=== PATIENT | female | born 1990 | race Caucasian/White ===

== ENCOUNTER → 2018-04-08 09:55 | Outpatient (CLI) | payer OTHER, MEDICAID, SELFPAY | PROVIDERS: Visit Provider Family Medicine | DX: Z34.90 Encounter for supervision of normal pregnancy, unspecified, unspecified trimester (principal) | CPT/HCPCS: 86787 ==

== ENCOUNTER → 2018-05-25 12:26 | Outpatient (CLI) | payer OTHER, MEDICAID, SELFPAY ==
[2018-05-25 16:15] LABS: Vitamin D 25 Hydroxy (D3) 29.2 ng/mL (30.0-100.0)
[2018-06-01 09:59] LABS: AFP, Serum 40.4 ng/mL; Calc Gestational Age 16.9; Cigarette Smoker Y; Donated Egg NOT GIVEN; Donor Egg Age NOT GIVEN; Estriol, Free 1.27 ng/mL; Inhibin A, Dimeric 113 pg/mL; Maternal Weight 189 lbs; Number of Fetuses 1; Previous Pregnancy Down Syndro NOT GIVEN; hCG, MoM 0.47
== END ==
PROVIDERS: Visit Provider Family Medicine
DX: Z34.90 Encounter for supervision of normal pregnancy, unspecified, unspecified trimester (principal); Z3A.14 14 weeks gestation of pregnancy
CPT/HCPCS: 36415; 82105; 82306; 82677; 84702; 86336

== ENCOUNTER → 2018-06-02 10:41 | Outpatient (CLI) | payer OTHER, MEDICAID, SELFPAY ==
[2018-06-02 13:13] LABS: TSH w/ Reflex to FT4 0.64 uIU/mL (0.47-4.68)
== END ==
PROVIDERS: Visit Provider Family Medicine
DX: Z86.39 Personal history of other endocrine, nutritional and metabolic disease (principal); Z3A.14 14 weeks gestation of pregnancy
CPT/HCPCS: 36415; 84443

== ENCOUNTER → 2018-06-10 09:00 | Outpatient (CLI) | payer OTHER, MEDICAID, SELFPAY ==
--- NOTE | 2018-06-10 09:02 | DI.US.S_ITS ---
PROCEDURE: US OB >= 14 WEEKS FETUS INDICATIONS: Anatomy Survey OUTSIDE/PRIOR DATING DATA: Last menstrual period (LMP): Not available. LMP-based estimated date of delivery (EDILIA): Not available. First dating scan (date and location): 03/25/18. Estimated date of delivery (EDILIA) from first dating scan: 11/02/18, plus or -5 days. TECHNIQUE: Real-time scanning was performed of the fetus, with image documentation and biometric measurements. Endovaginal scanning: Not needed for this study COMPARISON: None. FINDINGS: General: A single living intrauterine gestation is present. Presentation: Breech. Placenta: Placental position is posterior, without previa. Amniotic fluid index: 17.1 cm, normal range is 5-24 cm. heart rate: 155 beats per minute. Maternal cervical canal: 5.0 cm long. Normal lower limit is 2.5 cm. biometrics: Biparietal diameter: 4.7 cm, 20 weeks 2 days Head circumference: 17.3 cm, 19 weeks 6 days Abdominal circumference: 14.9 cm, 20 weeks 1 day Femur length: 3.2 cm, 19 weeks 6 days Estimated gestational age from initial scan: 19 weeks 2 days Composite gestational age from present scan: 20 weeks 0 days Estimated weight and percentile: 324 g, 83rd percentile Measurement variability for biometric dating: +/- 7 days from 14 weeks to 15 weeks 6 days gestation, +/- 10 days from 16 weeks to 21 weeks 6 days gestation, +/- 2 weeks from 22 weeks to 27 weeks 6 days gestation, +/- 3 weeks for 28 weeks gestation or later. weight reference: 4500 g or EFW >90/95% is considered macrosomia or large for gestational age. EFW <10% is small for gestational age. EFW 5% or less is considered intra-uterine growth restriction. Anatomic survey: Neuro: Ventricles are non-dilated at less than 10 mm. Cisterna magna is normal at 3-11 mm. Cerebellum is normal in size and morphology. Nuchal skin fold: Normal at less than 6 mm between 14-21 weeks gestational age. Face: Nose and lips, facial profile are normal. Spine: No evidence for spina bifida. Heart: 4-chambered heart is present, with normal ventricular outflow tracts. Note is made of an echogenic focus at the left ventricle, considered an incidental finding in the absence of any additional abnormality elsewhere. Diaphragm: Diaphragm is intact. Stomach: Left-sided stomach is present. Kidneys: No hydronephrosis. Normal is less than 5 mm in 2nd trimester, less than 7 mm in 3rd trimester. Cord: 3-vessel cord has orthotopic insertion. Bladder: Normal in size. Extremities: All 4 extremities identified. IMPRESSION: Appropriate interval growth, no anomaly found. The delivery date is projected to be centered on 11/02/18, plus or -5 days, based on the first OB ultrasound that was performed 03/25/18. Dictated by: Eulogio Lock M.D. on 06/10/2018 at 12:29 Approved by: Eulogio Lock M.D. on 06/10/2018 at 12:32
== END ==
PROVIDERS: PCP Family Medicine; Visit Provider Family Medicine
DX: Z34.02 Encounter for supervision of normal first pregnancy, second trimester (principal); Z3A.20 20 weeks gestation of pregnancy
CPT/HCPCS: 76811

== ENCOUNTER → 2018-08-07 15:30 | Outpatient (CLI) | payer OTHER, MEDICAID, SELFPAY ==
[2018-08-07 17:45] LABS: Hematocrit 33.4 % (36-46); Hemoglobin 11.4 g/dL (12.0-16.0)
[2018-08-07 18:12] LABS: GTT (PREG) 1 Hour PP 50gm Dose 125 mg/dL (76-139)
[2018-08-07 18:43] LABS: TSH w/ Reflex to FT4 0.57 uIU/mL (0.47-4.68)
== END ==
PROVIDERS: PCP Family Medicine; Visit Provider Family Medicine
DX: Z3A.26 26 weeks gestation of pregnancy (principal); E05.90 Thyrotoxicosis, unspecified without thyrotoxic crisis or storm; O99.280 Endocrine, nutritional and metabolic diseases complicating pregnancy, unspecified trimester
CPT/HCPCS: 36415; 82950; 84443; 85014; 85018

== ENCOUNTER → 2018-10-06 08:10 | Outpatient (CLI) | payer OTHER, MEDICAID, SELFPAY ==
--- NOTE | 2018-10-06 08:12 | DI.US.S_ITS ---
PROCEDURE: US OB LIMITED INDICATIONS: size greater than dates OUTSIDE/PRIOR DATING DATA: Last menstrual period (LMP): Unknown. LMP-based estimated date of delivery (EDILIA): Unknown. First dating scan (date and location): 03/25/18. Estimated date of delivery (EDILIA) from first dating scan: 11/02/18. TECHNIQUE: Real-time scanning was performed of the fetus, with image documentation and biometric measurements. COMPARISON: [facility], OB >= 14 WEEKS FETUS, 06/10/2018, 9:34. [facility], OB <= 14 WEEKS FETUS, 03/25/2018, 10:49. [facility], OB < 14 WEEKS + OB TRANSVAG, 03/13/2018, 12:13. FINDINGS: General: A single living intrauterine gestation is present. Presentation: Cephalic Placenta: Placental position is posterior Amniotic fluid index: 15.6 cm heart rate: 135 beats per minute. Maternal cervical canal: Not definitely seen related to positioning. biometrics: Biparietal diameter: 9.5 cm, 38 weeks 4 days Head circumference: 35.1 cm, 40 weeks 6 days Abdominal circumference: 35.0 cm, 30 weeks 6 days Femur length: 7.3 cm, 37 weeks 1 day Estimated gestational age from initial scan: 36 weeks 1 day Composite gestational age from present scan: 38 weeks 6 days Estimated weight and percentile: 3569 g (98 percentile) Measurement variability for biometric dating: +/- 7 days from 14 weeks to 15 weeks 6 days gestation, +/- 10 days from 16 weeks to 21 weeks 6 days gestation, +/- 2 weeks from 22 weeks to 27 weeks 6 days gestation, +/- 3 weeks for 28 weeks gestation or later. weight reference: 4500 g or EFW >90/95% is considered macrosomia or large for gestational age. EFW <10% is small for gestational age. EFW 5% or less is considered intra-uterine growth restriction. Other: Not applicable. IMPRESSION: Single live intrauterine at 38 weeks 6 days (current sonographic EDILIA 10/14/18) is discordant with the estimated due dates based on the previous 2 ultrasounds by greater than 2 weeks. Given the estimated weight of the 98th percentile, the possibility of developing macrosomia is difficult to exclude and clinical correlation is recommended. Dictated by: Tai Balderas M.D. on 10/06/2018 at 9:13 Approved by: Tai Balderas M.D. on 10/06/2018 at 9:17
== END ==
PROVIDERS: PCP Family Medicine; Visit Provider Family Medicine
DX: O36.63X0 Maternal care for excessive fetal growth, third trimester, not applicable or unspecified (principal); Z3A.38 38 weeks gestation of pregnancy
CPT/HCPCS: 76815

== ENCOUNTER → 2018-10-07 15:53 | Outpatient (CLI) | payer OTHER, MEDICAID, SELFPAY ==
[2018-10-08 14:23] LABS: Strep Grp B PCR NEG for Grp B Strep
== END ==
PROVIDERS: PCP Family Medicine; Visit Provider Family Medicine
DX: Z3A.36 36 weeks gestation of pregnancy (principal)
CPT/HCPCS: 87653

== ENCOUNTER → 2018-10-14 15:41 | Outpatient (CLI) | payer OTHER, MEDICAID, SELFPAY | PROVIDERS: PCP Family Medicine; Visit Provider Family Medicine | DX: N89.8 Other specified noninflammatory disorders of vagina (principal); O26.899 Other specified pregnancy related conditions, unspecified trimester | CPT/HCPCS: 87210 ==

== ENCOUNTER → 2018-10-22 12:13 | Outpatient (CLI) | payer OTHER, MEDICAID, SELFPAY ==
--- NOTE | 2018-10-22 12:37 | DI.US.S_ITS ---
PROCEDURE: US OB LIMITED INDICATIONS: SIZE >DATES OUTSIDE/PRIOR DATING DATA: Last menstrual period (LMP): Unknown. LMP-based estimated date of delivery (EDILIA): Unknown. First dating scan (date and location): 03/25/18. Estimated date of delivery (EDILIA) from first dating scan: 11/02/18. TECHNIQUE: Real-time scanning was performed of the fetus, with image documentation and biometric measurements. Endovaginal scanning: No COMPARISON: [facility], OB LIMITED, 10/06/2018, 8:41. FINDINGS: General: A single living intrauterine gestation is present. Presentation: Vertex. Placenta: Placental position is posterior, without previa. Amniotic fluid index: 12.4 cm, normal range is 5-24 cm. heart rate: 131 beats per minute. Maternal cervical canal: Not visualized. biometrics: Biparietal diameter: 40 weeks 2 days Head circumference: 41 weeks 4 days Abdominal circumference: 39 weeks 3 days Femur length: 38 weeks 5 days Estimated gestational age from initial scan: 30 weeks 3 days Composite gestational age from present scan: 40 weeks 0 days Estimated weight and percentile: 3833 g; 89th percentile Measurement variability for biometric dating: +/- 7 days from 14 weeks to 15 weeks 6 days gestation, +/- 10 days from 16 weeks to 21 weeks 6 days gestation, +/- 2 weeks from 22 weeks to 27 weeks 6 days gestation, +/- 3 weeks for 28 weeks gestation or later. weight reference: 4500 g or EFW >90/95% is considered macrosomia or large for gestational age. EFW <10% is small for gestational age. EFW 5% or less is considered intra-uterine growth restriction. Other: Not applicable. IMPRESSION: Single living IUP redemonstrated and interval growth is upper limits of normal. Dictated by: Adán SHEARER Interpreted: Yvette Rcihter MD on 10/22/2018 at 14:48 Approved by: Solitario Henry M.D. on 10/27/2018 at 10:35
== END ==
PROVIDERS: PCP Family Medicine; Visit Provider Family Medicine
DX: O36.63X0 Maternal care for excessive fetal growth, third trimester, not applicable or unspecified (principal); Z3A.40 40 weeks gestation of pregnancy
CPT/HCPCS: 76815

== ENCOUNTER 2018-11-03 09:45 | Inpatient (IN) | payer OTHER, MEDICAID, SELFPAY ==
--- NOTE | 2018-11-03 10:38 | P.HPOB_ITS ---
OB HPI Date/Time Date of admission: 11/03/18 Date Patient Seen: 11/03/18 Time Patient Seen: 12:30 History of Present Condition Chief complaint: labor & delivery : 1 Para: 0 Estimated Date of Delivery: 11/01/18 Estimated Gestational Age (weeks): 40w2d Narrative: Iveth Gutierres is a 28 year old at 40+2 weeks gestation. Patient was measuring larger than dates so US was completed at 36 weeks which gave EFW at 98%. Follow up US two weeks later gave EFW at 89%. No GDM. Patient has been taking prophylactic acyclovir due to h/o genital herpes. No outbreaks this . Pap early in was abnormal, LGSIL with +HPV. Colposcopy done early in , needs cervical biopsy . Indications Indication for induction OB: maternal discomfort and other (concern for macrosomia) History of Present care: good care, initiated at week # (10), number of visits (13) and pounds weight gain (30 lbs) Dating criteria: LMP confirmed by 2nd trimester US Ultrasounds: normal mid trimester US Obstetrical complications: none Medical complications: none Preadmission Labs Blood type: O (+) positive -: Antibody screen: negative, GBS status: negative, HBsAG: negative, HIV: negative, HSV 1: positive, HSV 2: positive and RPR/VDLR: negative -: Chlamydia screen: not detected and Gonorrhea screen: not detected -: Rubella: not immune and Varicella: immune HCT: 35 HCAB: negative PAP: Abnormal (LGSIL, needs biopsy ) Quad screen: Normal Urine: Negative Fasting blood glucose: 125 Evaluation Evaluation Baseline heart rate: 139 Variability: Average (6-10) monitor accelerations: Present monitor decelerations: Absent Uterine Contraction Intensity: Mild Category of Tracing: I Cervical dilation (cm): 2 Cervical effacement (%): 75 station: -1 Comments: Pitocin at 9 milliunits PFS Medical History Hyperthyroidism (Resolved) Goiter (Chronic) Hiatal hernia (Chronic) Surgical History History of appendectomy (Resolved) [place] teeth extracted (Resolved) Family History Other Adopted Social History marital status: occupational status: employed Smoking Status: Former smoker alcohol intake: former substance use type: marijuana Meds Home Medications Medication Instructions Recorded Confirmed Type 1 tab PO DAILY 04/07/18 04/07/18 History vitamin,calcium,dbecfykz-vden-ojfrk acid tablet acyclovir 400 mg tablet 400 mg PO BID #60 tab 09/23/18 Rx Allergies Allergy/AdvReac Type Severity Reaction Status Date / Time cetirizine [From [facility]] Allergy Mild Verified 04/07/18 14:48 some pain meds AdvReac Mild vomiting Uncoded 04/07/18 14:48 Review of Systems Review of Systems All systems reviewed & are unremarkable except as noted in HPI and below Exam Const General: cooperative, healthy appearing and comfortable HENMT Head: normal to inspection Nose: external nose normal Mouth: oral mucosae normal Eyes General: appearance normal, both eyes and all related structures Neck Neck: normal visual inspection and No lymphadenopathy Resp Effort & Inspection: normal respiratory effort Auscultation: clear to auscultation bilaterally Cardio Rate: regular rate Rhythm: regular rhythm Heart Sounds: S1 normal and S2 normal External Female Exam: external appearance normal Presentation: vertex Estimated Weight (lbs): 9 Back/Spine/Pelvis Back: normal to inspection Neuro General: alert, awake, oriented x3 and no focal motor deficits Extrem General: normal to inspection and no pedal edema Objective Labs Result Diagrams: 11/03/18 09:59 Assessment and Plan (1) 40 weeks gestation of : Current visit: Yes Status: Acute 28 year old at 40+2 weeks gestation here for elective induction for maternal discomfort and suspected macrosomina. Cowan score of 8. Risks and benefits of induction reviewed. Consent signed. Plan - GBS negative - Pitocin induction - AROM when able - Epidural upon request
[2018-11-03 10:47] LABS: Add Manual Diff / Slide Review NO; Basophils Percent Auto 0.2 % (0-2); Eosinophils Percent Auto 0.1 % (2-4); Lymphocytes Percent Auto 14.1 % (25-40); Mean Corpuscular HGB Conc 34.3 % (30-36); Mean Corpuscular Hemoglobin 28.6 PG (26-34); Mean Corpuscular Volume 83.4 fL (80-100); Monocytes Percent Auto 5.9 % (3-14); Neutrophils Absolute Auto 8300 /uL (3000-5900); Neutrophils Percent Auto 79.7 % (50-75); Platelet Count 189 X10^3/uL (150-400); White Blood Cell Count 10.4 X10^3/uL (4.5-11.0)
[2018-11-03] MEDS: LACTATED RINGERS 1,000 ML 100 ML IV (10:57)
[2018-11-03] MEDS: OXYTOCIN PREMIX 30 UNIT/500 ML PLAST..BAG IV (10:58)
[2018-11-03 12:06] VITALS: BP 142/83
--- NOTE | 2018-11-03 17:22 | PM.OBPNLAB ---
Date/Time Date Patient Seen: 11/03/18 Time Patient Seen: 17:00 Pain Control Pain control: tolerating well Pelvic Exam Dilation (cm): 2 Effacement (%): 90 station: -1 Contractions Monitor mode: External Pitocin rate (mU/min): 12 Contraction frequency (min): 2 Contraction pattern: Regular Contraction intensity: Moderate Status status: Category l Heart Rate Baseline: 120 Monitor Accelerations: Present Monitor Decelerations: Absent Monitor Variability: Moderate Comments: Assessment and Plan Assessment: induction ongoing Comments: Minimal change with pitocin all day. Will shut off pitocin, allow patient to eat and shower then give Cytotec overnight.
[2018-11-03] MEDS: ONDANSETRON 4 MG/2 ML INJ IV (20:22)
[2018-11-04] MEDS: ONDANSETRON 4 MG/2 ML INJ IV ×4 (01:11→14:14)
[2018-11-04] MEDS: miSOPROStol 25 MCG TABLET VAG (01:45)
--- NOTE | 2018-11-04 07:27 | PM.OBPNLAB ---
Date/Time Date Patient Seen: 11/04/18 Time Patient Seen: 07:09 Pain Control Pain control: tolerating well Comments: Patient had nausea and vomiting overnight. Nausea relieved with zofran. Pelvic Exam Dilation (cm): 2 Effacement (%): 90 station: -1 Amniotic membrane status: Intact Comments: 2.5 cm with cervix midline compared to very anterior yesterday Contractions Monitor mode: External Pitocin rate (mU/min): 4 Contraction frequency (min): 2 Contraction pattern: Irregular Contraction intensity: Moderate Status status: Category l Heart Rate Baseline: 120 Monitor Accelerations: Present Monitor Decelerations: Absent Monitor Variability: Moderate Assessment and Plan Assessment: induction ongoing Plan: continuous present management Comments: S/p one dose of Cytotec overnight. Restarted pitocin at 6 AM. Continue pitocin. Epidural upon request.
[2018-11-04] MEDS: LACTATED RINGERS 1,000 ML 100 ML IV ×2 (09:11→14:32)
[2018-11-04] MEDS: ACYCLOVIR 400 MG TABLET PO (12:33)
--- NOTE | 2018-11-04 14:54 | PM.OBPNLAB ---
Date/Time Date Patient Seen: 11/04/18 Time Patient Seen: 12:45 Pain Control Pain control: tolerating well and epidural Pelvic Exam Dilation (cm): 4 Effacement (%): 100 station: 0 Amniotic membrane status: Ruptured Contractions Monitor mode: External Pitocin rate (mU/min): 6 Contraction frequency (min): 2 Contraction pattern: Regular Contraction intensity: Moderate Status status: Category l Heart Rate Baseline: 120 Monitor Accelerations: Present Monitor Decelerations: Absent Monitor Variability: Moderate Assessment and Plan Assessment: active labor and induction ongoing Plan: continuous present management
[2018-11-04] MEDS: CITRIC ACID/SODIUM CITRATE 15 ML SOLUTION 30 ML PO (16:14)
--- NOTE | 2018-11-04 17:03 | PM.OBPNLAB ---
Date/Time Date Patient Seen: 11/04/18 Time Patient Seen: 17:00 Pain Control Pain control: epidural Comments: Was having right pelvic pain, epidural just redosed Pelvic Exam Dilation (cm): 10 Effacement (%): 100 station: 0 Amniotic membrane status: Ruptured Contractions Monitor mode: External Pitocin rate (mU/min): 8 Contraction frequency (min): 2 Contraction pattern: Regular Contraction intensity: Strong/Firm Status status: Category ll Heart Rate Baseline: 130 Monitor Accelerations: Present Monitor Decelerations: Variable (and early decels) Monitor Variability: Moderate Assessment and Plan Assessment: active labor Comments: Patient complete and having intermittent early and variable decelerations. Start pushing.
--- NOTE | 2018-11-04 19:55 | PM.OBPNLAB ---
Date/Time Date Patient Seen: 11/04/18 Time Patient Seen: 19:55 Pain Control Pain control: epidural (complaining of pain on the right side of the abdomen) Pelvic Exam Dilation (cm): 10 Effacement (%): 100 station: +1 Amniotic membrane status: Ruptured Contractions Monitor mode: External Pitocin rate (mU/min): 8 Contraction frequency (min): 2 Contraction pattern: Regular Contraction intensity: Strong/Firm Status status: Category ll Heart Rate Baseline: 150 Monitor Accelerations: Present Monitor Decelerations: Variable Monitor Variability: Moderate Assessment and Plan Assessment: active labor and induction ongoing Comments: Patient pushing for 2.5 hours with minimal progress. Consulted Dr. Moseley for possible forceps and she will come evaluate the patient.
--- NOTE | 2018-11-04 20:38 | PM.CN ---
History of Present Illness Date Patient Seen: 11/04/18 Time Patient Seen: 20:39 Chief complaint: labor & delivery Reason for consult: Forceps assist for vaginal delivery Requesting provider: Inez Morocho [facility] Medical History Hyperthyroidism (Resolved) Goiter (Chronic) Hiatal hernia (Chronic) Surgical History History of appendectomy (Resolved) [place] teeth extracted (Resolved) Family History Other Adopted Social History marital status: occupational status: employed Smoking Status: Former smoker alcohol intake: former substance use type: marijuana Meds Home Medications Medication Instructions Recorded Confirmed Type 1 tab PO DAILY 04/07/18 11/04/18 History vitamin,calcium,vyebscsg-yare-qklak acid tablet acyclovir 400 mg tablet 400 mg PO BID #60 tab 09/23/18 11/04/18 Rx Allergies Allergy/AdvReac Type Severity Reaction Status Date / Time cetirizine [From Zyrtec] Allergy Mild Verified 04/07/18 14:48 some pain meds AdvReac Mild vomiting Uncoded 04/07/18 14:48 Review of Systems Review of Systems Patient is requesting forceps attempt rather than proceeding with section for failure to progress. Patient is aware of the increased risk of vaginal tears including tears into the rectum with forceps. Small risk of force on the baby's head. Increased risk of shoulder dystocia. Exam Narrative Exam Narrative: The baby head was at +1 station. There was significant molding to the head. The baby was determined to be in the ARLINE position. heart tones baseline 150 with variables to the 60s with contractions and pushing. The forceps were placed without difficulty. With the 1st contraction the infant's head was brought to the hymenal ring. With the 2nd contraction the 's head was brought to . The forceps were removed and Dr. Morocho proceeded with delivery of the infant's head followed by the shoulders without significant dystocia. A nuchal cord was released. The was placed on maternal abdomen. The infant did not and immediately respond to stimulation so the cord was clamped cut and infant taken to maternal warmer. Objective Labs Result Diagrams: 11/03/18 09:59 Assessment & Plan (1) Maternal exhaustion complicating labor and delivery: Current visit: Yes Status: Acute (2) 40 weeks gestation of : Current visit: Yes Status: Acute Plan: Assessment/Plan Narrative: Primigravida at 40 weeks with maternal exhaustion with successful forceps to expedite delivery. Both mother and are doing well.
--- NOTE | 2018-11-04 20:45 | P.CONS_ITS ---
History of Present Illness Date Patient Seen: 11/04/18 Time Patient Seen: 20:39 Chief complaint: labor & delivery Reason for consult: Forceps assist for vaginal delivery Requesting provider: Inez Morocho [facility] Medical History Hyperthyroidism (Resolved) Goiter (Chronic) Hiatal hernia (Chronic) Surgical History History of appendectomy (Resolved) [place] teeth extracted (Resolved) Family History Other Adopted Social History marital status: occupational status: employed Smoking Status: Former smoker alcohol intake: former substance use type: marijuana Meds Home Medications Medication Instructions Recorded Confirmed Type 1 tab PO DAILY 04/07/18 11/04/18 History vitamin,calcium,mxcfhifj-nswu-awvvi acid tablet acyclovir 400 mg tablet 400 mg PO BID #60 tab 09/23/18 11/04/18 Rx Allergies Allergy/AdvReac Type Severity Reaction Status Date / Time cetirizine [From Zyrtec] Allergy Mild Verified 04/07/18 14:48 some pain meds AdvReac Mild vomiting Uncoded 04/07/18 14:48 Review of Systems Review of Systems Patient is requesting forceps attempt rather than proceeding with section for failure to progress. Patient is aware of the increased risk of vaginal tears including tears into the rectum with forceps. Small risk of force on the baby's head. Increased risk of shoulder dystocia. Exam Narrative Exam Narrative: The baby head was at +1 station. There was significant molding to the head. The baby was determined to be in the ARLINE position. heart tones baseline 150 with variables to the 60s with contractions and pushing. The forceps were placed without difficulty. With the 1st contraction the infant' s head was brought to the hymenal ring. With the 2nd contraction the 's head was brought to . The forceps were removed and Dr. Morocho proceeded with delivery of the 's head followed by the shoulders without significant dystocia. A nuchal cord was released. The infant was placed on maternal abdomen. The did not and immediately respond to stimulation so the cord was clamped cut and taken to maternal warmer. Objective Labs Result Diagrams: 11/03/18 09:59 Assessment & Plan (1) Maternal exhaustion complicating labor and delivery: Current visit: Yes Status: Acute (2) 40 weeks gestation of : Current visit: Yes Status: Acute Plan: Assessment/Plan Narrative: Primigravida at 40 weeks with maternal exhaustion with successful forceps to expedite delivery. Both mother and infant are doing well.
--- NOTE | 2018-11-04 21:17 | PM.OBPRVD ---
Delivery date: 11/04/18 Intrapartal events: Prolonged 2nd Stage > 2.5 hours Induction method: per pitocin protocol Delivery monitor: external FHT Route of delivery: forceps Indication for instrumentation: other (failure to descend, maternal exhaustion) Laceration description: Vaginal - 2nd Degree Delivery repair: vicryl Estimated blood loss (mL): 400 Anesthesia type: Epidural Narrative: VAGINAL DELIVERY NOTE BRIEF HISTORY: Patient is a 28-year-old at 40+3 weeks who gave on 11/04/18 at 20:30. EDILIA: 11/01/18 Hospital problems: 40 weeks of Epidural anesthesia STAGE I: Labor The patient labored for 7 hours and 41 minutes. Labor onset: 11/04/18 at 0915 Indications for Induction: Elective, maternal discomfort, suspected macrosomia Induction agents: Cytotec, pitocin Spontaneous rupture of membranes occurred at 0915 on 11/04/18. Amniotic fluid: clear though was meconium stained at delivery. She reached full dilation at 1657. Analgesia for labor was with epidural. STAGE II: Delivery The second stage of labor lasted 3 hours and 33 minutes. Due to prolonged second stage with minimal progress, Dr. Moseley was consulted and successfully brought the infant to with forceps. Delivery occurred at 2030 after reduction of a nuchal cord. was ARLINE. Infant initially placed on mother's abdomen however was pale without spontaneous respirations so was taken to the warmer. Initial was 2. rapidly improved with two minutes of PPV. 5 and 10 minute apgars were 7 and 9 respectfully. STAGE III: Placenta/Cord The third stage of labor lasted 5 minutes. Placental delivered after active management and it appeared intact with a 3 vessel cord. Pitocin bolus given after delivery of placenta. Labial laceration: Left labial first degree Vaginal laceration: Second degree Repair: 4-0 vicryl in usual fashion Complications: None. Fundus below firm at umbilicus EBL: 400 mL. Needle and sponge counts were correct. The vagina was inspected and no items were left in situ.
--- NOTE | 2018-11-05 07:47 | PM.OBPN.1 ---
Subjective - OB Patient comments: no complaints and tolerating diet baby status: doing well [place] feeding status: exclusively breast feeding Narrative: Bleeding is heavier than a period though not excessive. Patient denies pain. Ambulating and voiding without difficulty. Date Patient Seen: 11/05/18 Time Patient Seen: 08:00 Exam Vital Signs (past 8 hours): Temperature 99.4? blood pressure 127/71 heart rate 109 Narrative Exam Narrative: General: Awake and alert, no acute distress. HEENT: NCAT, EOMI, moist oral mucosa CV: Regular rate and rhythm, no murmurs, rubs or gallops Lungs: CTAB, no wheezes, rales, or rhonchi Abdomen: Soft, nontender; bowel tones active; uterus firm 1 cm below umbilicus Extremities: Warm, no edema, 2+ pedal pulses bilaterally Objective Labs Result Diagrams: 11/03/18 09:59 Assessment & Plan (1) 40 weeks gestation of : Status: Acute Current Visit: Yes (2) Maternal exhaustion complicating labor and delivery: Status: Acute Current Visit: Yes Plan day: 1 plan OB: routine care Comments: day 1 after forceps assisted vaginal delivery. Patient doing well. Anticipate discharge home tomorrow. Time Spent With Patient Total time spent is greater than 50% in coordination of care (as documented) at patient's floor/unit and/or counseling patient: less than 15 minutes
[2018-11-05] MEDS: DOCUSATE 250 MG CAPSULE PO (08:56)
--- NOTE | 2018-11-06 11:30 | PM.OBDS.1 ---
Discharge Providers Date of admission: 11/03/18 09:45 Primary care physician: Inez Morocho DO Consults: 11/04/18 21:59 Consult to Material Handling Technician Routine Comment: Discharge provider: Inez Morocho DO Discharge Date: 11/06/18 Summary Date Patient Seen: 11/06/18 Time Patient Seen: 09:45 Hospital Course: Patient is a 28-year-old G1 now P1 who delivered at 40 and 3 weeks gestation on 11/04/18 via forceps assisted vaginal delivery for lack of descent and maternal exhaustion. Infant required two minutes of PPV immediately after delivery with rapid improvement. Second-degree vaginal and labial tears were repaired in the usual fashion. She was brought in for induction due to concern for macrosomia and maternal discomfort. Infant weighed 9 pounds. course has been uncomplicated. Bleeding is moderate. Pain well controlled without any medication. Patient is ambulating, eating and voiding without difficulty. Working on breast feeding with support. Counseled patient to call for fevers, severe pain or bleeding through more than a pad an hour. Follow up with Dr. Morocho in 6 weeks. Exam Temperature 97.6 Blood pressure 125/80 Heart rate 91 General: Awake and alert, no acute distress. HEENT: NCAT, EOMI, moist oral mucosa CV: Regular rate and rhythm, no murmurs, rubs or gallops Lungs: CTAB, no wheezes, rales, or rhonchi Abdomen: Soft, nontender; bowel tones active; uterus firm 1 cm below umbilicus Extremities: Warm, no edema, 2+ pedal pulses bilaterally Peripartum Data Infant Delivery Method: Assisted Delivery (Forceps) Laceration description: Vaginal - 2nd Degree complications: none Discharge Diagnosis (1) 40 weeks gestation of : Status: Acute (2) Maternal exhaustion complicating labor and delivery: Status: Acute (3) Forceps delivery: Status: Acute Status at Discharge Functional status at discharge: independent ambulation Overall status at discharge: patient is back to baseline Time Spent with Patient Total time spent providing and/or coordinating discharge services: Less than 30 minutes Objective Labs Result Diagrams: 11/03/18 09:59 Discharge Plan Discharge Plan Patient Disposition: Home Discharge Med Rec/Prescriptions Prescriptions: New docusate sodium 250 mg Capsule 250 mg PO DAILY Qty: 30 RF: 0 Continue prenat.vits,janeth,feg-nmem-tsvgy [ Vitamin] tablet 1 tab PO DAILY RF: 0 Discontinued acyclovir 400 mg tablet 400 mg PO BID Qty: 60 RF: 0 Follow up/Referrals: Inez Morocho DO [Primary Care Provider] - 6 Weeks (November 09Friday, at 2:00pm with Mylene Browning December 04Friday, at 11:00am with Dr Morocho) Provider Discharge Instructions Diet: Diet as Tolerated Visit Report/Discharge Packet Stand Alone Forms: Discharge: Care Visit Report Forms: Stroke Signs & Symptoms Discharge Data Primary Care Provider: Inez Morocho Attending Provider: Inez Morocho Admit Date/Time: 11/03/18 09:45
[2018-11-06] MEDS: IBUPROFEN 600 MG TABLET PO (11:50)
[2018-11-06 11:51] VITALS: BP 141/76; PULSE 97; RESP 16; TEMP 36.6
== END 2018-11-06 14:50 | disposition home or self-care (01) | DRG 560 ==
PROVIDERS: Admitting Provider Family Medicine; PCP Family Medicine; Visit Provider Family Medicine
DX: O36.63X0 Maternal care for excessive fetal growth, third trimester, not applicable or unspecified (principal); Z3A.40 40 weeks gestation of pregnancy; Z37.0 Single live birth; O75.81 Maternal exhaustion complicating labor and delivery; O70.1 Second degree perineal laceration during delivery; O69.1XX0 Labor and delivery complicated by cord around neck, with compression, not applicable or unspecified
CPT/HCPCS: 01967; 59050; 59409; 85025; 86850; 86900; 86901; G0379; J2405; J2590

== ENCOUNTER 2019-04-03 17:59 | Emergency (ER) | payer OTHER, MEDICAID, SELFPAY ==
--- NOTE | 2019-04-03 18:13 | DI.RAD.S_ITS ---
PROCEDURE: XR CHEST 2V INDICATIONS: Productive cough TECHNIQUE: 2 views of the chest were acquired. COMPARISON: None. FINDINGS: Surgical changes and devices: None. Lungs and pleura: Lungs are clear. No pleural effusions or pneumothorax. Mediastinum: Mediastinal contours are normal. Heart size is normal. Bones and chest wall: No suspicious bony abnormalities. Soft tissues appear unremarkable. IMPRESSION: No acute disease. Dictated by: Miguel Carroll M.D. on 04/03/2019 at 18:55 Approved by: Miguel Carroll M.D. on 04/03/2019 at 18:56
[2019-04-03 19:01] VITALS: BP 112/73; PULSE 78; RESP 18; TEMP 37.2; O2SAT 99; BMI 34.3
[2019-04-03 21:18] VITALS: BP 115/68; PULSE 82; RESP 18; TEMP 36.9; O2SAT 98
--- NOTE | 2019-04-03 22:41 | ED.URI ---
HPI - URI/Sore Throat <NOMI FraustoBC - Last Filed: 04/03/19 22:43> General Chief Complaint: Upper Respiratory Symptoms Stated Complaint: productive cough x3 weeks Time Seen by Provider: 04/03/19 20:53 Source: patient Mode of arrival: ambulatory Limitations: no limitations History of Present Illness HPI Narrative: The patient is a 29-year-old female who presents with her son for chief complaint of a cough. She is a former smoker and has history of forceps delivery. She states that she has not had any fever, nausea, vomiting or diarrhea. She states that she does not have any ear pain. She complains of sore throat a few days ago. She states she started with laryngitis. She is now able to speak. She is concerned she feels her and her son are passing the same illness back and forth. She is eating and drinking well. Related Data Home Medications Medication Instructions Recorded Confirmed 1 tab PO DAILY 04/07/18 11/04/18 vitamin,calcium,oztfeewn-kbpb-pnvav acid tablet Previous Rx's Medication Instructions Recorded docusate sodium 250 mg PO DAILY #30 cap 11/06/18 metoclopramide 10 mg tablet 10 mg PO QID #120 tab 12/16/18 levonorgestrel 1.5 mg tablet 1.5 mg PO ONCE #1 tab 01/07/19 norethindrone (contraceptive) 0.35 0.35 mg PO DAILY #28 tab 01/07/19 mg tablet Allergies Allergy/AdvReac Type Severity Reaction Status Date / Time cetirizine [From Zyrtec] AdvReac Mild Verified 04/03/19 19:01 hydrocodone [From Vicodin] AdvReac Verified 04/03/19 19:01 Review of Systems <LEANNA Frausto - Last Filed: 04/03/19 22:43> Review of Systems GENERAL: Denies chills, fatigue, malaise, fever, sweats. HEENT: See HPI RESPIRATORY: See HPI CARDIOVASCULAR: Denies chest pain, palpitations, orthopnea, edema, GASTROINTESTINAL: Denies nausea, vomiting, abdominal pain, diarrhea, constipation, melena. : Denies dysuria, frequency, incontinence, hematuria, urinary retention. MUSCULOSKELETAL: denies weakness, joint pain, or bony pain SKIN: Denies rash, skin lesions, or other NEUROLOGIC: Denies weakness, headache, numbness, change in speech, confusion, seizures, incoordination. PSYCHIATRIC: No concerning psychosocial issues. 12 point review of systems is negative except for those stated above PFSH <LEANNA Frausto - Last Filed: 04/03/19 22:43> Medical History Abnormal Pap smear of cervix (Acute) Goiter (Chronic) Hiatal hernia (Chronic) Hyperthyroidism (Resolved) Surgical History History of appendectomy (Resolved) [place] teeth extracted (Resolved) Family History Other Adopted Social History (Updated 11/03/18 @ 13:18 by Inez Morocho DO) marital status: occupational status: employed Smoking Status: Former smoker alcohol intake: former substance use type: marijuana Family History Other Adopted Social History marital status: occupational status: employed Smoking Status: Former smoker alcohol intake: former substance use type: marijuana Exam <LEANNA Frausto - Last Filed: 04/03/19 22:43> Narrative Exam Narrative: GENERAL: This is a well-nourished, well-developed patient, no acute distress walking around exam room HEAD: Atraumatic. Normocephalic. No temporal or scalp tenderness. EYES: Pupils equal round and reactive. Extraocular motions intact. No scleral icterus. No injection or drainage. ENT: Nose without bleeding, purulent drainage or septal hematoma. Throat without erythema, tonsillar hypertrophy or exudate. Uvula midline. Airway patent. NECK: Trachea midline. No JVD or lymphadenopathy. Supple, nontender, no meningeal signs. CARDIOVASCULAR: Regular rate and rhythm. RESPIRATORY: Clear to auscultation. Breath sounds equal bilaterally. No wheezes, rales, or rhonchi. Single dry cough noted on exam. No accessory muscle use. No productive cough. No stridor. GASTROINTESTINAL: Abdomen soft, non-tender, nondistended. No hepato-splenomegaly, or palpable masses. No guarding. EXTREMITIES: No clubbing, cyanosis, or edema. No joint tenderness, effusion, or edema noted. BACK: Nontender without deformity or crepitance. No flank tenderness. NEURO: AOx3. SKIN: No rash or erythema. Initial Vital Signs Initial Vital Signs: Vital Signs Temperature 98.9 F 04/03/19 19:01 Pulse Rate 78 04/03/19 19:01 Respiratory Rate 18 04/03/19 19:01 Blood Pressure 112/73 04/03/19 19:01 Pulse Oximetry 99 04/03/19 19:01 <Demario Bonilla DO - Last Filed: 04/04/19 01:04> Initial Vital Signs Initial Vital Signs: Vital Signs Temperature 98.9 F 04/03/19 19:01 Pulse Rate 78 04/03/19 19:01 Respiratory Rate 18 04/03/19 19:01 Blood Pressure 112/73 04/03/19 19:01 Pulse Oximetry 99 04/03/19 19:01 Course <LEANNA Frausto - Last Filed: 04/03/19 22:43> Orders Ordered: ED Orders 04/03/19 18:13 XR chest 2V Stat Vital Signs - 8 hr 04/03/19 19:01 04/03/19 21:18 Temperature 98.9 F 98.4 F Pulse Rate 78 82 Respiratory Rate 18 18 Blood Pressure 112/73 Blood Pressure [Left Arm] 115/68 Pulse Oximetry 99 98 <DO Linsey Waldrop Last Filed: 04/04/19 01:04> Orders Ordered: ED Orders 04/03/19 18:13 XR chest 2V Stat Vital Signs - 8 hr 04/03/19 19:01 04/03/19 21:18 Temperature 98.9 F 98.4 F Pulse Rate 78 82 Respiratory Rate 18 18 Blood Pressure 112/73 Blood Pressure [Left Arm] 115/68 Pulse Oximetry 99 98 MDM - URI/Sore Throat <LEANNA Frausto - Last Filed: 04/03/19 22:43> Imaging Data Chest x-ray: Radiologist's impression: Iveth Gutierres 29 F [address] [address] XRay Report Signed Patient: Parish Gutierres#: [id number] : 1990Acct:[id number] Age/Sex: 29 / FDate of Service: 04/03/19 Loc: ED Accession Number: [id number] Procedure: XR chest 2V Ordering Provider: Demario Bonilla D.O. PROCEDURE: XR CHEST 2V INDICATIONS: Productive cough TECHNIQUE: 2 views of the chest were acquired. COMPARISON: None. FINDINGS: Surgical changes and devices: None. Lungs and pleura: Lungs are clear. No pleural effusions or pneumothorax. Mediastinum: Mediastinal contours are normal. Heart size is normal. Bones and chest wall: No suspicious bony abnormalities. Soft tissues appear unremarkable. IMPRESSION: No acute disease. Dictated by: Miguel Carroll M.D. on 04/03/2019 at 18:55 Approved by: Miguel Carroll M.D. on 04/03/2019 at 18:56 MDM Narrative Medical decision making narrative: The patient has a negative x-ray and an overall benign exam. I discussed at length continued use of ussb-vsw-ynicyft medications as needed and able. Discussed follow-up primary care provider. Discussed return precautions of shortness of breath, chest pain or acute concerns. Patient has no questions or concerns upon discharge. Discharge Plan Departure Patient Disposition: Home Clinical Impression: Upper respiratory infection Qualifiers: URI type: unspecified viral URI Qualified Code(s): J06.9 - Acute upper respiratory infection, unspecified Discharge Date/Time: 04/03/19 21:26 Interventions: ED Discharge Assessment Last Done: 04/03/19 21:25 Instructions: DI for Viral Upper Respiratory Infection -- Adult Activity Restrictions/Additional Instructions: Your x-ray is normal today. I suggested mvex-xsn-pfmklvo medications as needed for cough and congestion. Please follow up with primary care provider for new or worsening symptoms. Please come back to emergency department for any acute concerns such as chest pain shortness of breath etc.. Please flush fluids and rest. Please and be sure to do hand hygiene. The Prescriptions: No Action norethindrone (contraceptive) 0.35 mg tablet 0.35 mg PO DAILY Qty: 28 RF: 11 levonorgestrel [Plan B One-Step] 1.5 mg tablet 1.5 mg PO ONCE Qty: 1 RF: 0 prenat.vits,janeth,twp-ceyl-oeooz [ Vitamin] tablet 1 tab PO DAILY RF: 0 metoclopramide HCl [Reglan] 10 mg tablet 10 mg PO QID Qty: 120 RF: 2 docusate sodium 250 mg Capsule 250 mg PO DAILY Qty: 30 RF: 0 Referrals: Inez Morocho DO [Primary Care Provider] - <Demario Bonilla DO - Last Filed: 04/04/19 01:04> Cosign ED Attending Elizabeth Attestation: I was available for consultation during this patient's emergency department encounter
== END 2019-04-03 21:26 | disposition home or self-care (01) ==
PROVIDERS: Emergency Provider Nurse Practitioner Family; PCP Family Medicine
DX: J06.9 Acute upper respiratory infection, unspecified (principal)
CPT/HCPCS: 71046; 99282; 99283

== ENCOUNTER 2019-07-08 13:45 | Day surgery (SDC) | payer OTHER, MEDICAID, SELFPAY ==
[2019-06-23 08:13] VITALS: BMI 34.0
[2019-07-08] VITALS (7 sets, daily range): BP systolic 98–131; BP diastolic 59–82; PULSE 55–80; RESP 14–76; TEMP 36.5–37.3; O2SAT 94–98; BMI 31.8
--- NOTE | 2019-07-08 | PATH_ITS ---
[facility] Accession Number: [id number] . 01 Material submitted: . PART A: body - NO SITE DESIGNATED PART B: endocervix - ENDOCERVICAL CURETTINGS . 02 Diagnosis: A. Presumed Cervix, LEEP Cone: High-grade squamous intraepithelial lesion/MARTIN-2 with focal gland neck involvement and adjacent regions of low-grade squamous intraepithelial lesion/MARTIN-1. The apparent ectocervical margin is negative for dysplasia. The intact, apparent endocervical margin is negative for dysplasia. No invasive tumor identified. Changes consistent with previous instrumentation are present. . B. Endocervical Curettings: Portions of poorly proliferative endometrium with prominent vessels suggestive of polyp; negative for glandular hyperplasia, cytologic atypia, and malignancy. Strips of glandular epithelium, possibly from endocervix. Please see comment. MRV/07/12/2019 . 02 Comment: Part B: Due to the scant nature of possible endocervical tissue in this biopsy, it may not be entirely claims service representative of this patient's endocervix. Additional sampling could be considered, if clinically appropriate. Some strips of glandular epithelium suggest possible origin from endocervix; however, the fragmented nature of the tissue precludes definitive assessment. . This biopsy correlates with Pap smear [id number]. . 02 Electronically signed: . Elise Oliveira MD, Pathologist NPI- [id number] . 01 Gross description: . (A) Received in formalin, labeled LEEP cone, is an unoriented cervical LEEP excision (diameter-1.7 x 1.5 cm, 0.5 cm in depth) with yates-rios, smooth, shiny mucosa. No nodules, masses, or lesions are identified. The possible endocervical margin is inked orange, and the possible ectocervical and stromal margins are inked blue. Radially sectioned and entirely submitted in cassettes A1-A3. (B) Received in formalin, labeled endocervical curettings, are multiple fragments of yates-rios tissue (2.5 x 1.0 x 0.1 cm in aggregate). Filtered and entirely submitted in cassette B1. ([id number]) /FRR . 02 Pathologist provided ICD-10: N87.1 . 02 CPT . 415791, [id number] Performed at: 01 [facility] [address] [id number] MD Ki Carnes MD Phone: [phone] Performed at: 02 [facility] [address] [place] [id number] MD Emelina Soto MD Phone: [phone]
[2019-07-08] MEDS: LACTATED RINGERS 1,000 ML 100 ML IV (14:43)
--- NOTE | 2019-07-08 14:49 | PM.PREOP ---
Pre-operative Note Interval Note History & Physical reviewed/Exam performed by Physician: Yes Changes to H&P: No H&P completed within 30 days and has changed as indicated here:: See outpatient note from 06/11/2019
--- NOTE | 2019-07-08 14:50 | SUR.OPER ---
Lithotomy on padded OR bed, head on pillow, arms secured on padded arm boards at <90 degrees abduction. Legs secured in padded yellow fins stirrups.
[2019-07-08] MEDS: BUPIVACAINE 0.5% W/ EPI (PF) VIAL 30 ML INJ (15:27)
[2019-07-08] MEDS: POTASSIUM IODIDE/IODINE 473 ML SOLUTION TOP (15:27)
--- NOTE | 2019-07-08 15:40 | PM.OP.1 ---
Operative Date/Time/Diagnoses Date of procedure: 07/08/19 Time of procedure: 15:40 Pre-op diagnosis: MARTIN 3 of the cervix Post-op diagnosis: same Procedure & Clinicians Procedure: LEEP procedure Same procedure as scheduled: Yes Indications: MARTIN 3 of the cervix Surgeon: Marry Moseley Click Yes if Unassisted: Yes Anesthesia Type: General Operative Notes Findings: Normal exam under anesthesia. Dime-size nonstaining area of the cervix with Lugol's circumferentially around the cervical os Closure Type: not applicable Specimen(s): other (LEEP of the cervix and ECC) Estimated Blood Loss (mL): 2 Blood products transfused: none Procedure in detail: Patient was brought to the operating room she underwent general. She was placed in low stirrups. A coated bivalve speculum was placed into the vagina. The cervix was injected with 0.5% Marcaine with epinephrine. A coated single-tooth tenaculum was placed on the anterior lip of the cervix. The cervix was stained with Lugol's. The loop set at 60 W of cutting was used to remove the entire squamocolumnar junction. An ECC was performed. The tissue was cauterized external to the LEEP with ball cautery to extend the treatment zone. Monsel's was placed. The patient went to recovery room in good condition. Counts of instruments and sponges were correct. The tissue was sent for pathology. Complications: none Condition: stable Disposition: same day surgery Plan for aftercare: Home when awake and stable. Treatment and follow-up based on biopsy results
== END 2019-07-08 16:23 | disposition home or self-care (01) ==
PROVIDERS: PCP Family Medicine; Visit Provider Specialist
PROC: 0UBC7ZZ Excision of Cervix, Via Natural or Artificial Opening (ICD-10-PCS; CPT 57522; principal; 2019-07-08 15:00)
DX: D06.9 Carcinoma in situ of cervix, unspecified (principal); Z87.891 Personal history of nicotine dependence
CPT/HCPCS: 57522; J2250; J3010

== ENCOUNTER 2019-08-19 11:22 | Emergency (ER) | payer OTHER, MEDICAID, SELFPAY ==
[2019-08-19 11:29] VITALS: BP 135/83; PULSE 79; RESP 16; TEMP 36.9; O2SAT 99; BMI 24.1
--- NOTE | 2019-08-19 11:39 | DI.RAD.S_ITS ---
PROCEDURE: XR CHEST 2V INDICATIONS: cough TECHNIQUE: 2 views of the chest were acquired. COMPARISON: [facility], CR, XR CHEST 2V, 04/03/2019, 18:48. FINDINGS: Surgical changes and devices: None. Lungs and pleura: Lungs are clear. No pleural effusions or pneumothorax. Mediastinum: Mediastinal contours are normal. Heart size is normal. Bones and chest wall: No suspicious bony abnormalities. Soft tissues appear unremarkable. IMPRESSION: Negative chest. No acute cardiopulmonary process is evident. Dictated by: Tai Balderas M.D. on 08/19/2019 at 11:12 Approved by: Tai Balderas M.D. on 08/19/2019 at 11:15
--- NOTE | 2019-08-19 11:46 | ED.ABDPAIN ---
HPI - Abdominal Pain <LEANNA Frausto - Last Filed: 08/19/19 18:21> General Chief Complaint: Abdominal Pain Stated Complaint: vomiting x3 days,back pain,cough Time Seen by Provider: 08/19/19 11:28 Source: patient Mode of arrival: Ambulatory History of Present Illness HPI narrative: The patient is a 21-year-old female nonsmoker with a history of gastroenteritis and bipolar depression who presents with a chief complaint of cough for the past week, vomiting, nausea and back pain. She states she started with cold symptoms a week ago, but then her cough became so bad that she cannot sleep. She states that she is coughing so much she vomits. She states she cannot keep fluids down. She denies any abdominal pain other than when she is vomiting. Denies any diarrhea. Concerned about dehydration. She states she has muscle aches, chills, sweats and feels like she has the flu. She denies any chest pain. She complains of sore throat with coughing and vomiting. She has taken ibuprofen to feel better, has not had anything today. She denies any dysuria urgency or frequency. She denies any ear pain. Related Data Previous Rx's Medication Instructions Recorded ondansetron 4 mg PO Q6H PRN #20 tab 08/19/19 Allergies Allergy/AdvReac Type Severity Reaction Status Date / Time cetirizine [From Zyrtec] AdvReac Mild Verified 08/19/19 11:29 hydrocodone [From Vicodin] AdvReac Nausea Verified 08/19/19 11:29 Review of Systems <LEANNA Frausto - Last Filed: 08/19/19 18:21> Review of Systems Narrative: GENERAL: HPI HEENT: Denies sinus pain, ear pain, sore throat, difficulty swallowing, dizziness. RESPIRATORY: See HPI CARDIOVASCULAR: Denies chest pain, palpitations, orthopnea, edema, GASTROINTESTINAL: See HPI : Denies dysuria, frequency, incontinence, hematuria, urinary retention. MUSCULOSKELETAL: denies weakness, joint pain, or bony pain SKIN: Denies rash, skin lesions, or other NEUROLOGIC: Denies weakness, headache, numbness, change in speech, confusion, seizures, incoordination. PSYCHIATRIC: No concerning psychosocial issues. 12 point review of systems is negative except for those stated above PFSH <LEANNA Frausto - Last Filed: 08/19/19 18:21> Medical History Abnormal Pap smear of cervix (Acute) Forceps delivery (Inactive) Goiter (Chronic) Hiatal hernia (Chronic) Hyperthyroidism (Resolved) Surgical History History of appendectomy (Resolved) S/P LEEP (Acute ~07/12/19) [place] teeth extracted (Resolved) Family History Other Adopted Social History marital status: household members: spouse lives independently: Yes occupational status: employed Smoking Status: Former smoker alcohol intake: former substance use type: marijuana Family History Other Adopted Social History marital status: household members: spouse lives independently: Yes occupational status: employed Smoking Status: Former smoker alcohol intake: former substance use type: marijuana Exam <LEANNA Frausto - Last Filed: 08/19/19 18:21> Narrative Exam Narrative: GENERAL: This is a well-nourished, well-developed patient, lying on stretcher during mass HEAD: Atraumatic. Normocephalic. No temporal or scalp tenderness. EYES: Pupils equal round and reactive. Extraocular motions intact. No scleral icterus. No injection or drainage. ENT: Nose without bleeding, purulent drainage or septal hematoma. Throat without erythema, tonsillar hypertrophy or exudate. Uvula midline. Airway patent. Cobblestoning noted in back of throat. Dry mucous membranes. NECK: Trachea midline. No JVD or lymphadenopathy. Supple, nontender, no meningeal signs. CARDIOVASCULAR: Regular rate and rhythm without murmurs, gallops, or rubs. RESPIRATORY: Clear to auscultation. Breath sounds equal bilaterally. No wheezes, rales, or rhonchi. Dry cough on exam. No accessory muscle use. No retractions. No stridor. GASTROINTESTINAL: Abdomen soft, non-tender, nondistended. No hepato-splenomegaly, or palpable masses. No guarding. Active bowel sounds all 4 quadrants. EXTREMITIES: No clubbing, cyanosis, or edema. No joint tenderness, effusion, or edema noted. BACK: Nontender without deformity or crepitance. No flank tenderness. NEURO: AOx3. SKIN: No rash or erythema. Initial Vital Signs Initial Vital Signs: Vital Signs Temperature 98.4 F 08/19/19 11:29 Pulse Rate 79 08/19/19 11:29 Respiratory Rate 16 08/19/19 11:29 Blood Pressure 135/83 08/19/19 11:29 Pulse Oximetry 99 08/19/19 11:29 <Demario Bonilla DO - Last Filed: 08/19/19 18:22> Initial Vital Signs Initial Vital Signs: Vital Signs Temperature 98.4 F 08/19/19 11:29 Pulse Rate 79 08/19/19 11:29 Respiratory Rate 16 08/19/19 11:29 Blood Pressure 135/83 08/19/19 11:29 Pulse Oximetry 99 08/19/19 11:29 Course <LEANNA Frausto - Last Filed: 08/19/19 18:21> Orders Ordered: ED Orders 08/19/19 11:39 XR chest 2V Stat Amylase Stat Complete Blood Count AUTO DIFF Stat Comprehensive Metabolic Panel Stat Lipase Stat Test Serum,Qual Stat 08/19/19 11:55 Influenza A and B by PCR Rapid Stat 08/19/19 13:23 US abdomen limited Stat 08/19/19 13:39 HCG Quantitative Stat 08/19/19 14:11 Urinalysis and Microscopic Stat Urine Drug Screen, Rapid Stat Discontinued Medications Sodium Chloride (Normal Saline 0.9%) 1,000 mls @ 1,000 mls/hr IV BOLUS ONE Stop: 08/19/19 12:38 Last Infusion: 08/19/19 12:51 Dose: 0 mls/hr Documented by: Admin: 08/19/19 11:51 Dose: 1,000 mls/hr Documented by: LEOONEChiquis Sodium Chloride (Normal Saline 0.9%) 1,000 mls @ 1,000 mls/hr IV BOLUS PRN PRN Reason: Fluid replacement Last Infusion: 08/19/19 15:46 Dose: 0 mls/hr Documented by: Admin: 08/19/19 14:50 Dose: 1,000 mls/hr Documented by: MISSY Ketorolac Tromethamine (Toradol) 30 mg IV NOW ONE Stop: 08/19/19 12:21 Last Admin: 08/19/19 12:25 Dose: 30 mg Documented by: MISSY Lorazepam (Ativan) 1 mg IV NOW ONE Stop: 08/19/19 13:50 Last Admin: 08/19/19 14:04 Dose: 1 mg Documented by: MISSY Metoclopramide HCl (Reglan) 10 mg IV NOW ONE Stop: 08/19/19 12:54 Last Admin: 08/19/19 13:12 Dose: 10 mg Documented by: MISSY Ondansetron HCl (Zofran) 4 mg IV NOW ONE Stop: 08/19/19 11:40 Last Admin: 08/19/19 11:50 Dose: 4 mg Documented by: BELL Ondansetron HCl (Zofran) 4 mg IV NOW ONE Stop: 08/19/19 12:54 Last Admin: 08/19/19 17:02 Dose: Not Given Documented by: MISSY Pantoprazole Sodium (Protonix) 40 mg IV NOW ONE Stop: 08/19/19 12:21 Last Admin: 08/19/19 12:25 Dose: 40 mg Documented by: MISSY Vital Signs Vital signs: Vital Signs - 8 hr 08/19/19 11:29 08/19/19 16:56 Temperature 98.4 F Pulse Rate 79 62 Respiratory Rate 16 14 Blood Pressure 135/83 Blood Pressure [Left Arm] 139/66 Pulse Oximetry 99 100 <Demario Bonilla, - Last Filed: 08/19/19 18:22> Orders Ordered: ED Orders 08/19/19 11:39 XR chest 2V Stat Amylase Stat Complete Blood Count AUTO DIFF Stat Comprehensive Metabolic Panel Stat Lipase Stat Test Serum,Qual Stat 08/19/19 11:55 Influenza A and B by PCR Rapid Stat 08/19/19 13:23 US abdomen limited Stat 08/19/19 13:39 HCG Quantitative Stat 08/19/19 14:11 Urinalysis and Microscopic Stat Urine Drug Screen, Rapid Stat Discontinued Medications Sodium Chloride (Normal Saline 0.9%) 1,000 mls @ 1,000 mls/hr IV BOLUS ONE Stop: 08/19/19 12:38 Last Infusion: 08/19/19 12:51 Dose: 0 mls/hr Documented by: Admin: 08/19/19 11:51 Dose: 1,000 mls/hr Documented by: BELL Sodium Chloride (Normal Saline 0.9%) 1,000 mls @ 1,000 mls/hr IV BOLUS PRN PRN Reason: Fluid replacement Last Infusion: 08/19/19 15:46 Dose: 0 mls/hr Documented by: Admin: 08/19/19 14:50 Dose: 1,000 mls/hr Documented by: MISSY Ketorolac Tromethamine (Toradol) 30 mg IV NOW ONE Stop: 08/19/19 12:21 Last Admin: 08/19/19 12:25 Dose: 30 mg Documented by: MISSY Lorazepam (Ativan) 1 mg IV NOW ONE Stop: 08/19/19 13:50 Last Admin: 08/19/19 14:04 Dose: 1 mg Documented by: MISSY Metoclopramide HCl (Reglan) 10 mg IV NOW ONE Stop: 08/19/19 12:54 Last Admin: 08/19/19 13:12 Dose: 10 mg Documented by: MISSY Ondansetron HCl (Zofran) 4 mg IV NOW ONE Stop: 08/19/19 11:40 Last Admin: 08/19/19 11:50 Dose: 4 mg Documented by: BELL Ondansetron HCl (Zofran) 4 mg IV NOW ONE Stop: 08/19/19 12:54 Last Admin: 08/19/19 17:02 Dose: Not Given Documented by: MISSY Pantoprazole Sodium (Protonix) 40 mg IV NOW ONE Stop: 08/19/19 12:21 Last Admin: 08/19/19 12:25 Dose: 40 mg Documented by: MISSY Vital Signs Vital signs: Vital Signs - 8 hr 08/19/19 11:29 08/19/19 16:56 Temperature 98.4 F Pulse Rate 79 62 Respiratory Rate 16 14 Blood Pressure 135/83 Blood Pressure [Left Arm] 139/66 Pulse Oximetry 99 100 MDM - Abdominal Pain <LEANNA Frausto - Last Filed: 08/19/19 18:21> Lab Data Result diagrams: 08/19/19 11:39 08/19/19 11:39 Labs: Lab Results 08/19/19 08/19/19 08/19/19 Range/Units 11:39 11:39 11:39 WBC 7.5 (4.5-11.0) X10^3/uL RBC 5.16 (4.0-5.2) X10^6/uL Hgb 13.8 (12.0-16.0) g/dL Hct 41.7 (36-46) % MCV 80.8 (80-100) fL MCH 26.8 (26-34) PG MCHC 33.2 (30-36) % RDW 14.9 H (11.6-14.8) % Plt Count 262 (150-400) X10^3/uL Neut % (Auto) 74.2 (50-75) % Lymph % (Auto) 19.2 L (25-40) % [place] % (Auto) 6.2 (3-14) % Eos % (Auto) 0.1 L (2-4) % Baso % (Auto) 0.3 (0-2) % Neut # (Auto) 5600 (0774-5454) /uL Lymph # (Auto) 1400 (1330-1751) /uL [place] # (Auto) 500 (0-900) /uL Eos # (Auto) 0 (0-450) /uL Baso # (Auto) 0 (0-100) /uL Sodium 142 (137-145) mmol/L Potassium 3.9 (3.4-5.1) mmol/L Chloride 103 (98-107) mmol/L Carbon Dioxide 24 (22-32) mmol/L BUN 9 (7-17) mg/dL Creatinine 0.70 (0.52-1.04) mg/dL Estimated GFR > 60.0 (>60) mL/min BUN/Creatinine Ratio 12.9 (6-22) Glucose 111 H (70-100) mg/dL Calcium 10.3 H (8.4-10.2) mg/dL Total Bilirubin 0.9 (0.2-1.3) mg/dL AST 23 (14-36) IU/L ALT 31 (9-52) IU/L Alkaline Phosphatase 69 (38-126) U/L Total Protein 8.7 H (6.3-8.2) g/dL Albumin 5.1 H (3.5-5.0) g/dL Globulin 3.6 (1.7-4.1) g/dL Albumin/Globulin Ratio 1.4 (1.0-2.8) Amylase 94 (30-110) U/L Lipase 175 (23-300) U/L HCG, Quant mIU/mL Serum , Qual Positive H (Negative) Urine Color Urine Appearance Urine pH (4.5-8.0) Ur Specific [place] (1.000-1.035) Urine Protein (Negative) Urine Glucose (UA) (Negative) g/dL Urine Ketones (NEGATIVE) Urine Occult Blood (Negative) Urine Nitrate (Negative) Urine Bilirubin (NEGATIVE) Urine Urobilinogen (0.2) E.U./dL Ur Leukocyte Esterase (NEGATIVE) Urine RBC (0-5/HPF) Urine WBC (0-5/HPF) Urine Bacteria (None) Urine Mucus (Negative) Ur Culture Indicated? Urine Opiates Screen POC Urine Buprenorphine U Morph 300 ng/mL cutoff (Negative) Ur Oxycodone Screen (Negative) Urine Methadone Screen (Negative) Ur Barbiturates Screen (Negative) U Tricyclic Antidepress (Negative) Ur Phencyclidine Scrn (Negative) Ur Amphetamines Screen (Negative) U Methamphetamines Scrn (Negative) Ur MDMA Scrn (Ecstasy) (Negative) U Benzodiazepines Scrn (Negative) Urine Cocaine Screen (Negative) U Marijuana (THC) Screen (Negative) Influenza A & B (PCR) (Negative) 08/19/19 08/19/19 08/19/19 Range/Units 11:55 13:39 14:11 WBC (4.5-11.0) X10^3/uL RBC (4.0-5.2) X10^6/uL Hgb (12.0-16.0) g/dL Hct (36-46) % MCV (80-100) fL MCH (26-34) PG MCHC (30-36) % RDW (11.6-14.8) % Plt Count (150-400) X10^3/uL Neut % (Auto) (50-75) % Lymph % (Auto) (25-40) % [place] % (Auto) (3-14) % Eos % (Auto) (2-4) % Baso % (Auto) (0-2) % Neut # (Auto) (3651-0566) /uL Lymph # (Auto) (1860-1333) /uL [place] # (Auto) (0-900) /uL Eos # (Auto) (0-450) /uL Baso # (Auto) (0-100) /uL Sodium (137-145) mmol/L Potassium (3.4-5.1) mmol/L Chloride (98-107) mmol/L Carbon Dioxide (22-32) mmol/L BUN (7-17) mg/dL Creatinine (0.52-1.04) mg/dL Estimated GFR (>60) mL/min BUN/Creatinine Ratio (6-22) Glucose (70-100) mg/dL Calcium (8.4-10.2) mg/dL Total Bilirubin (0.2-1.3) mg/dL AST (14-36) IU/L ALT (9-52) IU/L Alkaline Phosphatase (38-126) U/L Total Protein (6.3-8.2) g/dL Albumin (3.5-5.0) g/dL Globulin (1.7-4.1) g/dL Albumin/Globulin Ratio (1.0-2.8) Amylase (30-110) U/L Lipase (23-300) U/L HCG, Quant 272.07 mIU/mL Serum , Qual (Negative) Urine Color Yellow Urine Appearance Clear Urine pH 7.0 (4.5-8.0) Ur Specific [place] 1.015 (1.000-1.035) Urine Protein 2+ H (Negative) Urine Glucose (UA) Negative (Negative) g/dL Urine Ketones 2+ H (NEGATIVE) Urine Occult Blood Trace-intact (Negative) Urine Nitrate Negative (Negative) Urine Bilirubin Negative (NEGATIVE) Urine Urobilinogen 1.0 (0.2) E.U./dL Ur Leukocyte Esterase Negative (NEGATIVE) Urine RBC 1-5/hpf (0-5/HPF) Urine WBC None seen (0-5/HPF) Urine Bacteria None seen (None) Urine Mucus 2+ H (Negative) Ur Culture Indicated? Cult not indicated Urine Opiates Screen POC Urine Buprenorphine U Morph 300 ng/mL cutoff (Negative) Ur Oxycodone Screen (Negative) Urine Methadone Screen (Negative) Ur Barbiturates Screen (Negative) U Tricyclic Antidepress (Negative) Ur Phencyclidine Scrn (Negative) Ur Amphetamines Screen (Negative) U Methamphetamines Scrn (Negative) Ur MDMA Scrn (Ecstasy) (Negative) U Benzodiazepines Scrn (Negative) Urine Cocaine Screen (Negative) U Marijuana (THC) Screen (Negative) Influenza A & B (PCR) Negative (Negative) 08/19/19 Range/Units 14:11 WBC (4.5-11.0) X10^3/uL RBC (4.0-5.2) X10^6/uL Hgb (12.0-16.0) g/dL Hct (36-46) % MCV (80-100) fL MCH (26-34) PG MCHC (30-36) % RDW (11.6-14.8) % Plt Count (150-400) X10^3/uL Neut % (Auto) (50-75) % Lymph % (Auto) (25-40) % [place] % (Auto) (3-14) % Eos % (Auto) (2-4) % Baso % (Auto) (0-2) % Neut # (Auto) (1445-4751) /uL Lymph # (Auto) (5154-7367) /uL [place] # (Auto) (0-900) /uL Eos # (Auto) (0-450) /uL Baso # (Auto) (0-100) /uL Sodium (137-145) mmol/L Potassium (3.4-5.1) mmol/L Chloride (98-107) mmol/L Carbon Dioxide (22-32) mmol/L BUN (7-17) mg/dL Creatinine (0.52-1.04) mg/dL Estimated GFR (>60) mL/min BUN/Creatinine Ratio (6-22) Glucose (70-100) mg/dL Calcium (8.4-10.2) mg/dL Total Bilirubin (0.2-1.3) mg/dL AST (14-36) IU/L ALT (9-52) IU/L Alkaline Phosphatase (38-126) U/L Total Protein (6.3-8.2) g/dL Albumin (3.5-5.0) g/dL Globulin (1.7-4.1) g/dL Albumin/Globulin Ratio (1.0-2.8) Amylase (30-110) U/L Lipase (23-300) U/L HCG, Quant mIU/mL Serum , Qual (Negative) Urine Color Urine Appearance Urine pH (4.5-8.0) Ur Specific [place] (1.000-1.035) Urine Protein (Negative) Urine Glucose (UA) (Negative) g/dL Urine Ketones (NEGATIVE) Urine Occult Blood (Negative) Urine Nitrate (Negative) Urine Bilirubin (NEGATIVE) Urine Urobilinogen (0.2) E.U./dL Ur Leukocyte Esterase (NEGATIVE) Urine RBC (0-5/HPF) Urine WBC (0-5/HPF) Urine Bacteria (None) Urine Mucus (Negative) Ur Culture Indicated? Urine Opiates Screen Not Reportable POC Urine Buprenorphine Not Reportable U Morph 300 ng/mL cutoff Negative (Negative) Ur Oxycodone Screen Negative (Negative) Urine Methadone Screen Negative (Negative) Ur Barbiturates Screen Negative (Negative) U Tricyclic Antidepress Negative (Negative) Ur Phencyclidine Scrn Negative (Negative) Ur Amphetamines Screen Negative (Negative) U Methamphetamines Scrn Negative (Negative) Ur MDMA Scrn (Ecstasy) Negative (Negative) U Benzodiazepines Scrn Negative (Negative) Urine Cocaine Screen Negative (Negative) U Marijuana (THC) Screen Positive H (Negative) Influenza A & B (PCR) (Negative) Imaging Data US - abdomen: Radiologist's impression: [place] [address] Ultrasound Report Signed Patient: Iveth Gutierres [facility]#: [id number] : 1990Acct:[id number] Age/Sex: 29 / FDate of Service: 08/19/19 Loc: ED Accession Number: [id number] Procedure: US abdomen limited Ordering Provider: Carmelita Galeana PROCEDURE: US ABDOMEN LIMITED INDICATIONS: RUQ, EPIGASTRIC PAIN TECHNIQUE: Real-time scanning was performed of the abdominal and retroperitoneal organs, with image documentation. COMPARISON: None. FINDINGS: Liver: Liver is normal in size and homogeneous in echotexture. Gallbladder: There is no gallstone. No gallbladder wall thickening or pericholecystic fluid. No sonographic Mccoy's sign. Biliary ducts: Intrahepatic bile ducts are non-dilated. Extrahepatic bile duct caliber measures 2 mm. Normal is 6-7 mm or less in diameter, or 10 mm or less post-cholecystectomy. Pancreas: Visualized portions of the pancreas are sonographically normal. Miscellaneous: No free abdominal fluid. IMPRESSION: Unremarkable ultrasound examination of right upper quadrant abdomen. Dictated by: Solitario Henry M.D. on 08/19/2019 at 14:03 Approved by: Solitario Henry M.D. on 08/19/2019 at 14:04 Chest x-ray: Radiologist's impression: [address] [address] XRay Report Signed Patient: Iveth Gutierres [facility]#: [id number] : 1990Acct:[id number] Age/Sex: te of Service: 08/19/19 Loc: ED Accession Number: [id number] Procedure: XR chest 2V Ordering Provider: Carmelita Galeana PROCEDURE: XR CHEST 2V INDICATIONS: cough TECHNIQUE: 2 views of the chest were acquired. COMPARISON: [facility], , XR CHEST 2V, 04/03/2019, 18:48. FINDINGS: Surgical changes and devices: None. Lungs and pleura: Lungs are clear. No pleural effusions or pneumothorax. Mediastinum: Mediastinal contours are normal. Heart size is normal. Bones and chest wall: No suspicious bony abnormalities. Soft tissues appear unremarkable. IMPRESSION: Negative chest. No acute cardiopulmonary process is evident. Dictated by: Tai Balderas M.D. on 08/19/2019 at 11:12 Approved by: Tai Balderas M.D. on 08/19/2019 at 11:15 [facility] Narrative Medical decision making narrative: The patient is a 29-year-old female current marijuana smoker presents with a chief complaint of cough, nausea and vomiting. She initially states she is on her menses and cannot be . She states that she has had previous visits to [facility] with nausea and vomiting related to dabbing, but states she has only been smoking marijuana since previous emergency department visit. Exam is initially benign, with her lab work benign with, no leukocytosis. Abdominal ultrasound showed no acute etiology. However test came back positive, which the patient was not aware of. Beta HCG was elevated at 2 7 2. However this is too low to find anything on ultrasound. She was given several IV fluid L, Zofran. She was able to pass a p.o. trial and was discharged on Zofran. I discussed at length follow up with her PCP as well as her OBGYN. This is especially concerning as she lost 30 lb during her 1st trimester of with her previous . She is 9 months at this point time. She was able to pass a p.o. trial, keep down ice and water. I discussed at length coming back to the emergency department for any acute concerns such as inability keep down fluids. No questions or concerns upon discharge. <Demario Bonilla, DO - Last Filed: 08/19/19 18:22> Lab Data Labs: Lab Results 08/19/19 08/19/19 08/19/19 Range/Units 11:39 11:39 11:39 WBC 7.5 (4.5-11.0) X10^3/uL RBC 5.16 (4.0-5.2) X10^6/uL Hgb 13.8 (12.0-16.0) g/dL Hct 41.7 (36-46) % MCV 80.8 (80-100) fL MCH 26.8 (26-34) PG MCHC 33.2 (30-36) % RDW 14.9 H (11.6-14.8) % Plt Count 262 (150-400) X10^3/uL Neut % (Auto) 74.2 (50-75) % Lymph % (Auto) 19.2 L (25-40) % [place] % (Auto) 6.2 (3-14) % Eos % (Auto) 0.1 L (2-4) % Baso % (Auto) 0.3 (0-2) % Neut # (Auto) 5600 (5724-4651) /uL Lymph # (Auto) 1400 (6479-6240) /uL [place] # (Auto) 500 (0-900) /uL Eos # (Auto) 0 (0-450) /uL Baso # (Auto) 0 (0-100) /uL Sodium 142 (137-145) mmol/L Potassium 3.9 (3.4-5.1) mmol/L Chloride 103 (98-107) mmol/L Carbon Dioxide 24 (22-32) mmol/L BUN 9 (7-17) mg/dL Creatinine 0.70 (0.52-1.04) mg/dL Estimated GFR > 60.0 (>60) mL/min BUN/Creatinine Ratio 12.9 (6-22) Glucose 111 H (70-100) mg/dL Calcium 10.3 H (8.4-10.2) mg/dL Total Bilirubin 0.9 (0.2-1.3) mg/dL AST 23 (14-36) IU/L ALT 31 (9-52) IU/L Alkaline Phosphatase 69 (38-126) U/L Total Protein 8.7 H (6.3-8.2) g/dL Albumin 5.1 H (3.5-5.0) g/dL Globulin 3.6 (1.7-4.1) g/dL Albumin/Globulin Ratio 1.4 (1.0-2.8) Amylase 94 (30-110) U/L Lipase 175 (23-300) U/L HCG, Quant mIU/mL Serum , Qual Positive H (Negative) Urine Color Urine Appearance Urine pH (4.5-8.0) Ur Specific [place] (1.000-1.035) Urine Protein (Negative) Urine Glucose (UA) (Negative) g/dL Urine Ketones (NEGATIVE) Urine Occult Blood (Negative) Urine Nitrate (Negative) Urine Bilirubin (NEGATIVE) Urine Urobilinogen (0.2) E.U./dL Ur Leukocyte Esterase (NEGATIVE) Urine RBC (0-5/HPF) Urine WBC (0-5/HPF) Urine Bacteria (None) Urine Mucus (Negative) Ur Culture Indicated? Urine Opiates Screen POC Urine Buprenorphine U Morph 300 ng/mL cutoff (Negative) Ur Oxycodone Screen (Negative) Urine Methadone Screen (Negative) Ur Barbiturates Screen (Negative) U Tricyclic Antidepress (Negative) Ur Phencyclidine Scrn (Negative) Ur Amphetamines Screen (Negative) U Methamphetamines Scrn (Negative) Ur MDMA Scrn (Ecstasy) (Negative) U Benzodiazepines Scrn (Negative) Urine Cocaine Screen (Negative) U Marijuana (THC) Screen (Negative) Influenza A & B (PCR) (Negative) 08/19/19 08/19/19 08/19/19 Range/Units 11:55 13:39 14:11 WBC (4.5-11.0) X10^3/uL RBC (4.0-5.2) X10^6/uL Hgb (12.0-16.0) g/dL Hct (36-46) % MCV (80-100) fL MCH (26-34) PG MCHC (30-36) % RDW (11.6-14.8) % Plt Count (150-400) X10^3/uL Neut % (Auto) (50-75) % Lymph % (Auto) (25-40) % [place] % (Auto) (3-14) % Eos % (Auto) (2-4) % Baso % (Auto) (0-2) % Neut # (Auto) (5585-3469) /uL Lymph # (Auto) (5794-6527) /uL [place] # (Auto) (0-900) /uL Eos # (Auto) (0-450) /uL Baso # (Auto) (0-100) /uL Sodium (137-145) mmol/L Potassium (3.4-5.1) mmol/L Chloride (98-107) mmol/L Carbon Dioxide (22-32) mmol/L BUN (7-17) mg/dL Creatinine (0.52-1.04) mg/dL Estimated GFR (>60) mL/min BUN/Creatinine Ratio (6-22) Glucose (70-100) mg/dL Calcium (8.4-10.2) mg/dL Total Bilirubin (0.2-1.3) mg/dL AST (14-36) IU/L ALT (9-52) IU/L Alkaline Phosphatase (38-126) U/L Total Protein (6.3-8.2) g/dL Albumin (3.5-5.0) g/dL Globulin (1.7-4.1) g/dL Albumin/Globulin Ratio (1.0-2.8) Amylase (30-110) U/L Lipase (23-300) U/L HCG, Quant 272.07 mIU/mL Serum , Qual (Negative) Urine Color Yellow Urine Appearance Clear Urine pH 7.0 (4.5-8.0) Ur Specific [place] 1.015 (1.000-1.035) Urine Protein 2+ H (Negative) Urine Glucose (UA) Negative (Negative) g/dL Urine Ketones 2+ H (NEGATIVE) Urine Occult Blood Trace-intact (Negative) Urine Nitrate Negative (Negative) Urine Bilirubin Negative (NEGATIVE) Urine Urobilinogen 1.0 (0.2) E.U./dL Ur Leukocyte Esterase Negative (NEGATIVE) Urine RBC 1-5/hpf (0-5/HPF) Urine WBC None seen (0-5/HPF) Urine Bacteria None seen (None) Urine Mucus 2+ H (Negative) Ur Culture Indicated? Cult not indicated Urine Opiates Screen POC Urine Buprenorphine U Morph 300 ng/mL cutoff (Negative) Ur Oxycodone Screen (Negative) Urine Methadone Screen (Negative) Ur Barbiturates Screen (Negative) U Tricyclic Antidepress (Negative) Ur Phencyclidine Scrn (Negative) Ur Amphetamines Screen (Negative) U Methamphetamines Scrn (Negative) Ur MDMA Scrn (Ecstasy) (Negative) U Benzodiazepines Scrn (Negative) Urine Cocaine Screen (Negative) U Marijuana (THC) Screen (Negative) Influenza A & B (PCR) Negative (Negative) 08/19/19 Range/Units 14:11 WBC (4.5-11.0) X10^3/uL RBC (4.0-5.2) X10^6/uL Hgb (12.0-16.0) g/dL Hct (36-46) % MCV (80-100) fL MCH (26-34) PG MCHC (30-36) % RDW (11.6-14.8) % Plt Count (150-400) X10^3/uL Neut % (Auto) (50-75) % Lymph % (Auto) (25-40) % [place] % (Auto) (3-14) % Eos % (Auto) (2-4) % Baso % (Auto) (0-2) % Neut # (Auto) (7710-2537) /uL Lymph # (Auto) (9735-1668) /uL Independence # (Auto) (0-900) /uL Eos # (Auto) (0-450) /uL Baso # (Auto) (0-100) /uL Sodium (137-145) mmol/L Potassium (3.4-5.1) mmol/L Chloride (98-107) mmol/L Carbon Dioxide (22-32) mmol/L BUN (7-17) mg/dL Creatinine (0.52-1.04) mg/dL Estimated GFR (>60) mL/min BUN/Creatinine Ratio (6-22) Glucose (70-100) mg/dL Calcium (8.4-10.2) mg/dL Total Bilirubin (0.2-1.3) mg/dL AST (14-36) IU/L ALT (9-52) IU/L Alkaline Phosphatase (38-126) U/L Total Protein (6.3-8.2) g/dL Albumin (3.5-5.0) g/dL Globulin (1.7-4.1) g/dL Albumin/Globulin Ratio (1.0-2.8) Amylase (30-110) U/L Lipase (23-300) U/L HCG, Quant mIU/mL Serum , Qual (Negative) Urine Color Urine Appearance Urine pH (4.5-8.0) Ur Specific [place] (1.000-1.035) Urine Protein (Negative) Urine Glucose (UA) (Negative) g/dL Urine Ketones (NEGATIVE) Urine Occult Blood (Negative) Urine Nitrate (Negative) Urine Bilirubin (NEGATIVE) Urine Urobilinogen (0.2) E.U./dL Ur Leukocyte Esterase (NEGATIVE) Urine RBC (0-5/HPF) Urine WBC (0-5/HPF) Urine Bacteria (None) Urine Mucus (Negative) Ur Culture Indicated? Urine Opiates Screen Not Reportable POC Urine Buprenorphine Not Reportable U Morph 300 ng/mL cutoff Negative (Negative) Ur Oxycodone Screen Negative (Negative) Urine Methadone Screen Negative (Negative) Ur Barbiturates Screen Negative (Negative) U Tricyclic Antidepress Negative (Negative) Ur Phencyclidine Scrn Negative (Negative) Ur Amphetamines Screen Negative (Negative) U Methamphetamines Scrn Negative (Negative) Ur MDMA Scrn (Ecstasy) Negative (Negative) U Benzodiazepines Scrn Negative (Negative) Urine Cocaine Screen Negative (Negative) U Marijuana (THC) Screen Positive H (Negative) Influenza A & B (PCR) (Negative) Discharge Plan Departure Patient Disposition: Home Clinical Impression: Acute dehydration Qualifiers: Weeks of gestation: less than 8 weeks Qualified Code(s): Z3A.01 - Less than 8 weeks gestation of Nausea & vomiting Qualifiers: Vomiting type: unspecified Vomiting Intractability: non-intractable Qualified Code(s): R11.2 - Nausea with vomiting, unspecified Discharge Date/Time: 08/19/19 17:14 Instructions: DI for Dehydration -- Adult, DI for Nausea -- Adult, DI for Vomiting -- Adult, DI for Abdominal Pain -- Early , Nausea and Vomiting-Adult Activity Restrictions/Additional Instructions: Today we did lab work, urine tests and an ultrasound. The ultrasound of your right upper quadrant had no acute findings. However we did find that you are today. Please follow up with primary care provider and OBGYN. I have given you a prescription of Zofran for nausea. Please come to the emergency department for any acute concerns such as inability keep down fluids. Prescriptions: New ondansetron 4 mg tablet,disintegrating 4 mg PO Q6H PRN (Reason: nausea and vomiting) Qty: 20 RF: 0 Referrals: Inez Morocho DO [Primary Care Provider] - <Demario Bonilla DO - Last Filed: 08/19/19 18:22> Sign Out Provider Sign Out Attestation: I was available for consultation during this patient's emergency department encounter
[2019-08-19 11:49] LABS: Add Manual Diff / Slide Review NO; Basophils Absolute Auto 0 /uL (0-100); Basophils Percent Auto 0.3 % (0-2); Eosinophils Absolute Auto 0 /uL (0-450); Eosinophils Percent Auto 0.1 % (2-4); Hematocrit 41.7 % (36-46); Hemoglobin 13.8 g/dL (12.0-16.0); Lymphocytes Absolute Auto 1400 /uL (1100-4500); Lymphocytes Percent Auto 19.2 % (25-40); Mean Corpuscular HGB Conc 33.2 % (30-36); Mean Corpuscular Hemoglobin 26.8 PG (26-34); Mean Corpuscular Volume 80.8 fL (80-100); Monocytes Absolute Auto 500 /uL (0-900); Monocytes Percent Auto 6.2 % (3-14); Neutrophils Absolute Auto 5600 /uL (1500-7000); Neutrophils Percent Auto 74.2 % (50-75); Platelet Count 262 X10^3/uL (150-400); Red Blood Cell Count 5.16 X10^6/uL (4.0-5.2); Red Cell Distribution Width 14.9 % (11.6-14.8); White Blood Cell Count 7.5 X10^3/uL (4.5-11.0)
[2019-08-19] MEDS: ONDANSETRON 4 MG/2 ML INJ IV (11:50)
[2019-08-19] MEDS: SODIUM CHLORIDE 0.9% 1,000 ML 1000 ML IV ×2 (11:51→14:50)
[2019-08-19 11:58] LABS: Alanine Aminotransferase 31 IU/L (9-52); Albumin 5.1 g/dL (3.5-5.0); Albumin Globulin Ratio 1.4 (1.0-2.8); Alkaline Phosphatase 69 U/L (38-126); Amylase 94 U/L (30-110); Aspartate Aminotransferase 23 IU/L (14-36); BUN Creatinine Ratio 12.9 (6-22); Bilirubin Total 0.9 mg/dL (0.2-1.3); Blood Urea Nitrogen 9 mg/dL (7-17); Calcium 10.3 mg/dL (8.4-10.2); Carbon Dioxide 24 mmol/L (22-32); Chloride 103 mmol/L (98-107); Estimated Glomerular Filt Rate > 60.0 mL/min (>60); Globulin 3.6 g/dL (1.7-4.1); Glucose 111 mg/dL (70-100); HEMOLYSIS < 15 (0-50); Lipase 175 U/L (23-300); Potassium 3.9 mmol/L (3.4-5.1); Sodium 142 mmol/L (137-145); Total Protein 8.7 g/dL (6.3-8.2)
[2019-08-19 12:24] LABS: Influenza A and B by PCR Rapid Negative (Negative)
[2019-08-19] MEDS: PANTOPRAZOLE 40 MG VIAL IV (12:25)
[2019-08-19] MEDS: KETOROLAC 60 MG/2 ML VIAL 30 MG IV (12:25)
[2019-08-19] MEDS: METOCLOPRAMIDE 10 MG/2 ML INJ IV (13:12)
--- NOTE | 2019-08-19 13:23 | DI.US.S_ITS ---
PROCEDURE: US ABDOMEN LIMITED INDICATIONS: RUQ, EPIGASTRIC PAIN TECHNIQUE: Real-time scanning was performed of the abdominal and retroperitoneal organs, with image documentation. COMPARISON: None. FINDINGS: Liver: Liver is normal in size and homogeneous in echotexture. Gallbladder: There is no gallstone. No gallbladder wall thickening or pericholecystic fluid. No sonographic Mccoy's sign. Biliary ducts: Intrahepatic bile ducts are non-dilated. Extrahepatic bile duct caliber measures 2 mm. Normal is 6-7 mm or less in diameter, or 10 mm or less post-cholecystectomy. Pancreas: Visualized portions of the pancreas are sonographically normal. Miscellaneous: No free abdominal fluid. IMPRESSION: Unremarkable ultrasound examination of right upper quadrant abdomen. Dictated by: Solitario Henry M.D. on 08/19/2019 at 14:03 Approved by: Solitario Henry M.D. on 08/19/2019 at 14:04
[2019-08-19] MEDS: LORazepam 2 MG/ML INJ 1 MG IV (14:04)
[2019-08-19 14:08] LABS: Pregnancy Test Serum,Qual Positive (Negative)
[2019-08-19 14:13] LABS: Bacteria Urine None Seen; WBC Urine None Seen (0-5/HPF)
[2019-08-19 14:14] LABS: Appearance Urine UA CLEAR; Bilirubin Urine UA NEGATIVE (NEGATIVE); Color Urine UA YELLOW; Glucose Urine UA NEGATIVE (Negative); Ketones Urine UA 2+ (NEGATIVE); Leukocyte Esterase Urine UA NEGATIVE (NEGATIVE); Nitrite Urine UA NEGATIVE (Negative); Occult Blood Urine UA TRACE-INTACT (Negative); Protein Urine UA 2+ (Negative); Specific Gravity Urine UA 1.015 (1.000-1.035)
[2019-08-19 14:19] LABS: UR Morphine/Opiate cutoff 300 Negative (Negative); Urine Cocaine Negative (Negative); Urine Tetrahydrocannabinol Positive (Negative)
[2019-08-19 14:20] LABS: Urine Amphetamines Negative (Negative); Urine Barbiturates Negative (Negative); Urine Benzodiazepines Negative (Negative); Urine MDMA Negative (Negative); Urine Methadone Negative (Negative); Urine Methamphetamines Negative (Negative); Urine Oxycodone Negative (Negative); Urine Phencyclidine Negative (Negative); Urine Tricyclic Antidepressant Negative (Negative)
[2019-08-19 14:24] LABS: Culture Indicated Urine Cult Not Indicated; Mucus Urine 2+ (Negative); RBC Urine 1-5/HPF (0-5/HPF)
[2019-08-19 14:46] LABS: HCG Quantitative /Beta subunit 272.07 mIU/mL
--- NOTE | 2019-08-19 15:45 | PC.NURSE ---
provided patient with Ice chips.
[2019-08-19 16:56] VITALS: BP 139/66; PULSE 62; RESP 14; O2SAT 100
== END 2019-08-19 17:14 | disposition home or self-care (01) ==
PROVIDERS: Emergency Provider Nurse Practitioner Family; PCP Family Medicine
DX: O26.891 Other specified pregnancy related conditions, first trimester (principal); E86.0 Dehydration; R11.2 Nausea with vomiting, unspecified; R10.11 Right upper quadrant pain; Z3A.01 Less than 8 weeks gestation of pregnancy
CPT/HCPCS: 36415; 71046; 76705; 80053; 80305; 81001; 82150; 83690; 84702; 84703; 85025; 87400; 87502; 96361; 96374; 96375; 99283; 99284; C9113; J1885; J2060; J2405; J2765

== ENCOUNTER → 2019-09-03 11:42 | Outpatient (CLI) | payer OTHER, MEDICAID, SELFPAY ==
--- NOTE | 2019-09-03 11:43 | DI.US.S_ITS ---
PROCEDURE: US OB <= 14 WEEKS FETUS INDICATIONS: INITIAL DATING AND VIABILITY OUTSIDE/PRIOR DATING DATA: Last menstrual period (LMP): 07/19/19. LMP-based estimated date of delivery (EDILIA): 04/24/20. First dating scan (date and location): This study, 09/03/19. Estimated date of delivery (EDILIA) from first dating scan: 04/25/20, plus or -5 days.. TECHNIQUE: Real-time scanning was performed of the fetus and maternal pelvic organs, with image documentation. Endovaginal scanning was also performed to better visualize the fetus and maternal ovaries. COMPARISON: [facility], OB <= 14 WEEKS FETUS, 03/25/2018, 10:49. FINDINGS: Embryo: [place]-rump length 6 mm correlates with a gestational age of 6 weeks 3 days and heart rate of 113 beats per minute was observed. Measurement variability in dating: +/- 4 weeks by LMP, +/- 7 days by mean sac diameter (use before 6 weeks gestation if crown-rump length not able to be measured), +/- 5 days by crown-rump length (up to 8 weeks 6 days gestation), +/- 7 days by crown-rump length (up to 13 weeks 6 days gestation). Maternal organs: Ovaries normal considering gestational status. Limited images through the kidneys demonstrate no hydronephrosis. IMPRESSION: Single living intrauterine gestation currently measuring 6 weeks 3 days in gestational age and with delivery date projected to be centered on 04/25/20, plus or -5 days. Followup anatomic survey at 20 weeks gestation is recommended. Dictated by: Eulogio Lock M.D. on 09/03/2019 at 15:15 Approved by: Eulogio Lock M.D. on 09/03/2019 at 15:17
== END ==
PROVIDERS: PCP Family Medicine; Visit Provider Family Medicine
DX: Z34.81 Encounter for supervision of other normal pregnancy, first trimester (principal); Z3A.01 Less than 8 weeks gestation of pregnancy
CPT/HCPCS: 76801; 76817

== ENCOUNTER → 2019-09-17 15:22 | Outpatient (CLI) | payer OTHER, MEDICAID, SELFPAY ==
[2019-09-17 15:43] LABS: Add Manual Diff / Slide Review NO; Basophils Absolute Auto 0 /uL (0-100); Basophils Percent Auto 0.3 % (0-2); Eosinophils Absolute Auto 0 /uL (0-450); Eosinophils Percent Auto 0.4 % (2-4); Hematocrit 37.8 % (36-46); Hemoglobin 12.5 g/dL (12.0-16.0); Lymphocytes Absolute Auto 2000 /uL (1100-4500); Lymphocytes Percent Auto 16.5 % (25-40); Mean Corpuscular Hemoglobin 27.5 PG (26-34); Mean Corpuscular Volume 83.2 fL (80-100); Monocytes Absolute Auto 700 /uL (0-900); Monocytes Percent Auto 5.9 % (3-14); Neutrophils Absolute Auto 9100 /uL (1500-7000); Neutrophils Percent Auto 76.9 % (50-75); Platelet Count 259 X10^3/uL (150-400); Red Blood Cell Count 4.54 X10^6/uL (4.0-5.2); Red Cell Distribution Width 15.8 % (11.6-14.8); White Blood Cell Count 11.8 X10^3/uL (4.5-11.0)
[2019-09-17 15:46] LABS: Appearance Urine UA SL CLOUDY; Bilirubin Urine UA NEGATIVE (NEGATIVE); Color Urine UA YELLOW; Glucose Urine UA NEGATIVE (Negative); Ketones Urine UA NEGATIVE (NEGATIVE); Leukocyte Esterase Urine UA NEGATIVE (NEGATIVE); Nitrite Urine UA NEGATIVE (Negative); Occult Blood Urine UA NEGATIVE (Negative); Protein Urine UA TRACE (Negative); Specific Gravity Urine UA 1.015 (1.000-1.035); Urobilinogen Urine UA 0.2 E.U./dL (0.2)
[2019-09-17 15:47] LABS: pH Urine UA 6.5 (4.5-8.0)
[2019-09-17 16:43] LABS: Hepatitis B Surface Antigen NEGATIVE s/c (NEGATIVE); Rubella Antibody IgG 20.5 IU/mL (>15)
[2019-09-17 17:02] LABS: HIV 1 & 2 Ab/Ag 4th Gen Combo NEGATIVE (NEGATIVE); Hep C Virus Ab w/Reflex Quant NEGATIVE s/c (NEGATIVE)
[2019-09-20 22:05] LABS: RPR Screen Nonreactive (Nonreactive)
[2019-09-22 08:55] LABS: HSV 2 IGG AB 9.11 index (< 0.90)
== END ==
PROVIDERS: PCP Family Medicine; Visit Provider Family Medicine
DX: Z34.91 Encounter for supervision of normal pregnancy, unspecified, first trimester (principal); Z3A.08 8 weeks gestation of pregnancy
CPT/HCPCS: 36415; 80055; 81003; 86695; 86696; 86787; 86803; 86850; 86900; 86901; 87086; 87389

== ENCOUNTER → 2019-11-11 14:57 | Oncology outpatient (ONC) | payer OTHER, MEDICAID, SELFPAY ==
[2019-11-11] MEDS: SODIUM CHLORIDE 0.9% 1,000 ML 1000 ML IV (15:30)
== END ==
LOC: ONC 14:59
PROVIDERS: PCP Family Medicine; Visit Provider Family Medicine
DX: O21.0 Mild hyperemesis gravidarum (principal)
CPT/HCPCS: 96360

== ENCOUNTER → 2019-12-03 15:04 | Outpatient (CLI) | payer OTHER, MEDICAID, SELFPAY ==
--- NOTE | 2019-12-03 15:05 | DI.US.S_ITS ---
PROCEDURE: OB >= 14 WEEKS FETUS INDICATIONS: ANATOMY SCREENING OUTSIDE/PRIOR DATING DATA: Last menstrual period (LMP): 07/19/19. LMP-based estimated date of delivery (EDILIA): 04/24/20. First dating scan (date and location): This study, 09/03/19. Estimated date of delivery (EDILIA) from first dating scan: 04/25/20, plus or -5 days. TECHNIQUE: Real-time scanning was performed of the fetus, with image documentation and biometric measurements. COMPARISON: [facility], OB <= 14 WEEKS FETUS, 09/03/2019, 12:27. [facility], OB >= 14 WEEKS FETUS, 06/10/2018, 9:34. FINDINGS: General: A single living intrauterine gestation is present. Presentation: Vertex. Placenta: Placental position is anterior, without previa. Amniotic fluid index: 14.4 cm, normal range is 5-24 cm. heart rate: 152 beats per minute. Maternal cervical canal: 3.2 cm long. Normal lower limit is 2.5 cm. biometrics: Biparietal diameter: 20 weeks 5 days Head circumference: 20 weeks 3 days Abdominal circumference: 21 weeks 4 days Femur length: 19 weeks 4 days Estimated gestational age from initial scan: 19 weeks 3 days Composite gestational age from present scan: 20 weeks 3 days Estimated weight and percentile: 360 g; 97 percentile Measurement variability for biometric dating: +/- 7 days from 14 weeks to 15 weeks 6 days gestation, +/- 10 days from 16 weeks to 21 weeks 6 days gestation, +/- 2 weeks from 22 weeks to 27 weeks 6 days gestation, +/- 3 weeks for 28 weeks gestation or later. weight reference: 4500 g or EFW >90/95% is considered macrosomia or large for gestational age. EFW <10% is small for gestational age. EFW 5% or less is considered intra-uterine growth restriction. Anatomic survey: Neuro: Ventricles are non-dilated at less than 10 mm. Cisterna magna is normal at 3-11 mm. Cerebellum is normal in size and morphology. Nuchal skin fold: Normal at less than 6 mm between 14-21 weeks gestational age. Face: Nose and lips, facial profile are normal. Spine: No evidence for spina bifida. Heart: 4-chambered heart is present, with normal ventricular outflow tracts. Diaphragm: Diaphragm is intact. Stomach: Left-sided stomach is present. Kidneys: No hydronephrosis. Normal is less than 5 mm in 2nd trimester, less than 7 mm in 3rd trimester. Cord: 3-vessel cord has orthotopic insertion. Bladder: Normal in size. Extremities: All 4 extremities identified. IMPRESSION: 1. Single living IUP redemonstrated and interval growth is greater than expected with estimated weight 97th percentile. Recommend attention on followup. 2. Normal anatomic survey. Dictated by: Adán Perry [facility] Interpreted: Ki Bermudez MD on 12/03/2019 at 16:49 Approved by: Ki Bermudez M.D. on 12/07/2019 at 8:15
== END ==
PROVIDERS: PCP Family Medicine; Visit Provider Family Medicine
DX: Z36.89 Encounter for other specified antenatal screening (principal); Z3A.20 20 weeks gestation of pregnancy
CPT/HCPCS: 76811

== ENCOUNTER → 2020-01-28 14:43 | Outpatient (CLI) | payer OTHER, MEDICAID, SELFPAY ==
[2020-01-28 18:06] LABS: Hematocrit 33.2 % (36-46); Hemoglobin 11.3 g/dL (12.0-16.0)
[2020-01-28 18:10] LABS: GTT (PREG) 1 Hour PP 50gm Dose 102 mg/dL (76-139)
== END ==
PROVIDERS: PCP Family Medicine; Referring Provider Family Medicine; Visit Provider Family Medicine
DX: Z34.90 Encounter for supervision of normal pregnancy, unspecified, unspecified trimester (principal); Z3A.26 26 weeks gestation of pregnancy
CPT/HCPCS: 36415; 82950; 85014; 85018

== ENCOUNTER → 2020-03-21 14:24 | Outpatient (CLI) | payer OTHER, MEDICAID, SELFPAY ==
--- NOTE | 2020-03-21 14:26 | DI.US.S_ITS ---
PROCEDURE: US OB FOLLOW UP INDICATIONS: EFW OUTSIDE/PRIOR DATING DATA: Last menstrual period (LMP): 07/19/19. LMP-based estimated date of delivery (EDILIA): 04/24/20. First dating scan (date and location): 09/03/19. Estimated date of delivery (EDILIA) from first dating scan: 04/25/20. TECHNIQUE: Real-time scanning was performed of the fetus, with image documentation. Endovaginal scanning: Not needed COMPARISON: None. FINDINGS: A single living intrauterine gestation is present. Presentation: Vertex. Placenta: Placental position is anterior, without previa. Amniotic fluid index: 13.6 cm, normal range is 5-24 cm. heart rate: 120 beats per minute. shaped funneling.>> Estimated gestational age from initial scan: 35 weeks 0 days. The growth parameters yield a composite gestational age today of 36 weeks 5 days and there has been appropriate interval growth with the estimated current weight of 3033 g, at the 91st percentile. IMPRESSION: Appropriate interval growth, estimated current weight is 3033 g. Delivery date is projected to be centered on 04/25/20, plus or -5 days, from first OB ultrasound. Dictated by: Eulogio Lock M.D. on 03/21/2020 at 15:06 Approved by: Eulogio Lock M.D. on 03/21/2020 at 15:09
== END ==
PROVIDERS: PCP Family Medicine; Referring Provider Family Medicine; Visit Provider Family Medicine
DX: Z36.2 Encounter for other antenatal screening follow-up (principal); Z3A.35 35 weeks gestation of pregnancy
CPT/HCPCS: 76816

== ENCOUNTER → 2020-03-27 14:17 | Outpatient (CLI) | payer OTHER, MEDICAID, SELFPAY ==
[2020-03-28 11:49] LABS: Strep Grp B PCR NEG for Grp B Strep
== END ==
PROVIDERS: PCP Family Medicine; Visit Provider Family Medicine
DX: Z34.90 Encounter for supervision of normal pregnancy, unspecified, unspecified trimester (principal); Z3A.36 36 weeks gestation of pregnancy
CPT/HCPCS: 87653

== ENCOUNTER 2020-04-11 12:19 | Outpatient (CLI) | payer OTHER, MEDICAID, SELFPAY ==
[2020-04-11] MEDS: LACTATED RINGERS 1,000 ML 1000 ML IV (12:30)
--- NOTE | 2020-04-11 13:07 | PM.OBTRLD ---
Visit Information Visit Information Date of evaluation: 04/11/20 Primary OB Provider: Inez Morocho Reason for Evaluation: Yes non-stress test non-stress test reason: other (vomiting, dehydration) Vital Signs Vital Signs: T 36.4 BP 133/80 P 62 PFSH Social History marital status: household members: spouse lives independently: Yes occupational status: employed Smoking Status: Former smoker alcohol intake: former substance use type: marijuana Evaluation Evaluation Baseline heart rate: 130 Variability: Moderate (11-25) monitor accelerations: Present monitor decelerations: Absent Uterine Contraction Intensity: Mild Category of Tracing: I Diagnosis, Plan/Disposition Final Diagnosis (1) 38 weeks gestation of : Current Visit: Yes Status: Acute (2) Vomiting: Current Visit: Yes Status: Acute Plan/Disposition Plan: 30 year old at 38 weeks with two days of vomiting, unable to keep more than sips of water down. Received 1 L LR and zofran in the center with improvement in symptoms. NST reactive. F/u in one week for induction as scheduled or soon if needed. OB Disposition: home
[2020-04-11] MEDS: ONDANSETRON 4 MG/2 ML INJ IV (13:20)
== END 2020-04-11 13:45 | disposition home or self-care (01) ==
LOC: OB 04-12 12:38
PROVIDERS: PCP Family Medicine; Referring Provider Family Medicine; Visit Provider Family Medicine
DX: O21.9 Vomiting of pregnancy, unspecified (principal); R63.4 Abnormal weight loss; Z3A.38 38 weeks gestation of pregnancy
CPT/HCPCS: 59025; 96360; G0378; G0379; J2405

== ENCOUNTER → 2020-04-15 11:04 | Outpatient (CLI) | payer OTHER, MEDICAID, SELFPAY ==
[2020-04-16 08:20] LABS: COVID19 Sendout Not Detected (Not Detect)
== END ==
PROVIDERS: PCP Family Medicine; Visit Provider Physician Assistant
DX: Z34.90 Encounter for supervision of normal pregnancy, unspecified, unspecified trimester (principal)
CPT/HCPCS: 87635

== ENCOUNTER 2020-04-18 05:47 | Inpatient (IN) | payer OTHER, MEDICAID, SELFPAY ==
[2020-04-18] MEDS: LACTATED RINGERS 1,000 ML 100 ML IV ×2 (06:05→10:10)
--- NOTE | 2020-04-18 06:37 | PM.OBHP.1 ---
OB HPI Date/Time Date of admission: 04/18/20 Date Patient Seen: 04/18/20 Time Patient Seen: 06:30 History of Present Condition Chief complaint: Labor & Delivery : 2 Para: 1 Estimated Date of Delivery: 04/24/20 Estimated Gestational Age (weeks): 39w1d Narrative: Iveth Gutierres is a 30 year old at 39 weeks and 1 day gestation. She was scheduled for induction (for h/o forceps, macrosomia, maternal discomfort) today however came to the center in active labor. complicated by hyperemesis with minimal weight gain however concern for macrosomia by ultrasound. Estimated weight was at the ninety-first percentile at 35 weeks. Patient has been taking prophylactic acyclovir due to a history HSV. History of Present care: good care, initiated at week # (8) and pounds weight gain (-3) Dating criteria: LMP confirmed by 1st trimester US Ultrasounds: normal mid trimester US (Normal anatomy, estimated weight at the 97th%) Obstetrical complications: hyperemesis Medical complications: none Preadmission Labs Blood type: O (+) positive -: Antibody screen: negative, GBS status: negative, HBsAG: negative, HIV: negative, HSV 1: positive, HSV 2: positive and RPR/VDLR: negative -: Rubella: immune and Varicella: immune HCT: 37.8 HCAB: negative PAP: Abnormal (LEEP 06/2019 with MARTIN 1/MARTIN 2 with negative margins) Quad screen: Normal Urine: Negative 1 hr GTT: 102 Prior (ies) History: 11/04/18 forceps assisted vaginal delivery of 40 weeks, 9 lb male Evaluation Evaluation Baseline heart rate: 140 Variability: Moderate (11-25) monitor accelerations: Absent monitor decelerations: Early Contraction Frequency (minutes): 2 Category of Tracing: II Cervical dilation (cm): 9 Cervical effacement (%): 100 station: -1 [facility] Medical History Abnormal Pap smear of cervix (Acute) Body piercing (Acute) Borderline hypertension (Acute) Forceps delivery (Inactive) Goiter (Chronic) Hiatal hernia (Chronic) HPV (human papilloma virus) infection (Acute) HSV infection (Acute) Hyperemesis gravidarum (Acute) Hyperthyroidism (Resolved) Pneumonia (Acute) Seasonal allergies (Acute) Ulcer (Acute) Surgical History History of appendectomy (Resolved) S/P LEEP (Acute ~07/12/19) Mather teeth extracted (Resolved) Family History Mother Endometrial cancer Other Adopted Social History marital status: household members: spouse lives independently: Yes occupational status: employed Smoking Status: Current some day smoker alcohol intake: former substance use type: marijuana Meds Home Medications and Allergies Home Medications Medication Instructions Recorded Confirmed Type ondansetron 4 mg PO Q6H PRN #20 tab 08/19/19 09/17/19 Rx prenat.vits,janeth,[id number] 1 tab PO DAILY 09/13/19 09/17/19 History lorazepam 0.5 mg tablet 0.5 mg PO DAILY PRN #20 tab 11/12/19 11/12/19 Rx metoclopramide HCl 10 mg tablet 10 mg PO Q6H PRN #30 tab 11/12/19 11/12/19 Rx acyclovir 400 mg tablet 400 mg PO TID #90 tab 03/27/20 03/27/20 Rx Allergies Allergy/AdvReac Type Severity Reaction Status Date / Time cetirizine [From Zyrtec] AdvReac Mild Verified 09/17/19 14:42 hydrocodone [From Vicodin] AdvReac Nausea Verified 09/17/19 14:42 Exam Vital Signs (past 8 hours): Temperature 36.0? Blood pressure 117/69 Heart rate 83 Const General: healthy appearing and comfortable [facility] Head: normal to inspection Ears: hearing grossly normal bilaterally Nose: external nose normal Face and sinus: normal facial exam Mouth: oral mucosae normal Eyes General: appearance normal, both eyes and all related structures Neck Neck: normal visual inspection Resp Effort & Inspection: normal respiratory effort Auscultation: clear to auscultation bilaterally Cardio Rate: regular rate Rhythm: regular rhythm Heart Sounds: no murmurs GI Other: Gravid External Female Exam: external appearance normal Manual OB Exam: dilated 9, effaced fully and station -1 Presentation: vertex Estimated Weight (lbs): 8 Back/Spine/Pelvis Back: normal to inspection Skin General: no rashes or lesions noted Extrem General: normal to inspection and no pedal edema Objective Labs Result Diagrams: 04/18/20 06:00 Assessment and Plan Assessment and Plan Assessment and Plan narrative: 30-year-old 39 weeks and 1 day gestation in active labor. She was scheduled for induction today for history of macrosomia, forceps delivery and maternal discomfort but was 9 cm upon arrival. complicated by hyperemesis as well as history of HSV on prophylactic acyclovir the last few weeks the . COVID-19 testing negative. Plan Admit for labor, patient comfortable with epidural now Anticipate vaginal delivery
[2020-04-18 06:39] LABS: Add Manual Diff / Slide Review NO; Basophils Absolute Auto 0 /uL (0-100); Basophils Percent Auto 0.2 % (0-2); Eosinophils Absolute Auto 0 /uL (0-450); Eosinophils Percent Auto 0.1 % (2-4); Hematocrit 37.5 % (36-46); Hemoglobin 12.7 g/dL (12.0-16.0); Lymphocytes Absolute Auto 1200 /uL (1100-4500); Mean Corpuscular HGB Conc 33.9 % (30-36); Mean Corpuscular Volume 85.5 fL (80-100); Monocytes Absolute Auto 700 /uL (0-900); Monocytes Percent Auto 4.7 % (3-14); Neutrophils Absolute Auto 13300 /uL (1500-7000); Platelet Count 212 X10^3/uL (150-400); Red Blood Cell Count 4.39 X10^6/uL (4.0-5.2); Red Cell Distribution Width 14.4 % (11.6-14.8); White Blood Cell Count 15.3 X10^3/uL (4.5-11.0)
--- NOTE | 2020-04-18 08:20 | PM.OBPRVD ---
Labor & Delivery Delivery date: 04/18/20 Delivery augmentation: rupture of membranes Delivery monitor: external FHT Route of delivery: L&D Laceration Description: None Estimated blood loss (mL): 200 Anesthesia type: Epidural Narrative: Patient is a 30-year-old [id number] at 39 weeks 2 days who gave on 04/18/20 at 7:52 a.m.. EDILIA: 04/24/20 Hospital problems: 39 weeks STAGE I: Labor Regular contractions began at approximately 9:00 p.m. on 04/17/20. Upon arrival to the center patient was found to be 9 cm with a bulging bag. She received an epidural with adequate pain control. Artificial rupture of membranes occurred at 7:07 a.m. with clear fluid. heart tones were category 1 throughout stage I. She was complete at 7:32 a.m.. Stage I duration 10 hours and 32 minutes. STAGE II: Delivery Patient pushed for 17 minutes and went on to deliver a vigorous male at 7:49 a.m.. Infant was vertex and ERWIN. He was immediately placed on mother's abdomen. Cord was clamped and cut after 2 minute delay. Apgars were 9 and 9. No resuscitation of the required. STAGE III: Placenta/Cord Placenta delivered at 7:55 a.m. after active management and appeared intact with a three-vessel cord. Pitocin given after delivery of placenta. Fundus was firm after delivery. There were no lacerations. Hemostasis assured. EBL: 200 mL. Needle and sponge counts were correct. The vagina was inspected and no items were left in situ. Patient was doing well with [place], her and at bedside. [place] Baby 1: gender: Male Presentation: vertex position: Right Occiput Anterior Placenta delivery description: Spontaneous cord vessel description: 3 Vessels score (1 min): 9 score (5 min): 9
[2020-04-18 09:50] VITALS: BP 126/84
[2020-04-19 06:05] LABS: Hematocrit 34.8 % (36-46); Hemoglobin 11.8 g/dL (12.0-16.0)
--- NOTE | 2020-04-19 08:21 | PM.OBDS.1 ---
Discharge Providers Provider Date of admission: 04/18/20 05:47 Discharge Date: 04/19/20 Primary care physician: Inez Morocho DO Consults: 04/19/20 08:20 Consult to Nursing Service Director Routine Comment: Discharge provider: Inez Morocho DO Summary Hospital Course Date Patient Seen: 04/19/20 Time Patient Seen: 07:45 Procedures: Spontaneous vaginal delivery Epidural analgesia Hospital Course: Patient is a 30-year-old G2 now P2 after uncomplicated spontaneous vaginal delivery at 39 weeks and 1 day on 04/18/20. Patient presented in active labor, received an epidural and went on to deliver a vigorous male. There were no lacerations. course has been uncomplicated. is going well. She is ambulating, eating, voiding and stooling without difficulty. Pain controlled without any medication. Vaginal bleeding is light. She is eager to go home. Advised patient to call for fevers, severe pain or bleeding through more than a pad an hour. Peripartum Data Delivery Method: Natural Vaginal Laceration description: None complications: none [place] 1: Gender: Male Disposition of : home Discharge Diagnosis (1) Spontaneous vaginal delivery: Status: Acute (2) 39 weeks gestation of : Status: Acute Status at Discharge Functional status at discharge: independent ambulation Overall status at discharge: patient is progressing back to baseline Time Spent with Patient Time attestation: Total time spent providing and/or coordinating discharge services: Time spent: Less than 30 minutes Objective Labs Result Diagrams: 04/19/20 05:55 Labs: Laboratory Results - last 24 hr 04/19/20 05:55 Hgb 11.8 L Hct 34.8 L Exam Vital Signs (past 8 hours): Temperature 98.9? blood pressure 136/67 heart rate 92 respirations 17 Narrative Exam Narrative: General: Awake and alert, no acute distress. HEENT: NCAT, EOMI, moist oral mucosa CV: Regular rate and rhythm, no murmurs, rubs or gallops Lungs: CTAB, no wheezes, rales, or rhonchi Abdomen: Soft, nontender; bowel tones active; uterus firm 1 cm below umbilicus Extremities: Warm, no edema Discharge Plan Discharge Plan Patient Disposition: Home Discharge orders & Medications Prescriptions: New docusate sodium [DOK] 100 mg Capsule 100 mg PO DAILY Qty: 30 RF: 0 ibuprofen 600 mg Tablet 600 mg PO Q6HR PRN (Reason: Pain, Mild (1-3)) Qty: 30 RF: 0 Continued acyclovir 400 mg tablet 400 mg PO TID Qty: 90 RF: 0 prenat.vits,janeth,evn-cdhp-fvboa Tablet 1 tab PO DAILY RF: 0 Discontinued metoclopramide HCl [Reglan] 10 mg tablet 10 mg PO Q6H PRN (Reason: nausea and vomiting) Qty: 30 RF: 0 lorazepam 0.5 mg tablet 0.5 mg PO DAILY PRN (Reason: nausea and vomiting) Qty: 20 RF: 0 ondansetron 4 mg tablet,disintegrating 4 mg PO Q6H PRN (Reason: nausea and vomiting) Qty: 20 RF: 0 Follow up/Referrals: Inez Morocho DO [Primary Care Provider] - 6 Weeks Visit Report/Discharge Packet Visit Report Forms: Patient Portal/API, Stroke Signs & Symptoms Discharge Data Primary Care Provider: Inez Morocho
[2020-04-19] MEDS: PRENATAL VIT,CALC/IRON/FOLIC 1 TABLET 1 TAB PO (08:55)
[2020-04-19] MEDS: DOCUSATE 100 MG CAPSULE PO (08:55)
[2020-04-19 09:49] VITALS: BP 136/67; PULSE 92; RESP 16; TEMP 37.2
== END 2020-04-19 11:08 | disposition home or self-care (01) | DRG 560 ==
PROVIDERS: Admitting Provider Family Medicine; PCP Family Medicine; Referring Provider Family Medicine; Visit Provider Family Medicine
DX: O98.32 Other infections with a predominantly sexual mode of transmission complicating childbirth (principal); B00.9 Herpesviral infection, unspecified; O99.324 Drug use complicating childbirth; F12.929 Cannabis use, unspecified with intoxication, unspecified; O99.334 Smoking (tobacco) complicating childbirth; F17.200 Nicotine dependence, unspecified, uncomplicated; Z3A.39 39 weeks gestation of pregnancy; Z37.0 Single live birth
CPT/HCPCS: 01967; 36415; 59050; 59409; 85014; 85018; 85025; 86850; 86900; 86901; G0379

== ENCOUNTER 2020-07-03 09:27 | Observation (INO) | payer OTHER, MEDICAID, SELFPAY ==
[2020-07-03] VITALS (22 sets, daily range): BP systolic 99–178; BP diastolic 60–96; PULSE 49–118; RESP 11–50; TEMP 36.9–37.1; O2SAT 86–100; BMI 29.2
[2020-07-03] MEDS: SODIUM CHLORIDE 0.9% 1,000 ML 1000 ML IV ×2 (09:57→11:54)
[2020-07-03] MEDS: ONDANSETRON 4 MG/2 ML INJ (09:57)
[2020-07-03 09:59] LABS: Add Manual Diff / Slide Review NO; Basophils Absolute Auto 0 /uL (0-100); Basophils Percent Auto 0.2 % (0-2); Eosinophils Absolute Auto 0 /uL (0-450); Hematocrit 44.4 % (36-46); Hemoglobin 14.9 g/dL (12.0-16.0); Lymphocytes Absolute Auto 1400 /uL (1100-4500); Lymphocytes Percent Auto 12.5 % (25-40); Mean Corpuscular HGB Conc 33.6 % (30-36); Mean Corpuscular Hemoglobin 27.4 PG (26-34); Mean Corpuscular Volume 81.3 fL (80-100); Monocytes Absolute Auto 1000 /uL (0-900); Monocytes Percent Auto 8.9 % (3-14); Neutrophils Absolute Auto 8800 /uL (1500-7000); Neutrophils Percent Auto 78.4 % (50-75); Platelet Count 350 X10^3/uL (150-400); Red Blood Cell Count 5.46 X10^6/uL (4.0-5.2); Red Cell Distribution Width 13.4 % (11.6-14.8); White Blood Cell Count 11.2 X10^3/uL (4.5-11.0)
[2020-07-03 10:08] LABS: INR 1.2 (0.9-1.3); Prothrombin Time 13.6 SECONDS (10.1-12.7)
[2020-07-03 10:09] LABS: Alanine Aminotransferase 32 IU/L (<35); Albumin 5.6 g/dL (3.5-5.0); Alkaline Phosphatase 80 U/L (38-126); Aspartate Aminotransferase 37 IU/L (14-36); BUN Creatinine Ratio 47.8 (6-22); Bilirubin Total 1.1 mg/dL (0.2-1.3); Blood Urea Nitrogen 43 mg/dL (7-17); Calcium 10.9 mg/dL (8.4-10.2); Chloride 77 mmol/L (98-107); Estimated Glomerular Filt Rate > 60.0 mL/min (>60); Glucose 134 mg/dL (70-100); Lipase 94 U/L (23-300); PTT Partial Thromboplastin Tim 30 SECONDS (26.4-36.2); Potassium 2.8 mmol/L (3.4-5.1); Sodium 136 mmol/L (137-145)
[2020-07-03 10:26] LABS: Albumin Globulin Ratio 1.3 (1.0-2.8); Globulin 4.3 g/dL (1.7-4.1); HEMOLYSIS 37 (0-50)
[2020-07-03 10:29] LABS: Total Protein 9.9 g/dL (6.3-8.2)
[2020-07-03 10:30] LABS: Carbon Dioxide 43 mmol/L (22-32)
[2020-07-03] MEDS: PANTOPRAZOLE 40 MG VIAL IV (10:41)
--- NOTE | 2020-07-03 11:27 | ED_ITS ---
HPI - Abdominal Pain General Chief Complaint: Abdominal Pain Stated Complaint: Throwing up since friday Time Seen by Provider: 07/03/20 10:36 Source: patient Mode of arrival: Ambulatory Limitations: no limitations History of Present Illness HPI narrative: Patient complains of nonbloody vomiting since Friday. Has been constant. Feels very weak and tired. Denies any diarrhea. No fever chills. Complains of epigastric right upper quadrant pain as well. Denies any sick contacts. No contaminated foods. Patient end of March 2020. Has been doing well. No urinary complaints other than decreased urine output. Unable to tolerate anything by mouth. Has been trying to do breast-feeding but unable to produce milk. Reviewed laboratory studies with patient. She did not want to be admitted. She states she has to be other family MD complaint: abdominal pain Related Data Home Medications Medication Instructions Recorded Confirmed prenat.vits,janeth,rpb-[id number] 1 tab PO DAILY 09/13/19 09/17/19 Previous Rx's Medication Instructions Recorded acyclovir 400 mg tablet 400 mg PO TID #90 tab 03/27/20 docusate sodium [DOK] 100 mg PO DAILY #30 cap 04/19/20 ibuprofen 600 mg PO Q6HR PRN #30 tab 04/19/20 nystatin 100,000 unit/gram topical 1 applictn TOP BID #15 gram 05/02/20 cream fluconazole 150 mg tablet 150 mg PO DAILY #7 tab 06/07/20 Allergies Allergy/AdvReac Type Severity Reaction Status Date / Time cetirizine [From Zyrtec] AdvReac Mild Verified 07/03/20 17:43 hydrocodone [From Vicodin] AdvReac Nausea Verified 07/03/20 17:43 Review of Systems Review of Systems Narrative: GENERAL: Denies chills, fatigue, malaise, fever, sweats. HEENT: Denies sinus pain, ear pain, sore throat, difficulty swallowing, dizziness. RESPIRATORY: Denies dyspnea, cough, wheezing, hemoptysis, sputum. CARDIOVASCULAR: Denies chest pain, palpitations, orthopnea, edema, GASTROINTESTINAL: Complains of nausea, vomiting, abdominal pain, denies diar karthik, constipation, melena. : Denies dysuria, frequency, incontinence, hematuria, urinary retention. MUSCULOSKELETAL: denies weakness, joint pain, or bony pain SKIN: Denies rash, skin lesions, or other NEUROLOGIC: Denies weakness, headache, numbness, change in speech, confusion, seizures, incoordination. PSYCHIATRIC: No concerning psychosocial issues. 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 infection (Acute) Hyperemesis gravidarum (Acute) Hyperthyroidism (Resolved) Pneumonia (Acute) Seasonal allergies (Acute) Ulcer (Acute) Surgical History History of appendectomy (Resolved) S/P LEEP (Acute ~07/12/19) [place] teeth extracted (Resolved) Family History Mother Endometrial cancer Other Adopted Social History marital status: household members: spouse lives independently: Yes occupational status: employed Smoking Status: Former smoker alcohol intake: former substance use type: marijuana Smoking Status: Former smoker Substance Use Type: does not use Exam Narrative Exam Narrative: GENERAL: patient appears stated age. Well-nourished, well-d eveloped patient, in no distress, not toxic HEAD: Atraumatic. Normocephalic. EYES: Pupils equal round and reactive. Extraocular motions intact. No scleral icterus. No injection or drainage. ENT: Nose without bleeding, purulent drainage. Throat without erythema, tonsillar hypertrophy or exudate. Airway patent. NECK: Trachea midline. Non tender CARDIOVASCULAR: Regular rate and rhythm without murmurs, gallops, or rubs. RESPIRATORY: Clear to auscultation. Breath sounds equal bilaterally. No wheezes, rales, or rhonchi. GASTROINTESTINAL: Abdomen soft, mild epigastric tenderness and right upper quadrant. Negative Mccoy sign. No CVA tenderness. No peritoneal signs. Normal bowel sounds EXTREMITIES: No edema or joint tenderness. BACK: Nontender without deformity or crepitance. No flank tenderness. NEURO: AOx3. SKIN: No rash or erythema of visible areas PSYCH: Not anxious, is cooperative Initial Vital Signs Initial Vital Signs: Vital Signs Temperature 98.5 F 07/03/20 09:34 Pulse Rate 118 H 07/03/20 09:34 Respiratory Rate 18 07/03/20 09:34 Pulse Oximetry 96 07/03/20 09:34 Course Course Course Narrative: Patient still hypokalemic after therapy for potassium replacement. No vomiting at this time Decision to Admit Date: 07/03/20 Decision to Admit time: 17:08 Orders Ordered: Acetaminophen (Tylenol) 650 mg PO Q6HR PRN PRN Reason: Fever/Mild Pain (1-3) Ceftriaxone Sodium/Dextrose (Rocephin) 1 gm in 50 mls @ 100 mls/hr IV Q24H CESAR Last Infusion: 07/03/20 21:40 Dose: 100 mls/hr Documented by: Admin: 07/03/20 20:43 Dose: 100 mls/hr Documented by: MARLYS Potassium Chloride/Sodium Chloride (Ns With Kcl 40 Meq) 1,000 mls @ 125 mls/hr IV CONT CESAR Last Admin: 07/04/20 01:13 Dose: 125 mls/hr Documented by: HIWOT Ketorolac Tromethamine (Toradol) 15 mg IV Q6HR PRN PRN Reason: Pain, Moderate (4-6) Stop: 07/08/20 20:04 Lorazepam (Ativan) 0.5 mg IV Q4HR PRN PRN Reason: Nausea And Vomiting Last Admin: 07/04/20 06:26 Dose: 0.5 mg Documented by: HIWOT Naloxone HCl (Narcan) 0.2 mg IV Q2MIN PRN PRN Reason: Opiate Reversal Ondansetron HCl (Zofran) 4 mg IV Q8HR PRN PRN Reason: Nausea And Vomiting Last Admin: 07/04/20 01:13 Dose: 4 mg Documented by: HIWOT Discontinued Medications Sodium Chloride (Normal Saline 0.9%) 1,000 mls @ 1,000 mls/hr IV BOLUS ONE Stop: 07/03/20 10:55 Last Infusion: 07/03/20 10:41 Dose: 0 mls/hr Documented by: Admin: 07/03/20 09:57 Dose: 1,000 mls/hr Documented by: MICHAEL Sodium Chloride (Normal Saline 0.9%) 1,000 mls @ 1,000 mls/hr IV BOLUS ONE Stop: 07/03/20 12:10 Last Infusion: 07/03/20 14:49 Dose: 0 mls/hr Documented by: Admin: 07/03/20 11:54 Dose: 1,000 mls/hr Documented by: MICHAEL Potassium Chloride 20 meq/ (Sodium Chloride) 260 mls @ 130 mls/hr IV NOW ONE Stop: 07/03/20 13:24 Last Infusion: 07/03/20 14:49 Dose: 0 mls/hr Documented by: JILLIAN Cosigned by: MICHAEL Admin: 07/03/20 11:53 Dose: 130 mls/hr Documented by: MICHAEL Cosigned by: BELL Potassium Chloride 20 meq/ (Sodium Chloride) 260 mls @ 130 mls/hr IV NOW ONE Stop: 07/03/20 18:35 Last Infusion: 07/03/20 18:59 Dose: 0 mls/hr Documented by: BELL Cosigned by: BAYLEE Admin: 07/03/20 17:01 Dose: 130 mls/hr Documented by: JILLIAN Cosigned by: BELL Sodium Chloride (Normal Saline 0.45%) 1,000 mls @ 100 mls/hr IV CONT CESAR Stop: 07/04/20 00:26 Last Infusion: 07/04/20 01:16 Dose: 0 mls/hr Documented by: Admin: 07/03/20 20:45 Dose: 100 mls/hr Documented by: MARLYS Lorazepam (Ativan) 1 mg IV NOW ONE Stop: 07/03/20 14:13 Last Admin: 07/03/20 14:15 Dose: 1 mg Documented by: JILLIAN Ondansetron HCl (Zofran) 4 mg IV NOW ONE Stop: 07/03/20 13:37 Last Admin: 07/03/20 13:45 Dose: 4 mg Documented by: JILLIAN Ondansetron HCl (Zofran) 4 mg IV NOW ONE Stop: 07/03/20 17:58 Last Admin: 07/03/20 19:20 Dose: 4 mg Documented by: MARLYS Pantoprazole Sodium (Protonix) 40 mg IV NOW ONE Stop: 07/03/20 10:39 Last Admin: 07/03/20 10:41 Dose: 40 mg Documented by: CSIEDLE Potassium Chloride (Klor-Con M20) 40 meq PO NOW ONE Stop: 07/03/20 11:26 Last Admin: 07/03/20 13:14 Dose: 40 meq Documented by: DominguezZOUTIS Potassium Chloride (Klor-Con M20) 40 meq PO NOW ONE Stop: 07/04/20 00:28 Last Admin: 07/04/20 02:00 Dose: 40 meq Documented by: HIWOT Reevaluation(s) Reevaluation #1: No nausea vomiting but still hypokalemic. No weakness of the legs or numbness. No arrhythm a a on monitor Time: 17:09 Consultations Consultation #1: Spoke with Dr. Dick, will admit observation Time: 17:09 Vital Signs Vital signs: Vital Signs - 8 hr 07/03/20 09:34 07/03/20 10:18 07/03/20 10:30 Temperature 98.5 F Pulse Rate 118 H 66 79 Respiratory Rate 18 Blood Pressure 116/73 Pulse Oximetry 96 91 95 07/03/20 11:00 07/03/20 11:30 07/03/20 12:00 Temperature Pulse Rate 66 63 52 L Respiratory Rate 17 Blood Pressure Pulse Oximetry 96 97 95 07/03/20 12:14 07/03/20 12:30 07/03/20 13:00 Temperature Pulse Rate 65 66 72 Respiratory Rate 28 H 25 H Blood Pressure 137/77 105/60 99/61 Pulse Oximetry 97 87 L 93 07/03/20 13:30 07/03/20 13:48 07/03/20 14:00 Temperature Pulse Rate 76 69 52 L Respiratory Rate 11 L Blood Pressure 134/90 137/76 Pulse Oximetry 96 86 L 07/03/20 14:30 07/03/20 15:00 Temperature Pulse Rate 62 65 Respiratory Rate 50 H 27 H Blood Pressure 103/64 100/60 Pulse Oximetry 90 L 92 MDM - Abdominal Pain Lab Data Result diagrams: 07/04/20 06:05 07/04/20 06:05 Labs: Lab Results 07/03/20 07/03/20 07/03/20 Range/Units 09:50 09:50 09:50 WBC 11.2 H (4.5-11.0) X10^3/uL RBC 5.46 H (4.0-5.2) X10^6/uL Hgb 14.9 (12.0-16.0) g/dL Hct 44.4 (36-46) % MCV 81.3 (80-100) fL MCH 27.4 (26-34) PG MCHC 33.6 (30-36) % RDW 13.4 (11.6-14.8) % Plt Count 350 (150-400) X10^3/uL Neut % (Auto) 78.4 H (50-75) % Lymph % (Auto) 12.5 L (25-40) % [place] % (Auto) 8.9 (3-14) % Eos % (Auto) 0.0 L (2-4) % Baso % (Auto) 0.2 (0-2) % Neut # (Auto) 8800 H (3566-7312) /uL Lymph # (Auto) 1400 (6197-9390) /uL [place] # (Auto) 1000 H (0-900) /uL Eos # (Auto) 0 (0-450) /uL Baso # (Auto) 0 (0-100) /uL PT 13.6 H (10.1-12.7) SECONDS INR 1.2 (0.9-1.3) APTT 30 (26.4-36.2) SECONDS Sodium 136 L (137-145) mmol/L Potassium 2.8 L (3.4-5.1) mmol/L Chloride 77 L (98-107) mmol/L Carbon Dioxide 43 H* (22-32) mmol/L BUN 43 H (7-17) mg/dL Creatinine 0.90 (0.52-1.04) mg/dL Estimated GFR > 60.0 (>60) mL/min BUN/Creatinine Ratio 47.8 H (6-22) Glucose 134 H (70-100) mg/dL Calcium 10.9 H (8.4-10.2) mg/dL Total Bilirubin 1.1 (0.2-1.3) mg/dL AST 37 H (14-36) IU/L ALT 32 (<35) IU/L Alkaline Phosphatase 80 (38-126) U/L Total Protein 9.9 H* (6.3-8.2) g/dL Albumin 5.6 H (3.5-5.0) g/dL Globulin 4.3 H (1.7-4.1) g/dL Albumin/Globulin Ratio 1.3 (1.0-2.8) Lipase 94 (23-300) U/L HCG, Quant mIU/mL Serum , Qual (Negative) Urine RBC (0-5/HPF) Urine WBC (0-5/HPF) Ur Squamous Epith Cells (0-5/HPF) Urine Bacteria (None) Hyaline Casts (None) Ur Culture Indicated? COVID-19 PCR (Negative) 07/03/20 07/03/20 07/03/20 Range/Units 09:50 09:50 11:48 WBC (4.5-11.0) X10^3/uL RBC (4.0-5.2) X10^6/uL Hgb (12.0-16.0) g/dL Hct (36-46) % MCV (80-100) fL MCH (26-34) PG MCHC (30-36) % RDW (11.6-14.8) % Plt Count (150-400) X10^3/uL Neut % (Auto) (50-75) % Lymph % (Auto) (25-40) % [place] % (Auto) (3-14) % Eos % (Auto) (2-4) % Baso % (Auto) (0-2) % Neut # (Auto) (7817-1552) /uL Lymph # (Auto) (2241-1519) /uL [place] # (Auto) (0-900) /uL Eos # (Auto) (0-450) /uL Baso # (Auto) (0-100) /uL PT (10.1-12.7) SECONDS INR (0.9-1.3) APTT (26.4-36.2) SECONDS Sodium (137-145) mmol/L Potassium (3.4-5.1) mmol/L Chloride (98-107) mmol/L Carbon Dioxide (22-32) mmol/L BUN (7-17) mg/dL Creatinine (0.52-1.04) mg/dL Estimated GFR (>60) mL/min BUN/Creatinine Ratio (6-22) Glucose (70-100) mg/dL Calcium (8.4-10.2) mg/dL Total Bilirubin (0.2-1.3) mg/dL AST (14-36) IU/L ALT (<35) IU/L Alkaline Phosphatase (38-126) U/L Total Protein (6.3-8.2) g/dL Albumin (3.5-5.0) g/dL Globulin (1.7-4.1) g/dL Albumin/Globulin Ratio (1.0-2.8) Lipase (23-300) U/L HCG, Quant < 2.4 mIU/mL Serum , Qual Negative (Negative) Urine RBC 1-5/hpf (0-5/HPF) Urine WBC 1-5/hpf (0-5/HPF) Ur Squamous Epith Cells 1-5 /hpf (0-5/HPF) Urine Bacteria Moderate (10-30) H (None) Hyaline Casts 0-1/lpf (None) Ur Culture Indicated? Specimen cultured COVID-19 PCR (Negative) 07/03/20 07/03/20 Range/Units 15:16 17:50 WBC (4.5-11.0) X10^3/uL RBC (4.0-5.2) X10^6/uL Hgb (12.0-16.0) g/dL Hct (36-46) % MCV (80-100) fL MCH (26-34) PG MCHC (30-36) % RDW (11.6-14.8) % Plt Count (150-400) X10^3/uL Neut % (Auto) (50-75) % Lymph % (Auto) (25-40) % [place] % (Auto) (3-14) % Eos % (Auto) (2-4) % Baso % (Auto) (0-2) % Neut # (Auto) (0625-0871) /uL Lymph # (Auto) (7497-2431) /uL [place] # (Auto) (0-900) /uL Eos # (Auto) (0-450) /uL Baso # (Auto) (0-100) /uL PT (10.1-12.7) SECONDS INR (0.9-1.3) APTT (26.4-36.2) SECONDS Sodium 135 L (137-145) mmol/L Potassium 2.6 L* (3.4-5.1) mmol/L Chloride 87 L (98-107) mmol/L Carbon Dioxide 37 H (22-32) mmol/L BUN 28 H (7-17) mg/dL Creatinine 0.78 (0.52-1.04) mg/dL Estimated GFR > 60.0 (>60) mL/min BUN/Creatinine Ratio 35.9 H (6-22) Glucose 123 H (70-100) mg/dL Calcium 10.0 (8.4-10.2) mg/dL Total Bilirubin 0.8 (0.2-1.3) mg/dL AST 27 (14-36) IU/L ALT 26 (<35) IU/L Alkaline Phosphatase 63 (38-126) U/L Total Protein 8.3 H (6.3-8.2) g/dL Albumin 4.8 (3.5-5.0) g/dL Globulin 3.5 (1.7-4.1) g/dL Albumin/Globulin Ratio 1.4 (1.0-2.8) Lipase (23-300) U/L HCG, Quant mIU/mL Serum , Qual (Negative) Urine RBC (0-5/HPF) Urine WBC (0-5/HPF) Ur Squamous Epith Cells (0-5/HPF) Urine Bacteria (None) Hyaline Casts (None) Ur Culture Indicated? COVID-19 PCR Negative (Negative) Point of care testing: Point of Care Testing Test Results Negative Urine Dip Bedside Urine Glucose Negative Bedside Urine Bilirubin - Negative Bedside Urine Ketone +/- 5 Urine Specific [place] 1.010 Bedside Urine Occult Blood + Bedside Urine pH 8.0 Bedside Urine Protein +++ 300 Bedside Urine Urobilinogen - Negative Bedside Urine Nitrite - Negative Bedside Urine Leukocytes +/- [address] scan - abdomen/pelvis: Radiologist's Impression: [address] [address] [address] Scan Report Signed Patient: Iveth Gutierres [facility]#: [id number] : 1990Acct:[id number] Age/Sex: 30 / FDate of Service: 07/03/20 Loc: ED Accession Number: [id number] Procedure: CT abdomen pelvis w con Ordering Provider: Jake Hung MD PROCEDURE: CT ABDOMEN PELVIS W CON INDICATIONS: Upper abdominal pain. Nausea and vomitting TECHNIQUE: After the administration of intravenous contrast, 5 mm thick sections acquired from the diaphragm to the symphysis. 5 mm coronal and sagittal reformats were acquired. For radiation dose reduction, the following was used: automated exposure control, adjustment of mA and/or kV according to patient size. COMPARISON: [facility], CT, CT ABDOMEN PELVIS WITH CONTRAST, 01/30/2018, 16:01. FINDINGS: Image quality: Excellent. ABDOMEN: Lung bases: Lung bases are clear. Heart size is normal. Solid organs: Mild hepatic steatosis. Liver is normal in size and enhancement. Gallbladder is normal. Biliary system is non dilated. Pancreas enhances normally. Spleen is normal in size and enhancement. No adrenal nodules. Kidneys demonstrate normal size and enhancement, without hydronephrosis. Peritoneum and bowel: Mild gastric wall thickening. There is an air-fluid level in stomach. Bowel loops demonstrate normal wall thickness and caliber. Probable mild thickening of terminal ileum. No free fluid or air. Nodes and vessels: No retroperitoneal or mesenteric adenopathy by size criteria. Aorta and inferior vena cava are normal in size. Miscellaneous: No ventral hernias. PELVIS: Genitourinary: Bladder wall thickness is normal. Uterus and ovaries are unremarkable. No free fluid in pelvis. Miscellaneous: No inguinal hernias or adenopathy. Bones: No suspicious bony lesions. No vertebral body compression fractures. IMPRESSION: 1. Mild gastric wall thickening suggest gastritis. Recommend clinical correlation. 2. Probable mild thickening of the terminal ileum. In the absence of oral contrast, the finding could be related to artifact but mild inflammatory bowel disease or infectious etiology cannot be excluded. Dictated by: Yvette Richter M.D. on 07/03/2020 at 12:29 Approved by: Yvette Richter M.D. on 07/03/2020 at 12:35 ECG Data Attestation: I personally reviewed and interpreted this ECG as follows: Interpretation: Normal sinus rhythm rate 76. No ST elevation or depression MDM Narrative Medical decision making narrative: Appropriate for admission to hospital. Patient remains hypokalemic after attempts for potassium replacement. In fact, potassium levels lowered/decreased. Patient agrees with admission Discharge Plan Departure Patient Disposition: Admitted as Observation Clinical Impression: Acute hypokalemia Discharge Date/Time: 07/03/20 18:25 Referrals: Inez Morocho DO [Primary Care Provider] - Admit Date/Time: 07/03/20 18:01 Admit Provider: Geeta Dick
--- NOTE | 2020-07-03 11:29 | PC.NURSE ---
Pt refusing admission. states she cannot have her be all alone with her children. refusing covid swab. K+ low and agreed to KRider and oral potassium. 2nd liter of fluid infusing. ice chips given. awaiting preg test for CT. Nausea improved
[2020-07-03 11:39] LABS: Pregnancy Test Serum,Qual Negative (Negative)
[2020-07-03] MEDS: POTASSIUM CHLORIDE 20 MEQ in SODIUM CHLORIDE 0.9% 250 ML 130 ML IV ×2 (11:53→17:01)
[2020-07-03 12:16] LABS: Bacteria Urine Moderate (10-30); Hyaline Casts Urine 0-1/LPF; RBC Urine 1-5/HPF (0-5/HPF); Squamous Epithelial Cell Urine 1-5 /HPF (0-5/HPF); WBC Urine 1-5/HPF (0-5/HPF)
[2020-07-03 12:17] LABS: Culture Indicated Urine Specimen Cultured
[2020-07-03] MEDS: POTASSIUM CHLORIDE 20 MEQ TAB 40 MEQ PO (13:14)
--- NOTE | 2020-07-03 13:18 | PC.NURSE ---
sbar recived pt resting in bed on lunchroom monitor ivf infusing. pt provided with drink and pills able to tolorate po intake at this time
[2020-07-03] MEDS: ONDANSETRON 4 MG/2 ML INJ IV ×2 (13:45→19:20)
[2020-07-03] MEDS: LORazepam 2 MG/ML INJ 1 MG IV (14:15)
--- NOTE | 2020-07-03 15:22 | PC.NURSE ---
rpt labs drawn by seed laboratory technician
[2020-07-03 15:36] LABS: Alanine Aminotransferase 26 IU/L (<35); Albumin 4.8 g/dL (3.5-5.0); Albumin Globulin Ratio 1.4 (1.0-2.8); Alkaline Phosphatase 63 U/L (38-126); Aspartate Aminotransferase 27 IU/L (14-36); BUN Creatinine Ratio 35.9 (6-22); Bilirubin Total 0.8 mg/dL (0.2-1.3); Blood Urea Nitrogen 28 mg/dL (7-17); Chloride 87 mmol/L (98-107); Estimated Glomerular Filt Rate > 60.0 mL/min (>60); Globulin 3.5 g/dL (1.7-4.1); Glucose 123 mg/dL (70-100); HEMOLYSIS < 15 (0-50); Sodium 135 mmol/L (137-145); Total Protein 8.3 g/dL (6.3-8.2)
[2020-07-03 15:42] LABS: Carbon Dioxide 37 mmol/L (22-32)
[2020-07-03 15:45] LABS: Potassium 2.6 mmol/L (3.4-5.1)
[2020-07-03 19:32] LABS: COVID19 -Nasal RAPID Negative (Negative)
--- NOTE | 2020-07-03 20:03 | PC.NURSE ---
Addendum entered by Sosa Manley R.N. 07/03/20 21:32: Pt continues w/slight nausea. IVF infusing as per orders via ump w/o incidence. Pt resting @ intervals. Allowed to shower tonight. Call light w/in reach, bed alarm on for pt safety. Continue w/plan of care. Original Note: Pt arrived from ED @ 1845 Alert/oriented. C/O nausea, med w/zofran KCL infusing into the RAC site via pump w/o incidence. Pt oriented to room & call system Call light w/in reach, pt calls apprpriately for needs.
[2020-07-03 20:40] LABS: Hemoglobin A1C% w Est Avg Glu 4.8 % (4.0-6.0)
[2020-07-03 20:43] LABS: BUN Creatinine Ratio 31.4 (6-22); Blood Urea Nitrogen 22 mg/dL (7-17); Calcium 9.8 mg/dL (8.4-10.2); Carbon Dioxide 37 mmol/L (22-32); Chloride 93 mmol/L (98-107); Estimated Glomerular Filt Rate > 60.0 mL/min (>60); Glucose 122 mg/dL (70-100); HEMOLYSIS 17 (0-50); Potassium 3.2 mmol/L (3.4-5.1); Sodium 136 mmol/L (137-145)
[2020-07-03] MEDS: CEFTRIAXONE 1 GM/50 ML FROZ.PIGGY IV (20:43)
[2020-07-03] MEDS: SODIUM CHLORIDE 0.45% 1,000 ML 100 ML IV (20:45)
[2020-07-03 22:27] LABS: UR Morphine/Opiate cutoff 300 Negative (Negative); Ur Creatinine Normal (Normal); Ur Specific Gravity Normal (Normal); Urine Amphetamines Negative (Negative); Urine Barbiturates Negative (Negative); Urine Benzodiazepines Negative (Negative); Urine Cocaine Negative (Negative); Urine MDMA Negative (Negative); Urine Methadone Negative (Negative); Urine Methamphetamines Negative (Negative); Urine Oxycodone Negative (Negative); Urine Phencyclidine Negative (Negative); Urine Tetrahydrocannabinol Positive (Negative); Urine Tricyclic Antidepressant Negative (Negative); Urine pH Normal (Normal)
[2020-07-03 23:52] LABS: HCG Quantitative /Beta subunit < 2.4 mIU/mL
[2020-07-04] VITALS (7 sets, daily range): BP systolic 107–142; BP diastolic 66–92; PULSE 49–54; RESP 16; TEMP 36.4–36.8; O2SAT 98–100
--- NOTE | 2020-07-04 00:12 | PM.HP.1 ---
History of Present Illness History of Present Illness Date Patient Seen: 07/03/20 Time Patient Seen: 21:00 Chief complaint: Throwing up since friday Narrative: Iveth Gutierres is a 30-year-old female who presents with nausea, vomiting muscle cramps. She delivered her 2nd child on April 18 of this year and has had recurrent problems with nausea and vomiting. She is concerned that she might be again as the last time she became it was shortly after the of her 1st child and requested that I order a quantitative hCG on her. She denies fever chills or sweats, respiratory symptoms, sore throat, chest pain, she does have intractable nausea and vomiting, she did state that she did not urinate for several days prior to coming into the ED. She was able to given him sample and stated it was normal looking and was not painful to urinate. Patient was a previous marijuana user previously smoked and then started taking marijuana buds to help with her nausea. She did not use marijuana during this last and has had not had any marijuana since delivering either. She was diagnosed with hyperemesis during her 1st and also had problems during her 2nd . Patient denies diarrhea constipation, she denies any rashes but states she has been bruising easily which is new for her. In the emergency department she was found to have significant hyponatremia and hypokalemia. Her sodium was 135 which improved to 136 and her potassium was 2.6 which improved to 3.2 after being given normal saline as well as 80 mEq of oral and IV potassium. Her glucose was elevated at 120 to however an A1c that was drawn it did not indicate she has diabetes. Both qualitative and quantitative hCG were negative. CT scan of the abdomen and pelvis was largely negative except for a small inflammatory finding at the terminal ileus and infection could not be excluded. Patient's temp was 97.7?, blood pressure 147/67, heart rate 66, respiratory rate 18, oxygen saturation of 100% on room air, she weighs 77.1 kg with a BMI of 29.2. WBC was mildly elevated 11.2, RBC 5.46, hemoglobin 14.9, hematocrit 44.4, platelet count of 350, sodium 136, potassium 3.2, chloride 93, CO2 37, BUN 422, creatinine 0.7, GFR is greater than 60, liver enzymes largely normal, a moderate amount of bacteria or found in her urine and that has been sent off for culture. Urine tox screen was positive for THC, rest of substances tested were negative, so obviously the patient has not discontinued her marijuana use. 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 (Acute) Hyperemesis gravidarum (Acute) Hyperthyroidism (Resolved) Pneumonia (Acute) Seasonal allergies (Acute) Ulcer (Acute) Surgical History History of appendectomy (Resolved) S/P LEEP (Acute ~07/12/19) Hundred teeth extracted (Resolved) Family & Social History Family History Mother Endometrial cancer Other Adopted Social History: household members spouse Prior Living Arrangements House lives independently Yes Safety & Behavioral: Feels Safe in Current Yes Environment Been Physically Hurt or No Threatened By a Person Suicidal Ideation Description None Suicide Plan Description No Plan Tobacco & Substance use: Tobacco type cannabis/marijuana Smoking Status Former smoker alcohol intake former Substance Use Type does not use Meds Home Medications and Allergies Home Medications Medication Instructions Recorded Confirmed Type prenat.vits,janeth,[id number] 1 tab PO DAILY 09/13/19 09/17/19 History acyclovir 400 mg tablet 400 mg PO TID #90 tab 03/27/20 03/27/20 Rx docusate sodium [DOK] 100 mg PO DAILY #30 cap 04/19/20 Rx ibuprofen 600 mg PO Q6HR PRN #30 tab 04/19/20 Rx nystatin 100,000 unit/gram topical 1 applictn TOP BID #15 gram 05/02/20 Rx cream fluconazole 150 mg tablet 150 mg PO DAILY #7 tab 06/07/20 Rx Allergies Allergy/AdvReac Type Severity Reaction Status Date / Time cetirizine [From Zyrtec] AdvReac Mild Verified 07/03/20 17:43 hydrocodone [From Vicodin] AdvReac Nausea Verified 07/03/20 17:43 Exam Vital Signs (past 8 hours): - 07/03/20 16:30 07/03/20 17:00 07/03/20 17:03 Temperature Pulse Rate 69 70 59 L Respiratory Rate 20 16 31 H Blood Pressure 110/74 178/96 H Pulse Oximetry 94 98 98 07/03/20 17:30 07/03/20 18:00 07/03/20 18:48 Temperature 98.8 F Pulse Rate 49 L 52 L 57 L Respiratory Rate 18 19 19 Blood Pressure 154/74 H 140/91 H 139/84 Pulse Oximetry 92 99 100 Oxygen Delivery Method Room Air Narrative Exam Narrative: Gen: Alert, oriented, well-developed 28 y.o. female, she is on her knees on the bench appearing to be trying to get more comfortable HEENT: normocephalic, atraumatic, conjunctiva clear, sclera non-icteric, oral mucosa pink and moist Neck: supple, full ROM, no JVD, trachea is midline Resp: Lungs CTA, non-labored breathing CV: RRR, no murmur or rubs Abd: soft, non-tender, normoactive BTs Skin: no lesions or rashes, dry and intact Neuro: Alert and oriented X 4 w/no focal deficits. Speech clear and coherent. Extremities: moves all 4 extremities, is ambulatory, negative Jannette?s sign Psyche: normal mood and affect. Objective Labs Result Diagrams: 07/03/20 09:50 07/03/20 20:22 Labs: Laboratory Results - last 24 hr 07/03/20 07/03/20 07/03/20 09:50 09:50 09:50 WBC 11.2 H RBC 5.46 H Hgb 14.9 Hct 44.4 MCV 81.3 MCH 27.4 MCHC 33.6 RDW 13.4 Plt Count 350 Neut % (Auto) 78.4 H Lymph % (Auto) 12.5 L [place] % (Auto) 8.9 Eos % (Auto) 0.0 L Baso % (Auto) 0.2 Neut # (Auto) 8800 H Lymph # (Auto) 1400 [place] # (Auto) 1000 H Eos # (Auto) 0 Baso # (Auto) 0 PT 13.6 H INR 1.2 APTT 30 Sodium 136 L Potassium 2.8 L Chloride 77 L Carbon Dioxide 43 H* BUN 43 H Creatinine 0.90 Estimated GFR > 60.0 BUN/Creatinine Ratio 47.8 H Glucose 134 H Hemoglobin A1c Calcium 10.9 H Total Bilirubin 1.1 AST 37 H ALT 32 Alkaline Phosphatase 80 Total Protein 9.9 H* Albumin 5.6 H Globulin 4.3 H Albumin/Globulin Ratio 1.3 Lipase 94 HCG, Quant Serum , Qual Urine RBC Urine WBC Ur Squamous Epith Cells Urine Bacteria Hyaline Casts Ur Culture Indicated? U Opiates 300ng/mL cut Ur Oxycodone Screen Urine Methadone Screen Ur Barbiturates Screen U Tricyclic Antidepress Ur Phencyclidine Scrn Ur Amphetamines Screen U Methamphetamines Scrn Ur MDMA Scrn (Ecstasy) U Benzodiazepines Scrn Urine Cocaine Screen U Marijuana (THC) Screen COVID-19 PCR 07/03/20 07/03/20 07/03/20 09:50 09:50 11:48 WBC RBC Hgb Hct MCV MCH MCHC RDW Plt Count Neut % (Auto) Lymph % (Auto) [place] % (Auto) Eos % (Auto) Baso % (Auto) Neut # (Auto) Lymph # (Auto) [place] # (Auto) Eos # (Auto) Baso # (Auto) PT INR APTT Sodium Potassium Chloride Carbon Dioxide BUN Creatinine Estimated GFR BUN/Creatinine Ratio Glucose Hemoglobin A1c Calcium Total Bilirubin AST ALT Alkaline Phosphatase Total Protein Albumin Globulin Albumin/Globulin Ratio Lipase HCG, Quant < 2.4 Serum , Qual Negative Urine RBC 1-5/hpf Urine WBC 1-5/hpf Ur Squamous Epith Cells 1-5 /hpf Urine Bacteria Moderate (10-30) H Hyaline Casts 0-1/lpf Ur Culture Indicated? Specimen cultured U Opiates 300ng/mL cut Ur Oxycodone Screen Urine Methadone Screen Ur Barbiturates Screen U Tricyclic Antidepress Ur Phencyclidine Scrn Ur Amphetamines Screen U Methamphetamines Scrn Ur MDMA Scrn (Ecstasy) U Benzodiazepines Scrn Urine Cocaine Screen U Marijuana (THC) Screen COVID-19 PCR 07/03/20 07/03/20 07/03/20 15:16 17:50 20:22 WBC RBC Hgb Hct MCV MCH MCHC RDW Plt Count Neut % (Auto) Lymph % (Auto) [place] % (Auto) Eos % (Auto) Baso % (Auto) Neut # (Auto) Lymph # (Auto) [place] # (Auto) Eos # (Auto) Baso # (Auto) PT INR APTT Sodium 135 L 136 L Potassium 2.6 L* 3.2 L Chloride 87 L 93 L Carbon Dioxide 37 H 37 H BUN 28 H 22 H Creatinine 0.78 0.70 Estimated GFR > 60.0 > 60.0 BUN/Creatinine Ratio 35.9 H 31.4 H Glucose 123 H 122 H Hemoglobin A1c Calcium 10.0 9.8 Total Bilirubin 0.8 AST 27 ALT 26 Alkaline Phosphatase 63 Total Protein 8.3 H Albumin 4.8 Globulin 3.5 Albumin/Globulin Ratio 1.4 Lipase HCG, Quant Serum , Qual Urine RBC Urine WBC Ur Squamous Epith Cells Urine Bacteria Hyaline Casts Ur Culture Indicated? U Opiates 300ng/mL cut Ur Oxycodone Screen Urine Methadone Screen Ur Barbiturates Screen U Tricyclic Antidepress Ur Phencyclidine Scrn Ur Amphetamines Screen U Methamphetamines Scrn Ur MDMA Scrn (Ecstasy) U Benzodiazepines Scrn Urine Cocaine Screen U Marijuana (THC) Screen COVID-19 PCR Negative 07/03/20 07/03/20 20:22 21:50 WBC RBC Hgb Hct MCV MCH MCHC RDW Plt Count Neut % (Auto) Lymph % (Auto) [place] % (Auto) Eos % (Auto) Baso % (Auto) Neut # (Auto) Lymph # (Auto) [place] # (Auto) Eos # (Auto) Baso # (Auto) PT INR APTT Sodium Potassium Chloride Carbon Dioxide BUN Creatinine Estimated GFR BUN/Creatinine Ratio Glucose Hemoglobin A1c 4.8 Calcium Total Bilirubin AST ALT Alkaline Phosphatase Total Protein Albumin Globulin Albumin/Globulin Ratio Lipase HCG, Quant Serum , Qual Urine RBC Urine WBC Ur Squamous Epith Cells Urine Bacteria Hyaline Casts Ur Culture Indicated? U Opiates 300ng/mL cut Negative Ur Oxycodone Screen Negative Urine Methadone Screen Negative Ur Barbiturates Screen Negative U Tricyclic Antidepress Negative Ur Phencyclidine Scrn Negative Ur Amphetamines Screen Negative U Methamphetamines Scrn Negative Ur MDMA Scrn (Ecstasy) Negative U Benzodiazepines Scrn Negative Urine Cocaine Screen Negative U Marijuana (THC) Screen Positive H COVID-19 PCR Assessment & Plan Assessment & Plan narrative: Iveth Gutierres will be placed in observation for cannoboid associated hyperemesis. Cannaboid associated hyperemesis, acute, present on admission -IV Zofran 4 mg Q 6 as needed -Ativan 1 mg q.6 as needed as needed -IV normal saline at 125 mL/hour Metabolic derangements secondary to hyperemesis, acute, present on admission -she received 40 mEq IV potassium and 40 mEq oral potassium -normal saline will be supplemented with 40 mEq of potassium and she will receive another oral dose of 40 mEq potassium tonight. -telemetry overnight -Recheck BMP in the morning plus magnesium Urinary tract infection, acute, present on admission -she is started on IV ceftriaxone 1 g daily -urine cultures pending Question new -both quantitative and qualitative HCGs are negative COVID-19 COVID-19 status: Negative Result date/Date tested (Pos, Neg/Pending): 07/03/20 Quality VTE Deep Vein Thrombosis/Pulmonary Embolism Present on Admission: No
--- NOTE | 2020-07-04 01:07 | PC.NURSE ---
Addendum entered by Gail Raymond R.N. 07/04/20 06:32: Complains of nausea but too early to give additional Zofran so medicated with Ativan. Addendum entered by Gail Raymond R.N. 07/04/20 02:07: Had a 150cc emesis at 0130 so po KCl held until now as states stomach is feeling more settled. Noted to have not had BM since 06/29 but reports flatus. Addendum entered by Gail Raymond R.N. 07/04/20 01:16: Now complaining of nausea so medicated with Zofran Original Note: Patient is alert and oriented. Breath sounds CTA with RA sat of 100%. HRR. Denies nausea at present time. BT present and abdomen is soft; tender across upper abdomen. Denies dysuria, frequency or urgency with urination. Is able to turn self in bed. Up to bathroom with SBA. Calf SCD's applied at this time. Denies pain. Fall risk score is low.
[2020-07-04] MEDS: ONDANSETRON 4 MG/2 ML INJ IV ×2 (01:13→10:36)
[2020-07-04] MEDS: KCL 40 MEQ IN NS 1,000 ML 125 MEQ IV ×2 (01:13→09:15)
[2020-07-04] MEDS: POTASSIUM CHLORIDE 20 MEQ TAB 40 MEQ PO (02:00)
[2020-07-04] MEDS: LORazepam 2 MG/ML INJ 0.5 MG IV ×2 (06:26→11:11)
[2020-07-04 06:28] LABS: Add Manual Diff / Slide Review NO; Basophils Absolute Auto 0 /uL (0-100); Basophils Percent Auto 0.1 % (0-2); Eosinophils Absolute Auto 0 /uL (0-450); Eosinophils Percent Auto 0.2 % (2-4); Hematocrit 35.4 % (36-46); Hemoglobin 11.9 g/dL (12.0-16.0); Lymphocytes Absolute Auto 2500 /uL (1100-4500); Mean Corpuscular HGB Conc 33.6 % (30-36); Mean Corpuscular Hemoglobin 27.6 PG (26-34); Mean Corpuscular Volume 82.2 fL (80-100); Monocytes Absolute Auto 600 /uL (0-900); Monocytes Percent Auto 8.6 % (3-14); Neutrophils Absolute Auto 4200 /uL (1500-7000); Neutrophils Percent Auto 57.1 % (50-75); Platelet Count 226 X10^3/uL (150-400); Red Blood Cell Count 4.31 X10^6/uL (4.0-5.2); Red Cell Distribution Width 13.4 % (11.6-14.8); White Blood Cell Count 7.4 X10^3/uL (4.5-11.0)
[2020-07-04 06:43] LABS: Alanine Aminotransferase 19 IU/L (<35); Albumin 3.9 g/dL (3.5-5.0); Albumin Globulin Ratio 1.3 (1.0-2.8); Alkaline Phosphatase 51 U/L (38-126); Aspartate Aminotransferase 21 IU/L (14-36); BUN Creatinine Ratio 21.9 (6-22); Bilirubin Total 0.7 mg/dL (0.2-1.3); Blood Urea Nitrogen 16 mg/dL (7-17); Calcium 9.3 mg/dL (8.4-10.2); Carbon Dioxide 36 mmol/L (22-32); Chloride 99 mmol/L (98-107); Estimated Glomerular Filt Rate > 60.0 mL/min (>60); Globulin 2.9 g/dL (1.7-4.1); Glucose 92 mg/dL (70-100); HEMOLYSIS < 15 (0-50); Magnesium 2.5 mg/dL (1.6-2.3); Potassium 3.7 mmol/L (3.4-5.1); Sodium 136 mmol/L (137-145); Total Protein 6.8 g/dL (6.3-8.2)
--- NOTE | 2020-07-04 14:24 | CM.DANOTE ---
DCP assessment: EMR reviewed: Patient is a 30 yr old female who was admitted for N/V for three days. Patients PCP is Dr Morocho. CM/RN met with patient at the bedside and explained role. Patient was alert and oriented x3 during CM/RN visit. Patient currently lives with her demario and there two children. Patient gave two months ago with her youngest. Patient is Independent with all ADLs and Drives at baseline. Patient is stating during visit that she is feeling more nauseated after drinking some cranberry juice. CM/RN notified patients RN. I: [facility] and medicaid Plan: D/C home with family when medically stable. No identified D?C planning needs noted at this time. Cm department will follow patient to help with any D/c planning needs that may arise. Mylene Irby RN Discharge Planning/Care Management CM Discharge Assessment Start: 07/04/20 14:20 Freq: Status: Active Protocol: Document 07/04/20 14:20 HS (Rec: 07/04/20 14:24 HS [id number]) Discharge Planning Assessment Assigned Staff Nurse Mylene Irby RN DPOA/Assigned Designee Name Demario Rosenthal (spouse) Contact Information [phone] Advance Directives? No History Provided By Patient,Medical Record Prior Living Arrangements House Household Members spouse,children Type of transporation used prior to Drives own vehicle admit Independent with ADL's Yes Is patient alert and oriented? Yes Barriers to Discharge No Discharge Plan Home Referrals Initiated None needed Whiteboard Updated in Patient Room with Yes name and ext. # of Staff Nurse Review Status In Process Next Review Type Continued Stay Review
--- NOTE | 2020-07-04 14:37 | PM.DS.1 ---
History of Present Illness History of Present Illness Chief complaint: Throwing up since friday Narrative: Iveth Gutierres is a 30-year-old female who presents with nausea, vomiting muscle cramps. She delivered her 2nd child on April 18 of this year and has had recurrent problems with nausea and vomiting. She is concerned that she might be again as the last time she became it was shortly after the of her 1st child and requested that I order a quantitative hCG on her. She denies fever chills or sweats, respiratory symptoms, sore throat, chest pain, she does have intractable nausea and vomiting, she did state that she did not urinate for several days prior to coming into the ED. She was able to given him sample and stated it was normal looking and was not painful to urinate. Patient was a previous marijuana user previously smoked and then started taking marijuana buds to help with her nausea. She did not use marijuana during this last and has had not had any marijuana since delivering either. She was diagnosed with hyperemesis during her 1st and also had problems during her 2nd . Patient denies diarrhea constipation, she denies any rashes but states she has been bruising easily which is new for her. In the emergency department she was found to have significant hyponatremia and hypokalemia. Her sodium was 135 which improved to 136 and her potassium was 2.6 which improved to 3.2 after being given normal saline as well as 80 mEq of oral and IV potassium. Her glucose was elevated at 120 to however an A1c that was drawn it did not indicate she has diabetes. Both qualitative and quantitative hCG were negative. CT scan of the abdomen and pelvis was largely negative except for a small inflammatory finding at the terminal ileus and infection could not be excluded. Patient's temp was 97.7?, blood pressure 147/67, heart rate 66, respiratory rate 18, oxygen saturation of 100% on room air, she weighs 77.1 kg with a BMI of 29.2. WBC was mildly elevated 11.2, RBC 5.46, hemoglobin 14.9, hematocrit 44.4, platelet count of 350, sodium 136, potassium 3.2, chloride 93, CO2 37, BUN 422, creatinine 0.7, GFR is greater than 60, liver enzymes largely normal, a moderate amount of bacteria or found in her urine and that has been sent off for culture. Urine tox screen was positive for THC, rest of substances tested were negative, so obviously the patient has not discontinued her marijuana use. COVID-19 was negative Discharge Providers Provider Date of admission: 07/03/20 18:01 Discharge Date: 07/04/20 Primary care physician: Inez Morocho DO Discharge provider: Josiah Cruz MD Summary Hospital Course Discharge Diagnosis: 1. Intractable nausea and vomiting 2. Cannabis daily use/dependency 3. Asymptomatic urinary bacteria without UTI 4. Acute hypokalemia 5. Acute dehydration Hospital Course: Patient was admitted and received IV fluids, IV and oral potassium replacement. Her serum potassium is 3.7, improved from low of 2.6. She has not thrown up in the past 16 hours. She is able to maintain adequate fluid intake and Jell-O. Unclear if vomiting is cannabis hyperemesis syndrome or other cause. Her urine and quantitative hCG was negative. She had moderate bacteria on UA microscopic and urine culture is growing only [id number] CFU per ml of Staph species. Patient denies any urinary burning, frequency or urgency. This does not seem as a clinical UTI. Status at Discharge Cognitive/behavioral status at discharge: oriented Functional status at discharge: independent ambulation Overall status at discharge: patient is progressing back to baseline Time Spent with Patient Time spent: Less than 30 minutes Exam Vital Signs (past 8 hours): - 07/04/20 08:00 07/04/20 09:20 07/04/20 12:00 Temperature 98.3 F 98.1 F Pulse Rate 52 L 52 L Respiratory Rate 16 16 Blood Pressure 107/66 142/92 H Pulse Oximetry 99 98 100 Oxygen Delivery Method Room Air Oxygen Flow Rate 0 Objective Labs Result Diagrams: 07/04/20 06:05 07/04/20 06:05 Labs: Laboratory Results - last 24 hr 07/03/20 07/03/20 07/03/20 09:50 15:16 17:50 WBC RBC Hgb Hct MCV MCH MCHC RDW Plt Count Neut % (Auto) Lymph % (Auto) [place] % (Auto) Eos % (Auto) Baso % (Auto) Neut # (Auto) Lymph # (Auto) [place] # (Auto) Eos # (Auto) Baso # (Auto) Sodium 135 L Potassium 2.6 L* Chloride 87 L Carbon Dioxide 37 H BUN 28 H Creatinine 0.78 Estimated GFR > 60.0 BUN/Creatinine Ratio 35.9 H Glucose 123 H Hemoglobin A1c Calcium 10.0 Magnesium Total Bilirubin 0.8 AST 27 ALT 26 Alkaline Phosphatase 63 Total Protein 8.3 H Albumin 4.8 Globulin 3.5 Albumin/Globulin Ratio 1.4 HCG, Quant < 2.4 U Opiates 300ng/mL cut Ur Oxycodone Screen Urine Methadone Screen Ur Barbiturates Screen U Tricyclic Antidepress Ur Phencyclidine Scrn Ur Amphetamines Screen U Methamphetamines Scrn Ur MDMA Scrn (Ecstasy) U Benzodiazepines Scrn Urine Cocaine Screen U Marijuana (THC) Screen COVID-19 PCR Negative 07/03/20 07/03/20 07/03/20 20:22 20:22 21:50 WBC RBC Hgb Hct MCV MCH MCHC RDW Plt Count Neut % (Auto) Lymph % (Auto) [place] % (Auto) Eos % (Auto) Baso % (Auto) Neut # (Auto) Lymph # (Auto) [place] # (Auto) Eos # (Auto) Baso # (Auto) Sodium 136 L Potassium 3.2 L Chloride 93 L Carbon Dioxide 37 H BUN 22 H Creatinine 0.70 Estimated GFR > 60.0 BUN/Creatinine Ratio 31.4 H Glucose 122 H Hemoglobin A1c 4.8 Calcium 9.8 Magnesium Total Bilirubin AST ALT Alkaline Phosphatase Total Protein Albumin Globulin Albumin/Globulin Ratio HCG, Quant U Opiates 300ng/mL cut Negative Ur Oxycodone Screen Negative Urine Methadone Screen Negative Ur Barbiturates Screen Negative U Tricyclic Antidepress Negative Ur Phencyclidine Scrn Negative Ur Amphetamines Screen Negative U Methamphetamines Scrn Negative Ur MDMA Scrn (Ecstasy) Negative U Benzodiazepines Scrn Negative Urine Cocaine Screen Negative U Marijuana (THC) Screen Positive H COVID-19 PCR 07/04/20 07/04/20 06:05 06:05 WBC 7.4 RBC 4.31 Hgb 11.9 L Hct 35.4 L MCV 82.2 MCH 27.6 MCHC 33.6 RDW 13.4 Plt Count 226 Neut % (Auto) 57.1 D Lymph % (Auto) 34.0 D [place] % (Auto) 8.6 Eos % (Auto) 0.2 L Baso % (Auto) 0.1 Neut # (Auto) 4200 Lymph # (Auto) 2500 [place] # (Auto) 600 Eos # (Auto) 0 Baso # (Auto) 0 Sodium 136 L Potassium 3.7 Chloride 99 Carbon Dioxide 36 H BUN 16 Creatinine 0.73 Estimated GFR > 60.0 BUN/Creatinine Ratio 21.9 Glucose 92 Hemoglobin A1c Calcium 9.3 Magnesium 2.5 H Total Bilirubin 0.7 AST 21 ALT 19 Alkaline Phosphatase 51 Total Protein 6.8 Albumin 3.9 Globulin 2.9 Albumin/Globulin Ratio 1.3 HCG, Quant U Opiates 300ng/mL cut Ur Oxycodone Screen Urine Methadone Screen Ur Barbiturates Screen U Tricyclic Antidepress Ur Phencyclidine Scrn Ur Amphetamines Screen U Methamphetamines Scrn Ur MDMA Scrn (Ecstasy) U Benzodiazepines Scrn Urine Cocaine Screen U Marijuana (THC) Screen COVID-19 PCR Discharge Plan Discharge Plan Patient Disposition: Home Discharge orders & Medications Prescriptions: New ondansetron 8 mg tablet,disintegrating 8 mg PO Q8H PRN (Reason: nausea and vomiting) Qty: 10 RF: 0 Continued acyclovir 400 mg tablet 400 mg PO TID Qty: 90 RF: 0 prenat.vits,janeth,[id number] Tablet 1 tab PO DAILY RF: 0 nystatin 100,000 unit/gram cream 1 applictn TOP BID Qty: 15 RF: 0 fluconazole 150 mg tablet 150 mg PO DAILY Qty: 7 RF: 0 docusate sodium [DOK] 100 mg Capsule 100 mg PO DAILY Qty: 30 RF: 0 ibuprofen 600 mg Tablet 600 mg PO Q6HR PRN (Reason: Pain, Mild (1-3)) Qty: 30 RF: 0 Follow up/Referrals: Inez Morocho DO [Primary Care Provider] - Discharge Health Status Multidrug resistant organism: No MDRO Diet/Activity/Treatments Diet: Diet as Tolerated Discharge Data Primary Care Provider: Inez Morocho Attending Provider: Geeta Dick Admit Date/Time: 07/03/20 18:01 Quality VTE Deep Vein Thrombosis/Pulmonary Embolism Present on Admission: No
--- NOTE | 2020-07-04 17:31 | PC.NURSE ---
late entry: A&Ox4. no n/v. pt just had a shower. no dizziness or light headedness. pt will drive herself home provider is aware of it. IV dc'd. all belongings returned to patient. reviewed meds with her. pt escorted via wheelchair
== END 2020-07-04 16:14 | disposition home or self-care (01) ==
LOC: ED 17:10 → AC 18:02
PROVIDERS: Nurse Practitioner Family; Admitting Provider Internal Medicine; Emergency Provider Emergency Medicine; PCP Family Medicine; Visit Provider Internal Medicine
DX: R11.2 Nausea with vomiting, unspecified (principal); R10.9 Unspecified abdominal pain; F12.90 Cannabis use, unspecified, uncomplicated; E87.6 Hypokalemia; E86.0 Dehydration; Z11.59 Encounter for screening for other viral diseases
CPT/HCPCS: 36415; 74177; 80048; 80053; 80305; 81003; 81015; 81025; 83036; 83690; 83735; 84702; 84703; 85025; 85610; 85730; 87077; 87086; 87635; 93005; 96361; 96365; 96366; 96367; 96375; 96376; 99285; G0378; C9113; J2060; J2405; J3480; J7050; Q9967

== ENCOUNTER 2020-07-29 06:46 | Day surgery (SDC) | payer OTHER, MEDICAID, SELFPAY ==
[2020-07-03 18:56] VITALS: BMI 29.2
[2020-07-29] VITALS (28 sets, daily range): BP systolic 88–195; BP diastolic 53–107; PULSE 57–87; RESP 17–24; TEMP 36.1–36.8; O2SAT 92–100; BMI 26.6
--- NOTE | 2020-07-29 07:36 | ED.NAVMDI ---
HPI - Nausea/Vomiting/Diarrhea General Chief complaint: Nausea/Vomiting/Diarrhea Stated complaint: vomiting since friday/ iud/ nausues Time Seen by Provider: 07/29/20 07:07 Source: patient Mode of arrival: Ambulatory Limitations: no limitations History of Present Illness HPI Narrative: Patient here for pelvic cramping as well as nonbloody nausea and vomiting. Patient states ate [employer] on Friday this past week. Had vomiting until . Resolved. Denies any sick contacts. No fever chills. No diarrhea. No cough cold congestion. Patient states she saw her OBGYN physician yesterday in the office. Negative test. Visit was IUD placement. After office visit had pelvic cramping. And started vomiting again. Review of notes from yesterday shows that Ativan works the best for her for vomiting/nausea. Patient gave in March and was . Patient seen by me 3 weeks ago and has been doing well until this week. No longer . Please see notes [place] [address] OB Office Visit Draft Patient: Iveth Gutierres NMR#: [id number] : 1990Acct:[id number] Age/Sex: 30 / FDate of Service: 07/28/20 Loc: [facility] Attending Dr: Inez Morocho D.O. Visit Genetic Screening Aneuploidy Screening Offered: Accepted EDILIA Calculator Estimated Delivery Date Method Current WG Current Estimate 04/24/20 LMP (Certain) 53w 4d Other Estimates 04/25/20 Ultrasound #1 53w 3d Expected Delivery Route/Plan Vaginal Specific Issues/Plans HSV - needs prophylaxis Marijuana use - encouraged to quit LEEP prior to Hyperemesis - standing order at infusion center for fluids, will try Reglan and lorazepam (discussed risks, benefits outweigh at this point as lorazepam has historically been the only helpful drug) Related Data Home Medications Medication Instructions Recorded Confirmed prenat.vits,janeth,[id number] 1 tab PO DAILY 09/13/19 07/28/20 Previous Rx's Medication Instructions Recorded acyclovir 400 mg tablet 400 mg PO TID #90 tab 03/27/20 lorazepam 0.5 mg tablet 0.5 mg PO DAILY PRN #20 tab 07/12/20 clindamycin HCl 300 mg PO TID #15 cap 07/29/20 ondansetron 8 mg disintegrating 8 mg PO Q8H PRN #30 tab 07/29/20 tablet oxycodone-acetaminophen [Percocet] 1 tab PO Q4H PRN #20 tab 07/29/20 sertraline 50 mg tablet See Rx Instructions PO DAILY #30 07/29/20 tab Allergies Allergy/AdvReac Type Severity Reaction Status Date / Time cetirizine [From Zyrtec] AdvReac Mild Verified 07/29/20 07:18 hydrocodone [From Vicodin] AdvReac Nausea Verified 07/29/20 07:18 Review of Systems Review of Systems Narrative: GENERAL: Denies chills, fatigue, malaise, fever, sweats. HEENT: Denies sinus pain, ear pain, sore throat, difficulty swallowing, dizziness. RESPIRATORY: Denies dyspnea, cough, wheezing, hemoptysis, sputum. CARDIOVASCULAR: Denies chest pain, palpitations, orthopnea, edema, GASTROINTESTINAL: Complains nausea, vomiting, abdominal pain, denies diarrhea, constipation, melena. : Denies dysuria, frequency, incontinence, hematuria, urinary retention. MUSCULOSKELETAL: denies weakness, joint pain, or bony pain SKIN: Denies rash, skin lesions, or other NEUROLOGIC: Denies weakness, headache, numbness, change in speech, confusion, seizures, incoordination. PSYCHIATRIC: No concerning psychosocial issues. ROS Unobtainable: All systems reviewed & are unremarkable except as noted in HPI and below Patient History Medical History (Updated 07/29/20 @ 11:59 by Inez Morocho DO) Abnormal Pap smear of cervix (Acute) Body piercing (Acute) Borderline hypertension (Acute) Forceps delivery (Inactive) Goiter (Chronic) Hiatal hernia (Chronic) HPV (human papilloma virus) infection (Acute) HSV infection (Acute) Hyperemesis gravidarum (Acute) Hyperthyroidism (Resolved) Pneumonia (Acute) Seasonal allergies (Acute) Spontaneous vaginal delivery (Inactive) Ulcer (Acute) Surgical History History of appendectomy (Resolved) S/P LEEP (Acute ~07/12/19) [place] teeth extracted (Resolved) Family History Mother Endometrial cancer Other Adopted Social History marital status: household members: spouse and children lives independently: Yes occupational status: employed Smoking Status: Former smoker alcohol intake: former substance use type: marijuana Smoking Status: Former smoker Substance Use Type: does not use Exam Narrative Exam Narrative: GENERAL: patient appears stated age. Well-nourished, well-developed patient, in no distress, not toxic HEAD: Atraumatic. Normocephalic. EYES: Pupils equal round and reactive. Extraocular motions intact. No scleral icterus. No injection or drainage. ENT: Nose without bleeding, purulent drainage. Throat without erythema, tonsillar hypertrophy or exudate. Airway patent. NECK: Trachea midline. Non tender CARDIOVASCULAR: Regular rate and rhythm without murmurs, gallops, or rubs. RESPIRATORY: Clear to auscultation. Breath sounds equal bilaterally. No wheezes, rales, or rhonchi. GASTROINTESTINAL: Abdomen soft, mild diffuse tenderness , nondistended. 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 Female. [place], normal external exam. Scant blood in the vagina. Unable to visualize IUD/os EXTREMITIES: No edema or joint tenderness. BACK: Nontender without deformity or crepitance. No flank tenderness. NEURO: AOx4. SKIN: No rash or erythema of visible areas PSYCH: Not anxious, is cooperative Initial Vital Signs Initial Vital Signs: Vital Signs Temperature 98.3 F 07/29/20 06:54 Pulse Rate 60 07/29/20 06:54 Respiratory Rate 17 07/29/20 06:54 Blood Pressure 195/107 H 07/29/20 06:54 Pulse Oximetry 98 07/29/20 06:54 Course Course Course Narrative: Spoke with radiologist 10:[address] scan the pelvis with IV contrast. He has spoken with the water quality technician and at this time no repeat ultrasound. Decision to Admit Date: 07/29/20 Decision to Admit time: 11:24 Orders Ordered: ED Orders 07/29/20 07:40 XR pelvis 1-2V Stat Urinalysis and Microscopic Stat 07/29/20 09:10 US pelvic limited Stat 07/29/20 11:30 COVID19 -ED/INPAT/OR/L&D Stat Fentanyl (Sublimaze) 0 mcg IV Q5MIN PRN PRN Reason: Pain, Severe (7-10) Haloperidol (Haldol) 1 mg IV Q15MIN PRN PRN Reason: Nausea Hydromorphone HCl (Dilaudid) 0 mg IV Q5MIN PRN PRN Reason: Pain, Mild (1-3) Lactated Ringer's (Lactated Ringers) 1,000 mls @ 42 mls/hr IV CONT CESAR Last Admin: 07/29/20 15:08 Dose: 42 mls/hr Documented by: APOORVA Lactated Ringer's (Lactated Ringers) 1,000 mls @ 120 mls/hr IV CONT CESAR Lorazepam (Ativan) 0.25 mg IV NOW PRN PRN Reason: Anxiety Ondansetron HCl (Zofran) 4 mg IV NOW PRN PRN Reason: Nausea And Vomiting Oxycodone HCl (Percolone) 5 mg PO PACUNOW PRN PRN Reason: Mild or moderate pain Oxycodone/Acetaminophen (Percocet 5/325) 1 tab PO Q4HR PRN PRN Reason: Pain, Moderate (4-6) Discontinued Medications Acetaminophen (Tylenol) 975 mg PO NOW ONE Stop: 07/29/20 14:03 Last Admin: 07/29/20 14:11 Dose: 975 mg Documented by: APOORVA Bupivacaine HCl/Epinephrine Bitart (Sensorcaine 0.5% W/ Epi (Pf)) 30 ml INJ NOW ONE Stop: 07/29/20 15:10 Last Admin: 07/29/20 15:09 Dose: 12 ml Documented by: MARCELA Sodium Chloride (Normal Saline 0.9%) 1,000 mls @ 1,000 mls/hr IV BOLUS ONE Stop: 07/29/20 08:34 Last Infusion: 07/29/20 08:55 Dose: 0 mls/hr Documented by: Admin: 07/29/20 07:50 Dose: 1,000 mls/hr Documented by: TREVON Potassium Chloride 20 meq/ (Sodium Chloride) 260 mls @ 130 mls/hr IV NOW ONE Stop: 07/29/20 10:13 Last Infusion: 07/29/20 10:35 Dose: 0 mls/hr Documented by: TREVON Cosigned by: RON Admin: 07/29/20 08:31 Dose: 130 mls/hr Documented by: TREVON Cosigned by: RON Clindamycin Phosphate (Cleocin) 900 mg in 50 mls @ 50 mls/hr IV NOW ONE Stop: 07/29/20 15:59 Last Infusion: 07/29/20 15:01 Dose: 0 mls/hr Documented by: Admin: 07/29/20 15:00 Dose: 50 mls/hr Documented by: APOORVA Lorazepam (Ativan) 1 mg IV NOW ONE Stop: 07/29/20 07:36 Last Admin: 07/29/20 07:50 Dose: 1 mg Documented by: TREVON Lorazepam (Ativan) 0.5 mg IV NOW ONE Stop: 07/29/20 12:41 Last Admin: 07/29/20 13:05 Dose: 0.5 mg Documented by: TREVON Medroxyprogesterone Acetate (Depo-Provera) 150 mg IM NOW ONE Stop: 07/29/20 15:42 Meperidine HCl (Demerol) 12.5 mg IV PACUNOW PRN PRN Reason: Mild pain or shivering Scopolamine (Transderm-Scop) 1 patch TOP NOW ONE Stop: 07/29/20 14:03 Last Admin: 07/29/20 14:12 Dose: 1 patch Documented by: PIPER Reevaluation(s) Reevaluation #1: Pain is controlled. Patient's provider at bedside and explained need for exploratory surgery for IUD Time: 11:24 Consultations Consultation #1: Dr Morocho in the emergency department. Has spoken patient. She has also spoken with tyre finisher and examiner dr pa and dr eisenberg, will transfer to OR for exploratory surgery. Do not order CT scan of pelvis Time: 11:25 Vital Signs Vital signs: Vital Signs - 8 hr 07/29/20 09:00 07/29/20 09:30 07/29/20 10:00 Pulse Rate 76 67 82 Blood Pressure 88/53 L 101/62 103/62 Pulse Oximetry 98 99 100 07/29/20 10:30 07/29/20 11:00 Pulse Rate 72 70 Blood Pressure 108/66 116/75 Pulse Oximetry 99 99 MDM - Nausea/Vomiting/Diarrhea Differential Diagnosis Differential diagnosis: Likely food poisoning, gastroenteritis and dehydration Medical Records Attestation: I reviewed the patient's medical records. Lab Data Attestation: I reviewed the patient's lab results. Result diagrams: 07/29/20 07:15 07/29/20 07:15 Labs: Lab Results 07/29/20 07/29/20 Range/Units 07:15 07:15 WBC 11.5 H (4.5-11.0) X10^3/uL RBC 5.11 (4.0-5.2) X10^6/uL Hgb 13.9 (12.0-16.0) g/dL Hct 41.2 (36-46) % MCV 80.7 (80-100) fL MCH 27.2 (26-34) PG MCHC 33.7 (30-36) % RDW 14.0 (11.6-14.8) % Plt Count 303 (150-400) X10^3/uL Neut % (Auto) 78.9 H (50-75) % Lymph % (Auto) 15.0 L (25-40) % [place] % (Auto) 5.8 (3-14) % Eos % (Auto) 0.1 L (2-4) % Baso % (Auto) 0.2 (0-2) % Neut # (Auto) 9000 H (8339-0432) /uL Lymph # (Auto) 1700 (5080-2175) /uL [place] # (Auto) 700 (0-900) /uL Eos # (Auto) 0 (0-450) /uL Baso # (Auto) 0 (0-100) /uL Sodium 137 (137-145) mmol/L Potassium 3.1 L (3.4-5.1) mmol/L Chloride 95 L (98-107) mmol/L Carbon Dioxide 28 (22-32) mmol/L BUN 15 (7-17) mg/dL Creatinine 0.74 (0.52-1.04) mg/dL Estimated GFR > 60.0 (>60) mL/min BUN/Creatinine Ratio 20.3 (6-22) Glucose 189 H (70-100) mg/dL Calcium 10.3 H (8.4-10.2) mg/dL Total Bilirubin 0.8 (0.2-1.3) mg/dL AST 23 (14-36) IU/L ALT 16 (<35) IU/L Alkaline Phosphatase 80 (38-126) U/L Total Protein 8.7 H (6.3-8.2) g/dL Albumin 5.1 H (3.5-5.0) g/dL Globulin 3.6 (1.7-4.1) g/dL Albumin/Globulin Ratio 1.4 (1.0-2.8) Imaging Data Pelvic x-ray: Radiologist's Impression: [address] [address] XRay Report Signed Patient: Iveth Gutierres [facility]#: [id number] : 1990Acct:[id number] Age/Sex: 30 / FDate of Service: 07/29/20 Loc: ED Accession Number: [id number] Procedure: XR pelvis 1-2V Ordering Provider: Jake Hung MD PROCEDURE: XR PELVIS 1-2V INDICATIONS: Pelvic pain no trauma TECHNIQUE: 1 view(s) of the pelvis acquired. COMPARISON: [facility], CT, CT ABDOMEN PELVIS W CON, 07/03/2020, 12:02. FINDINGS: Bones: No fractures or dislocations. No suspicious bony lesions. Soft tissues: Visualized bowel gas pattern is normal. No suspicious soft tissue calcifications. An IUD is seen overlying the central pelvis, which is new compared to the prior CT dated 07/03/2020. Incidental note is made of a metallic body ornamentation artifact. IMPRESSION: There is an IUD seen overlying the central pelvis, which is new compared to the prior CT dated 07/03/2020. If there is concern for improper IUD placement in this patient with pelvic pain, please consider a follow-up pelvic ultrasound or CT for further evaluation. Dictated by: Armand Hernandes M.D. on 07/29/2020 at 7:38 Approved by: Armand Hernandes M.D. on 07/29/2020 at 7:40 US - SETUP OPERATOR: Radiologist's Impression: [address] [address] Ultrasound Report Signed Patient: Iveth Gutierres [facility]#: [id number] : 1990Acct:[id number] Age/Sex: 30 / FDate of Service: 07/29/20 Loc: ED Accession Number: [id number] Procedure: US pelvic limited Ordering Provider: Jake Hung MD PROCEDURE: US PELVIC LIMITED INDICATIONS: Pelvic pain/IUD placement TECHNIQUE: Real-time transabdominal scanning was performed of the pelvic organs, with image documentation. COMPARISON: [facility], CT, CT ABDOMEN PELVIS W CON, 07/03/2020, 12:02. [facility], CR, XR PELVIS 1-2V, 07/29/2020, 7:51. FINDINGS: Uterus: Uterus is normal in size at 8.1 x 4.1 x 7 cm. Endometrium measures 8 mm in combined thickness. No IUD is seen within the uterus. Ovaries: The right ovary measures 4.1 x 2.5 x 2.4 cm. The left ovary measures 4.9 x 3 x 4 cm. The ovaries have a normal sonographic appearance, with a simple cyst seen within the left ovary, which measures up to 2.8 cm, which is considered to be within physiologic limits. No adnexal masses are seen. Other: No free pelvic fluid. Limited scanning through the kidneys shows no hydronephrosis. IMPRESSION: No IUD can be seen within the uterus. Given the plain film appearance and the patient's pelvic pain, please now consider a dedicated CT of the pelvis with IV contrast for further evaluation. Note: Findings and recommendations discussed by telephone with Dr. Hung at 9:15 a.m. [place] time on July 29, 2020. Dictated by: Armand Hernandes M.D. on 07/29/2020 at 9:09 Approved by: Armand Hernandes M.D. on 07/29/2020 at 9:25 [facility] Narrative Medical decision making narrative: Patient to be transferred to surgery for exploratory surgery. At request of chief sustainability officer. Patient has been informed by her provider. At bedside. No CT scan ordered per request of OBGYN provider Discharge Plan Departure Patient Disposition: Admitted to Surgery Clinical Impression: Pelvic pain, Acute hypokalemia Discharge Date/Time: 07/29/20 13:49 Admit Date/Time: 07/29/20 11:24 Admit Provider: Sosa Pa
--- NOTE | 2020-07-29 07:40 | DI.RAD.S_ITS ---
PROCEDURE: XR PELVIS 1-2V INDICATIONS: Pelvic pain no trauma TECHNIQUE: 1 view(s) of the pelvis acquired. COMPARISON: [facility], CT, CT ABDOMEN PELVIS W CON, 07/03/2020, 12:02. FINDINGS: Bones: No fractures or dislocations. No suspicious bony lesions. Soft tissues: Visualized bowel gas pattern is normal. No suspicious soft tissue calcifications. An IUD is seen overlying the central pelvis, which is new compared to the prior CT dated 07/03/2020. Incidental note is made of a metallic body ornamentation artifact. IMPRESSION: There is an IUD seen overlying the central pelvis, which is new compared to the prior CT dated 07/03/2020. If there is concern for improper IUD placement in this patient with pelvic pain, please consider a follow-up pelvic ultrasound or CT for further evaluation. Dictated by: Armand Hernandes M.D. on 07/29/2020 at 7:38 Approved by: Armand Hernandes M.D. on 07/29/2020 at 7:40
[2020-07-29 07:41] LABS: Add Manual Diff / Slide Review NO; Basophils Absolute Auto 0 /uL (0-100); Basophils Percent Auto 0.2 % (0-2); Eosinophils Absolute Auto 0 /uL (0-450); Eosinophils Percent Auto 0.1 % (2-4); Hematocrit 41.2 % (36-46); Hemoglobin 13.9 g/dL (12.0-16.0); Lymphocytes Absolute Auto 1700 /uL (1100-4500); Mean Corpuscular HGB Conc 33.7 % (30-36); Mean Corpuscular Hemoglobin 27.2 PG (26-34); Mean Corpuscular Volume 80.7 fL (80-100); Monocytes Absolute Auto 700 /uL (0-900); Monocytes Percent Auto 5.8 % (3-14); Neutrophils Absolute Auto 9000 /uL (1500-7000); Neutrophils Percent Auto 78.9 % (50-75); Platelet Count 303 X10^3/uL (150-400); Red Blood Cell Count 5.11 X10^6/uL (4.0-5.2); White Blood Cell Count 11.5 X10^3/uL (4.5-11.0)
[2020-07-29 07:47] LABS: Alanine Aminotransferase 16 IU/L (<35); Albumin 5.1 g/dL (3.5-5.0); Albumin Globulin Ratio 1.4 (1.0-2.8); Alkaline Phosphatase 80 U/L (38-126); Aspartate Aminotransferase 23 IU/L (14-36); BUN Creatinine Ratio 20.3 (6-22); Bilirubin Total 0.8 mg/dL (0.2-1.3); Blood Urea Nitrogen 15 mg/dL (7-17); Calcium 10.3 mg/dL (8.4-10.2); Carbon Dioxide 28 mmol/L (22-32); Chloride 95 mmol/L (98-107); Estimated Glomerular Filt Rate > 60.0 mL/min (>60); Globulin 3.6 g/dL (1.7-4.1); Glucose 189 mg/dL (70-100); HEMOLYSIS 15 (0-50); Potassium 3.1 mmol/L (3.4-5.1); Sodium 137 mmol/L (137-145); Total Protein 8.7 g/dL (6.3-8.2)
[2020-07-29] MEDS: LORazepam 2 MG/ML INJ 1 MG IV (07:50)
[2020-07-29] MEDS: SODIUM CHLORIDE 0.9% 1,000 ML 1000 ML IV (07:50)
--- NOTE | 2020-07-29 07:57 | PC.NURSE ---
Pt SPO2 below 90 s/p lorasepam administration. O2 2L NC applied.
[2020-07-29] MEDS: POTASSIUM CHLORIDE 20 MEQ in SODIUM CHLORIDE 0.9% 250 ML 130 ML IV (08:31)
--- NOTE | 2020-07-29 09:10 | DI.US.S_ITS ---
PROCEDURE: US PELVIC LIMITED INDICATIONS: Pelvic pain/IUD placement TECHNIQUE: Real-time transabdominal scanning was performed of the pelvic organs, with image documentation. COMPARISON: [facility], CT, CT ABDOMEN PELVIS W CON, 07/03/2020, 12:02. [facility], CR, XR PELVIS 1-2V, 07/29/2020, 7:51. FINDINGS: Uterus: Uterus is normal in size at 8.1 x 4.1 x 7 cm. Endometrium measures 8 mm in combined thickness. No IUD is seen within the uterus. Ovaries: The right ovary measures 4.1 x 2.5 x 2.4 cm. The left ovary measures 4.9 x 3 x 4 cm. The ovaries have a normal sonographic appearance, with a simple cyst seen within the left ovary, which measures up to 2.8 cm, which is considered to be within physiologic limits. No adnexal masses are seen. Other: No free pelvic fluid. Limited scanning through the kidneys shows no hydronephrosis. IMPRESSION: No IUD can be seen within the uterus. Given the plain film appearance and the patient's pelvic pain, please now consider a dedicated CT of the pelvis with IV contrast for further evaluation. Note: Findings and recommendations discussed by telephone with Dr. Hung at 9:15 a.m. [place] time on July 29, 2020. Dictated by: Armand Hernandes M.D. on 07/29/2020 at 9:09 Approved by: Armand Hernandes M.D. on 07/29/2020 at 9:25
--- NOTE | 2020-07-29 11:44 | PM.HP.1 ---
History of Present Illness History of Present Illness Chief complaint: vomiting since friday/ iud/ nausues Narrative: Patient is a 30-year-old 2 para 2 with a perforated uterus from IUD placement. She presented to the ER with nausea, vomiting, and pelvic cramping. Ultrasound showed that the IUD was not in the uterus. Patient History Medical History (Updated 07/29/20 @ 11:59 by Inez Morocho DO) Abnormal Pap smear of cervix (Acute) Body piercing (Acute) Borderline hypertension (Acute) Forceps delivery (Inactive) Goiter (Chronic) Hiatal hernia (Chronic) HPV (human papilloma virus) infection (Acute) HSV infection (Acute) Hyperemesis gravidarum (Acute) Hyperthyroidism (Resolved) Pneumonia (Acute) Seasonal allergies (Acute) Spontaneous vaginal delivery (Inactive) Ulcer (Acute) Surgical History History of appendectomy (Resolved) S/P LEEP (Acute ~07/12/19) [place] teeth extracted (Resolved) Family & Social History Family History Mother Endometrial cancer Other Adopted Social History: household members spouse,children lives independently Yes Safety & Behavioral: Feels Safe in Current Yes Environment Been Physically Hurt or No Threatened By a Person Tobacco & Substance use: Tobacco type cannabis/marijuana Smoking Status Former smoker alcohol intake former Substance Use Type does not use Meds Home Medications and Allergies Home Medications Medication Instructions Recorded Confirmed Type prenat.vits,janeth,[id number] 1 tab PO DAILY 09/13/19 07/28/20 History acyclovir 400 mg tablet 400 mg PO TID #90 tab 03/27/20 07/28/20 Rx lorazepam 0.5 mg tablet 0.5 mg PO DAILY PRN #20 tab 07/12/20 07/28/20 Rx ondansetron 8 mg disintegrating 8 mg PO Q8H PRN #30 tab 07/29/20 07/29/20 Rx tablet sertraline 50 mg tablet See Rx Instructions PO DAILY #30 07/29/20 07/29/20 Rx tab Allergies Allergy/AdvReac Type Severity Reaction Status Date / Time cetirizine [From Zyrtec] AdvReac Mild Verified 07/29/20 07:18 hydrocodone [From Vicodin] AdvReac Nausea Verified 07/29/20 07:18 Exam Vital Signs (past 8 hours): - 07/29/20 06:54 07/29/20 07:00 07/29/20 07:01 Temperature 98.3 F Pulse Rate 60 78 68 Respiratory Rate 17 Blood Pressure 195/107 H 139/92 H Pulse Oximetry 98 99 99 07/29/20 07:30 07/29/20 08:00 07/29/20 08:01 Temperature Pulse Rate 57 L 76 67 Respiratory Rate Blood Pressure 142/76 H 102/60 Pulse Oximetry 97 99 99 07/29/20 08:30 07/29/20 09:00 07/29/20 09:30 Temperature Pulse Rate 72 76 67 Respiratory Rate Blood Pressure 106/59 L 88/53 L 101/62 Pulse Oximetry 99 98 99 07/29/20 10:00 07/29/20 10:30 Temperature Pulse Rate 82 72 Respiratory Rate Blood Pressure 103/62 108/66 Pulse Oximetry 100 99 Oxygen Delivery Method Room Air Narrative Exam Narrative: HEENT: No thyromegaly, no anterior cervical or supraclavicular lymphadenopathy. Lungs:Clear to auscultation bilaterally, no wheezes. Cardiovascular: Regular rate and rhythm, no murmurs, rubs, or gallops. Abdomen: Well-healed right lower quadrant scar. No hepatosplenomegaly. No masses palpable. External genitalia: Normal Vagina: Normal Cervix: Parous Bimanual exam: 8 Week size anteverted uterus. Mobile. Slightly tender. Rectal: No masses. Objective Labs Result Diagrams: 07/29/20 07:15 07/29/20 07:15 Labs: Laboratory Results - last 24 hr 07/29/20 07/29/20 07:15 07:15 WBC 11.5 H RBC 5.11 Hgb 13.9 Hct 41.2 MCV 80.7 MCH 27.2 MCHC 33.7 RDW 14.0 Plt Count 303 Neut % (Auto) 78.9 H Lymph % (Auto) 15.0 L [place] % (Auto) 5.8 Eos % (Auto) 0.1 L Baso % (Auto) 0.2 Neut # (Auto) 9000 H Lymph # (Auto) 1700 [place] # (Auto) 700 Eos # (Auto) 0 Baso # (Auto) 0 Sodium 137 Potassium 3.1 L Chloride 95 L Carbon Dioxide 28 BUN 15 Creatinine 0.74 Estimated GFR > 60.0 BUN/Creatinine Ratio 20.3 Glucose 189 H Calcium 10.3 H Total Bilirubin 0.8 AST 23 ALT 16 Alkaline Phosphatase 80 Total Protein 8.7 H Albumin 5.1 H Globulin 3.6 Albumin/Globulin Ratio 1.4 Pelvic x-ray: IUD lying upside down in the pelvis Pelvic ultrasound: Nothing in the uterus. No free fluid. Assessment & Plan Assessment & Plan narrative: Assessment: 30-year-old 2 para 2 with a perforated uterus with an IUD in the peritoneal cavity Plan: Laparoscopic removal of the IUD and cautery of the perforation in the uterus The risks, benefits, and alternatives to the procedure were explained to the patient. The risks including bleeding, infection, injury to the bowel, bladder, or ureters. She understands these risks and agrees to proceed. A full par Q was held and consent form was signed. COVID-19 COVID-19 status: Negative Result date/Date tested (Pos, Neg/Pending): 07/29/20 Time Spent With Patient Time with patient: 15-24 minutes
[2020-07-29 11:56] LABS: COVID19 -Nasal RAPID Negative (Negative)
[2020-07-29] MEDS: LORazepam 2 MG/ML INJ 0.5 MG IV (13:05)
--- NOTE | 2020-07-29 14:04 | PM.PREOP ---
Pre-operative Note COVID-19 COVID-19 status: Negative Result date/Date tested (Pos, Neg/Pending): 07/29/20 Interval Note History & Physical reviewed/Exam performed by Physician: Yes Changes to H&P: No H&P completed within 30 days and has changed as indicated here:: 07/29/20
[2020-07-29] MEDS: ACETAMINOPHEN 325 MG TABLET 975 MG PO (14:11)
[2020-07-29] MEDS: SCOPOLAMINE 1 PATCH TOP (14:12)
--- NOTE | 2020-07-29 14:13 | SUR.OPER ---
Lithotomy on padded OR bed, head on pillow, arms secured on padded arm boards at <90 degrees abduction. Legs secured in padded yellow fins stirrups.
[2020-07-29] MEDS: CLINDAMYCIN 900 MG/50 ML PIGGYBACK 50 MG IV (15:00)
[2020-07-29] MEDS: LACTATED RINGERS 1,000 ML 42 ML IV (15:08)
[2020-07-29] MEDS: BUPIVACAINE 0.5% W/ EPI (PF) 30 ML VIAL INJ (15:09)
--- NOTE | 2020-07-29 15:36 | PM.GYNOP.1 ---
Operative Date/Time/Diagnoses Date of procedure: 07/29/20 Time of procedure: 15:36 Pre-op diagnosis: Perforated uterus IUD in abdomen Omental to anterior abdominal wall adhesions Post-op diagnosis: same Procedure & Clinicians Procedure: Procedures Operation Date: 07/29/20 19:15 Actual Procedures Side Surgeon p Laparoscopy, Diagnostic, BSA OFFICER, REMOVAL OF IUD, CAUTERIZATION OF UTERINE PERFORATION Not Applicable Sosa Pa MD Indications: Perforated uterus IUD in the abdominal cavity, stuck to the omentum Surgeon: Sosa Pa Sales Assistant Displays: Inez Morocho Anesthesia Type: General Operative Notes Findings: 8 week size uterus Normal tubes and ovaries Appendix previously removed Omental to anterior abdominal wall adhesions in the right lower quadrant Perforation posteriorly mid uterus Mirena IUD stuck in the omentum Small amount of serosanguinous fluid in the pelvis Closure Type: primary Specimen(s): none Estimated blood loss (mL): 5 Blood products transfused: none Procedure in detail: After informed consent was obtained, the patient was taken to the operating room where she was placed in the dorsal supine position. After adequate general endotracheal anesthesia was achieved, she was placed in the dorsal lithotomy position, and prepped and draped in the usual sterile fashion. A time-out was performed. A bivalve speculum was placed into the vagina and the anterior lip of the cervix was grasped with a single-tooth tenaculum. There was a significant odor coming from the vagina and a decision was made to add 900 mg of clindamycin. This was given through the IV. The cervical os was sequentially dilated until the Zumi uterine manipulator could pass just into the endometrial cavity with care not to press the Zumi up against the uterine wall. The single-tooth tenaculum was removed from the anterior lip of the cervix. The bivalve speculum was removed from the vagina. Attention was then turned to the abdomen where 6 cc of 0.5% Marcaine with epinephrine were injected in the umbilical fold. A 5 mm incision was made. The Veress needle was placed into the peritoneal cavity, and its placement confirmed by aspiration and drop test. The abdominal cavity was insufflated with 4.2 L of CO2. The Veress needle was removed, and a 5 mm trocar was placed without difficulty. The IUD could be immediately seen in the omentum in the lower abdomen. Two other incisions were made lateral to the umbilicus approximately 2 cm below the umbilicus after 6 cc of 0.5% Marcaine with epinephrine were injected, and long 5 mm trocars were placed under direct visualization. The IUD was grasped with an atraumatic grasper and the Claudia grasper was used to tease the IUD strings out of the omentum. The IUD was then grasped at the lower and near the strings. The IUD was brought up through the left lateral trocar without difficulty. The uterus was lifted out of the pelvis. There was a perforation noted in the mid body of the uterus posteriorly. This was cauterized for hemostasis. There was some serosanguineous fluid in the posterior cul-de-sac. Irrigation was used to clean the pelvis and the serosanguineous fluid was aspirated. There was no bleeding noted from the posterior uterus. The tubes and ovaries were found to be normal. Over in the right lower quadrant there was omental to anterior abdominal wall adhesions from prior appendectomy. These were taken down with the Endo Ronnie hook to cautery. Hemostasis was achieved. The gallbladder and liver were examined and were found to be normal. The pelvis was once again examined and there was no bleeding noted. The instruments were removed from the abdomen. The CO2 was allowed to escape. The trocars were removed. The incisions were repaired with 4 0 Biosyn in a subcuticular fashion. Steri-Strips, 2 x 2, and op site were placed over the 3 incisions. The Zumi uterine manipulator was removed from the uterus. Sponge, lap, and instrument counts were correct x2. The patient tolerated the procedure well, was taken to PACU in stable condition. Complications: none Post-operative Condition: stable Disposition: PACU Plan for aftercare: Home after recovery
[2020-07-29] MEDS: ONDANSETRON 4 MG/2 ML INJ IV (16:43)
[2020-07-29] MEDS: MEDROXYPROGESTERONE 150 MG/ML SYRINGE IM (16:47)
== END 2020-07-29 17:15 | disposition home or self-care (01) ==
LOC: ED 11:22 → AC 11:25 → OR 08-02 08:06
PROVIDERS: Emergency Provider Emergency Medicine; PCP Family Medicine; Referring Provider Emergency Medicine; Visit Provider Obstetrics & Gynecology
PROC: (CPT 49320; principal; 2020-07-29 19:15)
DX: T83.39XA Other mechanical complication of intrauterine contraceptive device, initial encounter (principal); Y76.1 Therapeutic (nonsurgical) and rehabilitative obstetric and gynecological devices associated with adverse incidents; K66.0 Peritoneal adhesions (postprocedural) (postinfection); Z11.59 Encounter for screening for other viral diseases
CPT/HCPCS: 49329; 72170; 76830; 76857; 80053; 85025; 87635; 99284; G0378; J0330; J1050; J1885; J2060; J2250; J2405; J2704; J3480

== ENCOUNTER 2020-12-01 16:53 | Emergency (ER) | payer OTHER, MEDICAID, SELFPAY ==
[2020-07-03 18:56] VITALS: BMI 29.2
[2020-12-01 17:13] VITALS: BP 131/91; PULSE 73; RESP 14; TEMP 36.7; O2SAT 97; BMI 26.9
[2020-12-01] MEDS: ONDANSETRON 4 MG ODT SL (17:30)
== END 2020-12-01 19:25 | disposition left against medical advice (07) ==
PROVIDERS: Emergency Provider Emergency Medicine; PCP Family Medicine
DX: R11.2 Nausea with vomiting, unspecified (principal)
CPT/HCPCS: 99281

== ENCOUNTER → 2023-08-27 10:37 | Outpatient (CLI) | payer OTHER, MEDICAID, SELFPAY ==
[2020-07-03 18:56] VITALS: BMI 29.2
[2023-08-27 13:02] LABS: HCG Quantitative /Beta subunit 215.1 mIU/mL
== END ==
PROVIDERS: PCP Student in an Organized Health Care Education/Training Program
DX: O20.0 Threatened abortion (principal)
CPT/HCPCS: 36415; 84702

== ENCOUNTER → 2023-08-29 11:20 | Outpatient (CLI) | payer OTHER, MEDICAID, SELFPAY ==
[2020-07-03 18:56] VITALS: BMI 29.2
[2023-08-29 14:01] LABS: HCG Quantitative /Beta subunit 77.5 mIU/mL
== END ==
PROVIDERS: PCP Student in an Organized Health Care Education/Training Program
DX: O20.0 Threatened abortion (principal)
CPT/HCPCS: 36415; 84702

== ENCOUNTER → 2025-04-22 15:21 | Outpatient (CLI) | payer OTHER, SELFPAY ==
[2020-07-03 18:56] VITALS: BMI 29.2
[2025-04-22 16:24] LABS: Hematocrit 36.5 % (36-46); Hemoglobin 12.3 g/dL (12.0-16.0); Mean Corpuscular HGB Conc 33.6 % (30-36); Mean Corpuscular Hemoglobin 28.7 PG (26-34); Mean Corpuscular Volume 85.3 fL (80-100); Platelet Count 265 X10^3/uL (150-400); Red Blood Cell Count 4.27 X10^6/uL (4.0-5.2); Red Cell Distribution Width 13.8 % (11.6-14.8); White Blood Cell Count 8.6 X10^3/uL (4.5-11.0)
[2025-04-22 16:43] LABS: Iron 74 ug/dL (37-170)
[2025-04-22 16:44] LABS: Alanine Aminotransferase 39 IU/L (<35); Albumin 4.3 g/dL (3.5-5.0); Albumin Globulin Ratio 1.7 (1.0-2.8); Alkaline Phosphatase 59 U/L (38-126); Aspartate Aminotransferase 24 IU/L (14-36); BUN Creatinine Ratio 16.1 (6-22); Bilirubin Total 0.3 mg/dL (0.2-1.3); Blood Urea Nitrogen 10 mg/dL (7-17); Calcium 9.4 mg/dL (8.4-10.2); Carbon Dioxide 29 mmol/L (22-32); Chloride 104 mmol/L (98-107); Estimated Glomerular Filt Rate > 60 mL/min (>60); Globulin 2.5 g/dL (1.7-4.1); Glucose 69 mg/dL (70-99); HEMOLYSIS < 15 (0-50); Potassium 4.3 mmol/L (3.4-5.1); Sodium 140 mmol/L (137-145); Total Protein 6.8 g/dL (6.3-8.2)
[2025-04-22 16:50] LABS: Neutrophils Absolute Manual 6622 /uL (3000-5900); RBC Morphology Normal Morphology; Total Cells Counted 100
[2025-04-22 17:01] LABS: Follicle Stimulating Hormone 6.17 mIU/mL
[2025-04-22 17:17] LABS: Thyroid Stimulating Hormone 0.303 uIU/mL (0.47-4.68)
[2025-04-22 17:20] LABS: Ferritin 19 ng/mL (6-137)
[2025-04-25 14:40] LABS: Free T3, Triiodothyronine Free 4.69 pg/mL (2.77-5.27); Free T4, Direct Thyroxine 1.01 ng/dL (0.78-2.19)
[2025-04-30 09:09] LABS: Testosterone % Fr + Wkly bound 14.3 % (3.0-18.0); Testosterone Fr+Wkly bound 4.2 ng/dL (0.0-9.5); Testosterone, Total 29.5 ng/dL (10.0-55.0)
== END ==
PROVIDERS: PCP Student in an Organized Health Care Education/Training Program; Referring Provider Student in an Organized Health Care Education/Training Program; Visit Provider Student in an Organized Health Care Education/Training Program
DX: R63.5 Abnormal weight gain (principal); R53.83 Other fatigue; N94.6 Dysmenorrhea, unspecified; Z86.39 Personal history of other endocrine, nutritional and metabolic disease; R79.89 Other specified abnormal findings of blood chemistry
CPT/HCPCS: 36415; 80053; 82728; 83001; 83036; 83540; 84403; 84439; 84443; 84481; 85025

== ENCOUNTER → 2025-06-02 10:58 | Outpatient (CLI) | payer OTHER, SELFPAY ==
[2020-07-03 18:56] VITALS: BMI 29.2
--- NOTE | 2025-06-02 10:59 | DI.US.S_ITS ---
PROCEDURE: US THYROID INDICATIONS: eval and treat TECHNIQUE: Real-time scanning was performed of the thyroid gland, with image documentation. COMPARISON: None. FINDINGS: Thyroid: Right lobe measures 4.2 x 1.2 x 1.1 cm. Left lobe measures 3.7 x 0.7 x 1.3 cm. Isthmus is 0.2 cm thick. Echotexture is homogeneous. Nodule number: 1 Location: Right isthmus Size: 2.5 x 1.0 x 1.9 cm. Composition: Mixed solid and cystic Echogenicity: Hypoechoic Shape: wider than tall. Margins: Smooth Echogenic foci: None Total points: 3 ACR TI-RADS category: 3 IMPRESSION: Single 2.5 cm TR3 nodule at the thyroid isthmus. Recommend ultrasound-guided fine-needle aspiration for further evaluation. ACR TI-RADS definitions and recommendations: TI-RADS 1 (benign): 0 points. FNA not needed. TI-RADS 2 (not suspicious): 2 points. FNA not needed. TI-RADS 3: 3 points. * FNA if 2.5 cm or larger, follow up if 1.5 cm or larger (at 1, 3, and 5 years). TI-RADS 4: 4-6 points. * FNA if 1.5 cm or larger, follow up if 1 cm or larger (at 1, 2, 3, and 5 years). TI-RADS 5: 7 points or more. * FNA if 1 cm or larger, follow up if 0.5 cm or larger (every year for 5 years). Approved by: Dayron Beckett M.D. on 06/02/2025 at 15:40
== END ==
PROVIDERS: PCP Student in an Organized Health Care Education/Training Program; Referring Provider Student in an Organized Health Care Education/Training Program; Visit Provider Student in an Organized Health Care Education/Training Program
DX: E04.1 Nontoxic single thyroid nodule (principal); R63.5 Abnormal weight gain
CPT/HCPCS: 76536

== ENCOUNTER → 2025-09-09 13:37 | Outpatient (CLI) | payer OTHER, SELFPAY ==
[2025-06-02 10:12] VITALS: BMI 29.2
--- NOTE | 2025-09-09 13:40 | DI.RAD.S_ITS ---
PROCEDURE: XR LUMBAR SPINE 5V INDICATIONS: BACK PAIN TECHNIQUE: 5 views of the lumbar spine were acquired, including bilateral oblique views. COMPARISON: None. FINDINGS: Bones: 5 nonrib-bearing vertebrae are present. Mild levoscoliosis commonly may be artifact from positioning. No vertebral body compression fractures. No suspicious bony lesions. Mild Degenerative changes with facet osseous hypertrophic changes most notably L4-5 and L5-S1 without radiographic evidence of significant neural foraminal narrowing. Soft tissues: Overlying bowel gas pattern is normal. No suspicious soft tissue calcifications. Oblique images: No radiographic evidence of pars defects. IMPRESSION: Degenerative changes L4-5 and L5-S1. No radiographic evidence of fracture or subluxation. If symptoms persist or worsen, or there is high clinical suspicion of lumbar abnormality, MRI could be performed. Dictated by: Jonathon Villa M.D. on 09/09/2025 at 14:45 Approved by: Jonathon Villa M.D. on 09/09/2025 at 14:47
== END ==
PROVIDERS: PCP Student in an Organized Health Care Education/Training Program; Referring Provider Physical Medicine & Rehabilitation; Visit Provider Physical Medicine & Rehabilitation
DX: M54.17 Radiculopathy, lumbosacral region (principal); M54.50 Low back pain, unspecified; M54.31 Sciatica, right side
CPT/HCPCS: 72110; 99213

== ENCOUNTER → 2025-10-19 10:11 | Outpatient (CLI) | payer OTHER, SELFPAY ==
[2025-06-02 10:12] VITALS: BMI 29.2
[2025-10-19 11:15] LABS: Follicle Stimulating Hormone 3.65 mIU/mL
[2025-10-19 11:16] LABS: HCG Quantitative /Beta subunit < 2.39 mIU/mL
[2025-10-19 11:29] LABS: TSH w/ Reflex to FT4 0.41 uIU/mL (0.47-4.68)
[2025-10-19 11:55] LABS: Free T4, Direct Thyroxine 1.00 ng/dL (0.78-2.19)
== END ==
PROVIDERS: PCP Student in an Organized Health Care Education/Training Program; Referring Provider Student in an Organized Health Care Education/Training Program; Visit Provider Student in an Organized Health Care Education/Training Program
DX: Z32.00 Encounter for pregnancy test, result unknown (principal); N64.4 Mastodynia; R23.2 Flushing; E03.9 Hypothyroidism, unspecified; Z86.39 Personal history of other endocrine, nutritional and metabolic disease
CPT/HCPCS: 36415; 82672; 83001; 84146; 84439; 84443; 84702